=== PATIENT | male | born 1960 | race Caucasian/White ===

== ENCOUNTER 2020-08-13 13:41 | Inpatient (IN) | payer MEDICARE ==
[2020-08-13] MEDS ORDERED: MORPHINE 4 MG/ML SYR ONE (14:20)
[2020-08-13] MEDS ORDERED: ONDANSETRON 4 MG/2 ML VIAL ONE ×2 (14:20→18:42)
--- NOTE | 2020-08-13 15:04 | RAD REPORT ---
EXAM DESCRIPTION: RAD - Chest Single View - 08/13/2020 2:26 pm CLINICAL HISTORY: CHEST PAIN, shortness of breath COMPARISON: None TECHNIQUE: AP portable chest image was obtained 08/13/2020 2:26 pm . FINDINGS: Lungs are clear. Heart and vasculature are normal. No measurable pleural effusion and no p neumothorax. No acute bony abnormality seen. No acute aortic findings suspected. IMPRESSION: No acute cardiopulmonary process.
[2020-08-13 15:33] LABS: Absolute Lymphocytes (CBC) 1.6 K/uL (0.7-4.9); Basophils % 0.5 % (0-1.3); Hematocrit 46.8 % (39.6-49.0); Lymphocytes % 10.2 % (15.3-44.8); MPV 8.3 fL (7.6-11.3); Protime INR 1.03
[2020-08-13] MEDS ORDERED: NA CHLORIDE 0.9% 1,000 ML ONE ×3 (15:36→20:48)
[2020-08-13] MEDS ORDERED: NITROGLYCERIN 0.4 MG/TAB SL ONE (15:36)
[2020-08-13 15:48] LABS: Albumin 4.5 g/dL (3.4-5.0); Bilirubin Direct 0.2 mg/dL (0-0.2); Bilirubin Total 1.1 mg/dL (0.2-1.0); Magnesium 2.1 mg/dL (1.8-2.4); Potassium 3.8 mmol/L (3.5-5.1); Protein, Total 8.4 g/dL (6.4-8.2)
[2020-08-13 15:52] LABS: Troponin (Emerg Dept Use Only) 0.56 ng/mL (0.0-0.045)
[2020-08-13] MEDS ORDERED: ASPIRIN 81 MG CHEWABLE TABLET ONE (16:20)
[2020-08-13] MEDS ORDERED: FENTANYL CITR 100 MCG/2 ML ONE (16:21)
[2020-08-13] MEDS ORDERED: ENOXAPARIN 100 MG/ML SYR SQ ONE (16:21)
--- NOTE | 2020-08-13 16:23 | ER ---
Nurse's Notes [facility] Name: Srinivasa Singer Age: 60 yrs Sex: Male : 1960 Arrival Date: 08/13/2020 Time: 13:43 Bed 4 Private MD: Diagnosis: Non-ST elevation (NSTEMI) myocardial infarction Presentation: 08/13 13:44 Chief complaint: Patient states: CP and SOB for 2 hours [employer]. Numbness/tingling R arm. ll1 Coronavirus screen: Client denies travel out of the [place] in the last 14 days. At this time, the client does not indicate any symptoms associated with coronavirus-19. Ebola Screen: Patient denies travel to an Ebola-affected area in the 21 days before illness onset. Initial Sepsis Screen: Does the patient meet any 2 criteria? No. Patient's initial sepsis screen is negative. Does the patient have a suspected source of infection? No. Patient's initial sepsis screen is negative. Risk Assessment: Do you want to hurt yourself or someone else? Patient reports no desire to harm self or others. Onset of symptoms was August 13, 2020. 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 - Social history:: Smoking status: Patient denies any tobacco usage or history of. - Family history:: not pertinent. - Hospitalizations: : No recent hospitalization is reported. Screenin:00 Abuse screen: Denies threats or abuse. Denies injuries from another. Nutritional jl7 screening: No deficits noted. Tuberculosis screening: No symptoms or risk factors identified. Fall Risk IV access (20 points). Total Ramirez Fall Scale indicates No Risk (0-24 pts). Assessment: 14:00 General: Appears in no apparent distress. uncomfortable, Behavior is calm, cooperative, jl7 appropriate for age. Pain: Complains of pain in anterior aspect of left upper chest Pain radiates to left arm Pain currently is 10 out of 10 on a pain scale. Quality of pain is described as burning, Pain began suddenly, 2 hours ago. Is continuous. Neuro: Level of Consciousness is awake, alert, obeys commands, Oriented to person, place, time, situation. Cardiovascular: Reports chest pain, nausea, vomiting. Respiratory: Airway is patent Respiratory effort is even, unlabored, Respiratory pattern is regular, symmetrical. Derm: Skin is pink, warm \T\ dry. 15:02 Reassessment: Patient appears in no apparent distress at this time. Patient and/or jd3 family updated on plan of care and expected duration. Pain level reassessed. Patient is alert, oriented x 3, equal unlabored respirations, skin warm/dry/pink. 16:26 Reassessment: Patient appears in no apparent distress at this time. Patient and/or jd3 family updated on plan of care and expected duration. Pain level reassessed. Patient is alert, oriented x 3, equal unlabored respirations, skin warm/dry/pink. 17:25 Reassessment: Patient appears in no apparent distress at this time. Patient and/or jd3 family updated on plan of care and expected duration. Pain level reassessed. Patient is alert, oriented x 3, equal unlabored respirations, skin warm/dry/pink. 18:25 Reassessment: Patient appears in no apparent distress at this time. Patient and/or jd3 family updated on plan of care and expected duration. Pain level reassessed. Patient is alert, oriented x 3, equal unlabored respirations, skin warm/dry/pink. provider at bedside discussing plan of care. 20:00 Reassessment: life flight will come in 30 minutes, call made to [facility] they said rr5 to call back after 10minutes. 20:06 General: Appears in no apparent distress. comfortable, Behavior is calm, cooperative, rr5 appropriate for age. Pain: Complains of pain in chest. Neuro: Level of Consciousness is awake, alert, obeys commands, Oriented to person, place, time. Cardiovascular: Reports chest pain, Capillary refill < 3 seconds Patient's skin is warm and dry. Respiratory: Airway is patent Respiratory effort is even, unlabored, Respiratory pattern is regular, symmetrical. Derm: Skin is intact, is healthy with good turgor, Skin temperature is warm. 20:39 Reassessment: Patient appears in no apparent distress at this time. Patient is alert, rr5 oriented x 3, equal unlabored respirations, skin warm/dry/pink. report given to [facility] awake alert vital signs taken and recorded. Vital Signs: 13:44 BP 128 / 78; Pulse 80; Resp 18; Temp 97.2; Pulse Ox 98% ; Weight 92.99 kg; Height 5 ft. ll1 8 in. (172.72 cm); Pain 10/10; 15:01 BP 126 / 78; Pulse 85; Resp 17 S; Pulse Ox 95% on R/A; jd3 16:26 BP 106 / 56; Pulse 85; Resp 15 S; Pulse Ox 100% on R/A; jd3 17:42 BP 90 / 68; Pulse 84; Resp 16 S; Pulse Ox 95% on R/A; jd3 18:30 BP 92 / 64; Pulse 88; Resp 17 S; Pulse Ox 95% on R/A; jd3 19:58 BP 92 / 71; Pulse 102; Resp 16; Pulse Ox 96% ; rr5 20:43 BP 95 / 62; Pulse 100; Resp 19; Pulse Ox 95% ; rr5 13:44 Body Mass Index 31.17 (92.99 kg, 172.72 cm) ll1 ED Course: 13:43 Patient arrived in ED. ll1 13:45 Triage completed. ll1 13:46 Arm band placed on. ll1 13:53 Valeriy Pace MD is Attending Physician. rn 14:00 Patient has correct armband on for positive identification. Placed in gown. Bed in low jl7 position. Call light in reach. Side rails up X 1. cattle sticker on. Pulse ox on. NIBP on. 14:00 EKG done, by ED staff, reviewed by Valeriy Pace MD. Patient maintains SpO2 saturation jl7 greater than 95% on room air. 14:10 Missed attempt(s): 22 gauge in right upper arm. Bleeding controlled, band aid applied, jl7 catheter tip intact. 14:15 Missed attempt(s): 22 gauge in right hand. Bleeding controlled, band aid applied, jl7 catheter tip intact. 14:21 Laura Mccoy, AJD is Primary Nurse. jl7 14:26 XRAY Chest (1 view) In Process Unspecified. EDMS 14:55 Initial lab(s) drawn, by me, sent to lab. Inserted saline lock: 20 gauge in right jl7 antecubital area, using aseptic technique. ,using aseptic technique. VIA US by DR. PACE Blood collected. 15:01 Daniel Gerber, RN is Primary Nurse. jd3 16:21 Renan Jean MD is Hospitalizing Provider. rn 16:46 Chest Angio In Process Unspecified. EDMS 18:23 Notified ED physician of a critical lab result(s). Trop 7.0, CK MB 52.3 Notified ca1 primary nurse of. 18:34 Initiated transfer at [facility] with Xander. Stated he would work on checking for a bed tt3 and call back. 19:00 Xander called back and stated that they don't have any CCU beds currently but are working tt3 to make accommodations for the pt. Informed Dr. Pace. 19:01 Initiated transfer at [facility] with Giulia Richardson. Stated she would do a bed tt3 check and call back. 19:09 Giulia Richardson called back and stated that they would have to deny due to capacity. tt3 19:11 Initiated transfer at [facility] with Lorena Hawk. Stated she would do a bed check tt3 and call back. 19:28 Initiated transfer at [facility] with Esmer Queen. Stated she would do a capacity check and tt3 call back. 19:30 [facility] called back and did a consult with Dr. Pace. Was informed the pt was tt3 accepted. Waiting for admin approval. [facility] to be called for transport. 19:31 Giulia Richardson from [facility] called and stated that the [facility] would tt3 have to deny due to capacity as well. 19:35 Vanessa Londono from [facility] called back with admin approval. The accepting physician tt3 is Dr. Gibson. Dr. Gibson accepted at 19:33. The pt is going to [facility] CCU 2 Bed 6211. Nurse to call report to . Face sheet and covid results faxed to per Vanessa's request. 20:43 No provider procedures requiring assistance completed. Patient transferred, IV remains rr5 in place. intact, No redness/swelling at site. Administered Medications: 14:42 Drug: morphine 4 mg Route: IVP; Site: right antecubital; jl7 15:40 Follow up: Response: No adverse reaction; RASS: Alert and Calm (0) jd3 14:45 Drug: Zofran (Ondansetron) 4 mg Route: IVP; Site: right antecubital; jl7 15:40 Follow up: Response: No adverse reaction jd3 15:20 Drug: Nitroglycerin 0.4 mg Route: Sublingual; ca1 16:00 Follow up: Response: No adverse reaction jd3 15:20 Drug: NS 0.9% 1000 ml Route: IV; Rate: 1000 ml; Site: right antecubital; ca1 16:00 Follow up: Response: No adverse reaction; IV Status: Completed infusion; IV Intake: jd3 1000ml 16:25 Drug: Aspirin Chewable Tablet 324 mg Route: PO; jd3 17:20 Follow up: Response: No adverse reaction jd3 16:25 Drug: fentaNYL (PF) 75 mcg Route: IVP; Site: left antecubital; jd3 17:20 Follow up: Response: No adverse reaction; RASS: Alert and Calm (0) jd3 16:25 Drug: Lovenox (enoxaparin) 1 mg/kg Route: Sub-Q; Site: abdomen; jd3 17:20 Follow up: Response: No adverse reaction jd3 17:44 Drug: NS 0.9% 1000 ml Route: IV; Rate: 1 bolus; Site: left antecubital; jd3 18:40 Follow up: Response: No adverse reaction; IV Status: Completed infusion; IV Intake: jd3 1000ml 18:32 Drug: Zofran (Ondansetron) 4 mg Route: IVP; Site: left antecubital; jd3 19:17 Follow up: Response: No adverse reaction jd3 18:38 Drug: PlaVIX (clopidogrel) 300 mg Route: PO; jd3 19:18 Follow up: Response: No adverse reaction jd3 Intake: 16:00 IV: 1000ml; Total: 1000ml. jd3 18:40 IV: 1000ml; Total: 2000ml. jd3 Outcome: 16:22 Decision to Hospitalize by Provider. rn 19:05 ER care complete, transfer ordered by MD. rn 20:43 Transferred by helicopter to [facility], Transfer form completed. rr5 20:43 Condition: stable 20:43 Instructed on the need for transfer. 20:43 Patient left the ED. rr5 Signatures: Dispatcher [employer] EDMS Valeriy Pace MD MD rn Leal, Jahala RN RN jl7 Daniel Gerber RN RN jd3 Lc Ferraro RN RN rr5 Marisel Zapata RN RN ca1 Treva Tena RN RN ll1 Boone Sood tt3
--- NOTE | 2020-08-13 16:23 | EDPHYS ---
Physician Documentation [facility] Name: Srinivasa Singer Age: 60 yrs Sex: Male : 1960 Arrival Date: 08/13/2020 Time: 13:43 Bed 4 Private MD: ED Physician Valeriy Pace HPI: 08/13 14:23 This 60 yrs old Male presents to ER via Wheelchair with complaints of Chest rn Pain. 14:23 The patient or guardian reports chest pain that is located primarily in the substernal rn area. 14:23 Onset: 2 hour(s) ago. The pain radiates to the right arm. Associated signs and rn symptoms: Pertinent positives: diaphoresis, nausea, Pertinent negatives: abdominal pain, syncope, vomiting. The chest pain is described as aching, a heaviness. Duration: The patient or guardian reports a single episode, that is still ongoing. Modifying factors: The symptoms are alleviated by nothing. the symptoms are aggravated by nothing. Severity of pain: At its worst the pain was moderate in the emergency department the pain is unchanged. The patient has not experienced similar symptoms in the past. Reports substernal chest pain, radiates down right arm, assoc with nausea and diaphoresis, no fever/cough/trauma/abd pain. Not helped with Tums. . 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 - Social history:: Smoking status: Patient denies any tobacco usage or history of. - Family history:: not pertinent. - Hospitalizations: : No recent hospitalization is reported. ROS: 14:23 Constitutional: Negative for fever, chills, and weight loss, Eyes: Negative for injury, rn pain, redness, and discharge, Neck: Negative for injury, pain, and swelling, Cardiovascular: Negative for palpitations, and edema, Respiratory: Negative for shortness of breath, cough, wheezing, and pleuritic chest pain, Abdomen/GI: Negative for abdominal pain, vomiting, diarrhea, and constipation, Back: Negative for injury and pain, : Negative for injury, bleeding, discharge, and swelling, MS/Extremity: Negative for injury and deformity, Skin: Negative for injury, rash, and discoloration, Neuro: Negative for headache, weakness, and seizure. Exam: 14:23 Constitutional: This is a well developed, well nourished patient who is awake, alert, rn appears uncomfortable Head/Face: Normocephalic, atraumatic. Eyes: Pupils equal round and reactive to light, extra-ocular motions intact. Cardiovascular: Regular rate and rhythm. No pulse deficits. Respiratory: No increased work of breathing, no retractions or nasal flaring. Abdomen/GI: Soft, non-tender Skin: Warm, dry, no cyanosis MS/ Extremity: Pulses equal, no cyanosis. Neuro: Awake and alert, GCS 15 Vital Signs: 13:44 BP 128 / 78; Pulse 80; Resp 18; Temp 97.2; Pulse Ox 98% ; Weight 92.99 kg; Height 5 ft. ll1 8 in. (172.72 cm); Pain 10/10; 15:01 BP 126 / 78; Pulse 85; Resp 17 S; Pulse Ox 95% on R/A; jd3 16:26 BP 106 / 56; Pulse 85; Resp 15 S; Pulse Ox 100% on R/A; jd3 17:42 BP 90 / 68; Pulse 84; Resp 16 S; Pulse Ox 95% on R/A; jd3 18:30 BP 92 / 64; Pulse 88; Resp 17 S; Pulse Ox 95% on R/A; jd3 19:58 BP 92 / 71; Pulse 102; Resp 16; Pulse Ox 96% ; rr5 20:43 BP 95 / 62; Pulse 100; Resp 19; Pulse Ox 95% ; rr5 13:44 Body Mass Index 31.17 (92.99 kg, 172.72 cm) ll1 Procedures: 14:42 Peripheral line: by aseptic technique a peripheral line was placed in the right rn antecubital vein, Using ultrasound guidance, single stick 20g IV, good flow and flush. . MDM: 13:53 Patient medically screened. rn 14:42 ED course: Nursing unable to obtain IV, Ultrasound IV placed peripherally by me. . rn 15:31 ED course: Not improved with morphine or nitro, labs still pending, getting another ECG rn . 15:54 ED course: NO change in ECG, will give aspirin and lovenox for NSTEMI, admit to Dr. dayanara Jean. . 16:20 Differential diagnosis: acute myocardial infarction, coronary artery disease stable rn angina, unstable angina. The patient was given aspirin in the Emergency Department. COREY Risk Score: 1 - Three or more CAD risk factors, [Family Hx], [HTN], [Elevated Cholesterol], 1 - Recent [<24hrs] Severe Angina, 1 - Elevated Cardiac Markers, 1 - ST deviation >0.5mm, TOTAL SCORE = 4. Data reviewed: vital signs, nurses notes, lab test result(s), EKG, radiologic studies, plain films. Counseling: I had a detailed discussion with the patient and/or guardian regarding: the historical points, exam findings, and any diagnostic results supporting the discharge/admit diagnosis, lab results, radiology results, the need for further work-up and treatment in the hospital. Response to treatment: the patient's symptoms have mildly improved after treatment, and as a result, I will admit patient. Admission orders: after a detailed discussion of the patient's condition and case, the admit orders are written by me. 18:25 ED course: Notified of elevated troponin, now 7.0, repeat ECG ordered, paging clinical quality rn for cath.. 18:32 ED course: Consulted with Dr. David, unable to cath here, recommends immediate cath rn for unstable NSTEMI, patient received aspirin and lovenox earlier, will give plavix and transfer for cath.. 18:33 ED course: Dr. David does not recommend lytics at this time.. rn 19:01 ED course: [facility] states no current CCU bed for patient, will continue to try and rn seek accommodation but also going to try [facility] to increase chance of rapid transfer. . 19:10 ED course: [facility] declined transfer, no beds per transfer center. . rn 08/13 14:00 Order name: Basic Metabolic Panel rn 08/13 14:00 Order name: CBC with Diff rn 08/13 14:00 Order name: LFT's rn 08/13 14:00 Order name: Magnesium; Complete Time: 15:53 rn 08/13 14:00 Order name: NT PRO-BNP; Complete Time: 15:53 rn 08/13 14:00 Order name: PT-INR; Complete Time: 15:53 rn 08/13 14:00 Order name: Troponin (emerg Dept Use Only); Complete Time: 15:53 rn 08/13 14:01 Order name: Basic Metabolic Panel; Complete Time: 15:53 EDMS 08/13 14:01 Order name: CBC with Automated Diff; Complete Time: 15:53 EDMS 08/13 14:02 Order name: Liver (Hepatic) Function; Complete Time: 15:53 EDMS 08/13 14:41 Order name: COVID-19 : Document "Date of Symptom Onset" if Symptomatic. rn 08/13 16:57 Order name: CKMB Creatine Kinase MB EDWA 08/13 16:57 Order name: CKMB Creatine Kinase MB; Complete Time: 18:26 EDMS 08/13 16:57 Order name: CKMB Creatine Kinase MB EDMS 08/13 14:00 Order name: XRAY Chest (1 view); Complete Time: 15:14 rn 08/13 16:16 Order name: Chest Angio; Complete Time: 17:22 EDMS 08/13 16:57 Order name: CBC with Automated Diff EDWA 08/13 16:57 Order name: CBC with Automated Diff EDWA 08/13 16:57 Order name: CKMB Creatine Kinase MB EDWA 08/13 16:57 Order name: Comprehensive Metabolic Panel EDWA 08/13 16:57 Order name: Comprehensive Metabolic Panel EDWA 08/13 16:57 Order name: Troponin I EDWA 08/13 16:57 Order name: Troponin I; Complete Time: 18:26 EDMS 08/13 16:57 Order name: Troponin I EDWA 08/13 18:50 Order name: SARS-COV-2 RT PCR; Complete Time: 19:00 EDWA 08/13 14:00 Order name: EKG; Complete Time: 14:02 rn 08/13 14:00 Order name: Cardiac monitoring; Complete Time: 14:08 rn 08/13 14:00 Order name: EKG - Nurse/Tech; Complete Time: 14:07 rn 08/13 14:00 Order name: IV Saline Lock; Complete Time: 14:52 rn 08/13 14:00 Order name: Labs collected and sent; Complete Time: 14:52 rn 08/13 14:01 Order name: O2 Per Protocol; Complete Time: 14:21 rn 08/13 14:01 Order name: O2 Sat Monitoring; Complete Time: 14:21 rn 08/13 15:31 Order name: EKG; Complete Time: 15:32 rn 08/13 15:31 Order name: EKG - Nurse/Tech; Complete Time: 15:43 rn 08/13 16:57 Order name: CONS Physician Consult EDMS 08/13 16:57 Order name: Heart Healthy EDMS Administered Medications: 14:42 Drug: morphine 4 mg Route: IVP; Site: right antecubital; jl7 15:40 Follow up: Response: No adverse reaction; RASS: Alert and Calm (0) jd3 14:45 Drug: Zofran (Ondansetron) 4 mg Route: IVP; Site: right antecubital; jl7 15:40 Follow up: Response: No adverse reaction jd3 15:20 Drug: Nitroglycerin 0.4 mg Route: Sublingual; ca1 16:00 Follow up: Response: No adverse reaction jd3 15:20 Drug: NS 0.9% 1000 ml Route: IV; Rate: 1000 ml; Site: right antecubital; ca1 16:00 Follow up: Response: No adverse reaction; IV Status: Completed infusion; IV Intake: jd3 1000ml 16:25 Drug: Aspirin Chewable Tablet 324 mg Route: PO; jd3 17:20 Follow up: Response: No adverse reaction jd3 16:25 Drug: fentaNYL (PF) 75 mcg Route: IVP; Site: left antecubital; jd3 17:20 Follow up: Response: No adverse reaction; RASS: Alert and Calm (0) jd3 16:25 Drug: Lovenox (enoxaparin) 1 mg/kg Route: Sub-Q; Site: abdomen; jd3 17:20 Follow up: Response: No adverse reaction jd3 17:44 Drug: NS 0.9% 1000 ml Route: IV; Rate: 1 bolus; Site: left antecubital; jd3 18:40 Follow up: Response: No adverse reaction; IV Status: Completed infusion; IV Intake: jd3 1000ml 18:32 Drug: Zofran (Ondansetron) 4 mg Route: IVP; Site: left antecubital; jd3 19:17 Follow up: Response: No adverse reaction jd3 18:38 Drug: PlaVIX (clopidogrel) 300 mg Route: PO; jd3 19:18 Follow up: Response: No adverse reaction jd3 Disposition: 19:33 Critical Care:. rn Disposition: 08/13/20 19:05 Transfer ordered to [facility]. Diagnosis is Non-ST elevation (NSTEMI) myocardial infarction. - Reason for transfer: Higher level of care. - Accepting physician is Dr. Jaramillo. - Condition is Stable. - Problem is new. - Symptoms have improved. Signatures: Dispatcher [employer] EDMS Valeriy Pace MD MD rn Leal, Jahala, RN RN jl7 Daniel Gerber, RN RN jd3 Lc Ferraro RN RN rr5 Marisel Zapata RN RN ca1 Treva Tena RN RN ll1 Corrections: (The following items were deleted from the chart) 19:04 16:22 Hospitalization Ordered by Renan Jean MD for Inpatient Admission. Preliminary rn diagnosis is Non-ST elevation (NSTEMI) myocardial infarction. Bed requested for Telemetry/MedSurg (Inpatient). Status is Inpatient Admission. Condition is Stable. Problem is new. Symptoms have improved. rn 19:33 19:05 08/13/2020 19:05 Transfer ordered to [facility]. rn Diagnosis is Non-ST elevation (NSTEMI) myocardial infarction. Reason for transfer: Higher level of care. Accepting physician is . Condition is Stable. Problem is new. Symptoms have improved. rn 20:43 19:33 08/13/2020 19:05 Transfer ordered to [facility]. rr5 Diagnosis is Non-ST elevation (NSTEMI) myocardial infarction. Reason for transfer: Higher level of care. Accepting physician is Dr. Jaramillo. Condition is Stable. Problem is new. Symptoms have improved. rn
--- NOTE | 2020-08-13 16:45 | P.HP ---
Certification for Inpatient Patient admitted to: Inpatient With expected LOS: >2 Midnights Practitioner: I am a practitioner with admitting privileges, knowledge of patient current condition, hospital course, and medical plan of care. Services: Services provided to patient in accordance with Admission requirements found in Title 42 Section 412.3 of the Code of Federal Regulations Patient History Date of Service: 08/13/20 Reason for admission: chest pain History of Present Illness: 60 yo Male with past medical history of hypertension, hyperlipidemia, GERD , possible hereditary Hemochromatosis came with complaints of Chest Pain. 14:23 The patient or guardian reports chest pain that is located primarily in the substernal in location and was radiating to the left side of the chest associated with nausea and diaphoresis. Patient states that he has been having pain for last 1 week and has tried Tums thing in that it is GERD without much relief. Pain is dull aching with heaviness in the chest worse with any exercise and better with rest, denies any previous history of CAD. No fever or chills Nonsmoker Family history of CAD present Patient was assessed in the ER and was admitted for possible chest pain to rule out ACS and further monitoring Allergies No Known Allergies Allergy (Unverified 08/13/20 17:49) Home medications list reviewed: Yes - Past Medical/Surgical History Past Medical History: Reviewed- Non-Contributory -: Hypertension -: Hyperlipidemia -: GERD Past Surgical History: Reviewed- Non-Contributory - Family History Family History: Reviewed- Non-Contributory - Family History Father -: Heart disease - Social History Smoking Status: Never smoker Review of Systems 10-point ROS is otherwise unremarkable Physical Examination - Vital Signs Temperature: 98.2 F Blood Pressure: 108/78 Pulse: 76 Respirations: 18 - Physical Exam General: Alert, In no apparent distress, Oriented x3 HEENT: Atraumatic, Normocephalic Neck: Supple, 2+ carotid pulse no bruit Respiratory: Clear to auscultation bilaterally, Normal air movement Cardiovascular: Regular rate/rhythm, Normal S1 S2 Capillary refill: <2 Seconds Gastrointestinal: Soft and benign, W/out hepatosplenomegaly Musculoskeletal: No clubbing, No swelling Integumentary: No rashes, No breakdown Neurological: Normal speech, Normal strength at 5/5 x4 extr Lymphatics: No axilla or inguinal lymphadenopathy - Studies Laboratory Data (last 24 hrs) 08/13/20 14:45: PT 11.8, INR 1.03 08/13/20 14:45: WBC 15.50 H, Hgb 15.8, Hct 46.8, Plt Count 262 08/13/20 14:45: Sodium 138, Potassium 3.8, BUN 16, Creatinine 1.14, Glucose 152 H, Magnesium 2.1, Total Bilirubin 1.1 H, AST 22, ALT 30, Alkaline Phosphatase 64 Assessment and Plan - Problems (Diagnosis) (1) NSTEMI (non-ST elevated myocardial infarction) Current Visit: Yes Status: Acute Plan: Monitor under telemetry trend cardiac enzymes Start on aspirin and statin Cardiology consulted will get an echocardiogram Monitor closely will also get a CT of the chest to rule out any aortic pathology (2) Hypertension Current Visit: Yes Status: Chronic Plan: Continue home medications and titrate as needed antihypertensives titrated (3) Hyperlipidemia Current Visit: Yes Status: Chronic Plan: Continue statin Will get a lipid panel in a.m. (4) GERD (gastroesophageal reflux disease) Current Visit: Yes Status: Chronic Plan: Start on PPI Discharge Plan: Home Plan to discharge in: 48 Hours - Advance Directives Does patient have a Living Will: No Does patient have a Durable POA for Healthcare: No - Code Status/Comfort Care Code Status: Full Code Time Spent Managing Pts Care (In Minutes): 42
[2020-08-13 16:51] VITALS: TEMP 98.2
[2020-08-13] MEDS ORDERED: ACETAMINOPHEN 500 MG TAB PO PRN (16:54)
[2020-08-13] MEDS ORDERED: ONDANSETRON 4 MG/2 ML VIAL IV PRN (16:54)
[2020-08-13] MEDS ORDERED: MORPHINE 4 MG/ML SYR IV PRN (16:54)
--- NOTE | 2020-08-13 16:54 | RAD REPORT ---
EXAM DESCRIPTION: CT - Chest Angio - 08/13/2020 4:46 pm CLINICAL HISTORY: chest pain COMPARISON: Chest Single View dated 08/13/2020 TECHNIQUE: Dynamically enhanced 3 mm thick images of the chest were obtained during administration o f approximately 150mL Isovue 370 IV contrast. Coronal and oblique MIP reconstruction images were gene rated and reviewed. Exam utilizes a protocol to evaluate the pulmonary arterial tree. All CT scans are performed using dose optimization technique as appropriate and may include automated exposure control or mA/KV adjustment according to patient size. FINDINGS: No pulmonary emboli are identified. The aorta as imaged shows no acute or suspicious finding. No pericardial thickening or effusion. No infiltrate or mass in the lung parenchyma. Motion degradation somewhat limits assessment. Minimal interstitial edema or infiltrate could be masked. No pleural effusion or pleural thickening. No mediastinal or hilar suspicious masses. No chest wall masses or abnormal axillary lymphadenopathy. IMPRESSION: No pulmonary emboli identified. No mass or consolidation identified. Respiratory motion accentuates the interstitial pattern potentia lly masking a minimal interstitial edema or infiltrate.
[2020-08-13] MEDS ORDERED: HYDROMORPHONE HCL 1 MG/ML INJ ONE (17:54)
[2020-08-13 18:24] LABS: CKMB Creatine Kinase MB 52.3 ng/mL (0.3-3.6)
[2020-08-13] MEDS ORDERED: CLOPIDOGREL 75 MG TABLET ONE (18:54)
[2020-08-13 20:59] VITALS: BP 95/62; O2SAT 95
[2020-08-13] MEDS ORDERED: ATORVASTATIN 40 MG TAB PO SCH (21:00)
[2020-08-14] MEDS ORDERED: ASPIRIN EC 81 MG TAB PO SCH (09:00)
[2020-08-14] MEDS ORDERED: PANTOPRAZOLE 40MG TABLET PO SCH (16:58)
== END 2020-08-13 20:43 | disposition short-term general hospital (02) | DRG 282 ==
LOC: ER 13:41 → ERHOLD 16:55
PROVIDERS: ADMIT Family Medicine; ATTEND Family Medicine
DX: I21.4 Non-ST elevation (NSTEMI) myocardial infarction (principal); I10 Essential (primary) hypertension; E78.5 Hyperlipidemia, unspecified; K21.9 Gastro-esophageal reflux disease without esophagitis; I25.10 Atherosclerotic heart disease of native coronary artery without angina pectoris; Z20.822 Contact with and (suspected) exposure to COVID-19
CPT/HCPCS: 36415; 71045; 71275; 80048; 80076; 82553; 83735; 83880; 84484; 85025; 85610; 93005; 96372; 99285; J1170; J1650; J2405; J3010; J7030; Q9967; U0003

== ENCOUNTER 2020-08-29 23:28 | Inpatient (IN) | payer MEDICARE ==
--- OUTSIDE RECORDS SUMMARY | 2020-08-29 23:36 | XMS REPORT | Continuity of Care Document ---
:1960 Author Organization [facility] t Address [address] [place] [address] Care Team Providers Name Role Phone Ana CHARLES Primary Care Physician Kanika STREET Attending Clinician Kye STREET, Ulysses Attending Clinician Unavailable Marco TOLEDO Attending Clinician Unavailable Marco Toledo MD Attending Clinician Patrick Banerjee MD Attending Clinician Jamal Flores MD Attending Clinician Mickey CHARLES Attending Clinician Elliott Phillips MD Attending Clinician Marco TOLEDO Admitting Clinician Unavailable Payers Payer Name Policy Type Policy Effective Date Expiration Date Sour ce Number [facility] [id number] [facility] Il[facility] - MEDICARE MGD 00:00:00 - Medical CAREAA/MEDICARE Center [id number] 2020-Present Problems Condition Condition Condition Status Onset Resolution Last Treating Co mments Source Name Details Category Date Date Treatment Clinician Date s/p ACB X3 s/p ACB X3 Disease Active [facility] By By 08-15 Ilana Flores 00:00: Medical 08-14-20 08-14-20 Center NSTEMI NSTEMI Disease Active [facility]non-ST 08-13 Ilana - elevated elevated 00:00: Medica l myocardial myocardial 00 Ce nter infarction infarction ) ) Anemia, Anemia, Disease Active [facility] unspecifie unspecifie Althea kes - d type d type Medical Center Oliguria Oliguria Disease Active [facility] t [facility] Acute on Acute on Disease Active [facility] t chronic chronic [facility] - systolic systolic Medica l heart heart Center failure failure Acute Acute Disease Active [facility] St respirator respirator kes - y y Medical insufficie insufficie Ce nter ncy ncy Paroxysmal Paroxysmal Disease Active [facility] atrial atrial [facility] - fibrillati fibrillati Me dical on with on with Center RVR RVR Acute Acute Disease Active [facility] blood loss blood loss [facility] anemia anemia [facility] Thrombocyt Thrombocyt Disease Active [facility] openia openia [facility] Hyperglyce Hyperglyce Disease Active [facility] flaco flaco [facility] Allergies, Adverse Reactions, Alerts Allergy Allergy Status Severity Reaction(s) Onset Inactive Treating Comm ents Source Name Type Date Date Clinician Bee Drug Active Anaphylaxis BEE STING [facility] Sting Allergy 5-20 [facility] - Kit 00:00: Medical 00 [place] Social History Social Habit Start Date Stop Date Quantity Comments Source Sex Assigned At [facility] Medications Ordered Filled Start Stop Current Ordering Indication Dosage Frequency Signature Comments Components Source Medication Medication Date Date Medication? Clinician (SIG) Name Name aspirin 81 2021- Yes 81mg QD Take [address] [facility] MG chewable -24 08- tablet (81 L ukes - tablet 00:00: 23:59 mg total) Medic al 00 :00 by mouth Center daily. bumetanide 2020- Yes 1mg QD Take [address] [facility] (BUMEX) 1 --30 tablet (1 Luke [facility] - MG tablet 00:00: 23:59 mg total) Me dical 00 :00 by mouth Center daily for 30 days. amiodarone 2020- Yes 200mg Q.5D Take [address] [facility] (PACERONE) -23 09- tablet [facility] - 200 MG 00:00: 23:59 (200 mg Medical tablet 00 :00 total) by Center mouth 2 (two) times daily for 30 days. apixaban 2020- Yes 5mg Q.5D Take [address] [facility] (ELIQUIS) 5 -23 09- tablet (5 Althea kes - mg Tab 00:00: 23:59 mg total) Medic al tablet 00 :00 by mouth 2 Center (two) times daily for 30 days. metoprolol 2020- Yes 25mg Q.5D Take [address] [address] tartrate 08-23 tablet (25 [facility] - (LOPRESSOR) 00:00: 23:59 mg total) Medical 25 MG 00 :00 by mouth 2 Center tablet (two) times daily for 30 days. simvastatin 2020- Yes 80mg QD Take [address] [facility] (Zocor) 80 08-23 tablet (80 Althea kes - MG tablet 00:00: 23:59 mg total) Me dical 00 :00 by mouth Center nightly for 30 days. HYDROcodone 2020- Yes 1{tbl} Take [address] -acetaminop 08-23 tablet by Althea jenkins (NORCO 00:00: 23:59 mouth Medic al 5-325) 00 :00 every 6 Center 5-325 mg (six) per tablet hours as needed for up to 10 days. Max Daily Amount: 4 tablets mINOCYCLine 2020- No 100mg Take [address] (MINOCIN,DY 08-23- capsule Luke s - NACIN) 100 00:00: 23:59 (100 mg Med ical MG capsule 00 :00 total) by Cent er mouth every 12 (twelve) hours for 5 days. atorvastati 2020- No 40mg QD Take [address] [facility] [address] n (LIPITOR) 08-23 tablet (40 L ukes - 40 MG 00:00: 00:00 mg total) Medica l tablet 00 :00 by mouth Center nightly for 30 days. Vital Signs Vital Name Observation Time Observation Value Comments Source Heart rate 2020-08-23 09:02:00 74 /min [facility] Respiratory rate 2020-08-23 09:02:00 20 /min [facility] Oxygen saturation in 2020-08-23 09:02:00 97 /min [facility] - Arterial blood by Medical Ce nter Pulse oximetry Systolic blood 2020-08-23 08:47:00 117 mm[Hg] [facility] Diastolic blood 2020-08-23 08:47:00 62 mm[Hg] [facility] Body temperature 2020-08-23 08:47:00 36.5 Tracey [facility] Body weight 2020-08-23 05:50:00 95.074 kg [facility] BMI 2020-08-23 05:50:00 31.87 kg/m2 [facility] Body height 2020-08-13 21:17:00 172.7 cm [facility] Procedures Procedure Date / Time Performing Clinician Source Performed VANCOMYCIN LEVEL, TROUGH 2020-08-23 01:45:00 Luann Thomson [facility] COMPREHENSIVE METABOLIC PANEL 2020-08-23 01:45:00 Juno Jackson [facility] CBC W/PLT COUNT & AUTO 2020-08-23 01:45:00 Juno Jackson [facility] DIFFERENTIAL [facility] MAGNESIUM 2020-08-23 01:45:00 Juno Jackson [facility] PHOSPHORUS 2020-08-23 01:45:00 Juno Jackson [facility] SARS-COV2/RT-PCR ([facility] & REF 2020-08-22 16:10:00 Juno Jackson [facility] - LABS) [facility] COMPREHENSIVE METABOLIC PANEL 2020-08-22 05:06:00 Juno Jackson [facility] CBC W/PLT COUNT & AUTO 2020-08-22 05:06:[address] [facility] DIFFERENTIAL [facility] MAGNESIUM 2020-08-22 05:06:00 Juno Jackson [facility] PHOSPHORUS 2020-08-22 05:06:00 Juno Jackson [facility] VENOUS DOPPLER LEG, LEFT 2020-08-21 12:58:00 Wilfrido Ying [facility] COMPREHENSIVE METABOLIC PANEL 2020-08-21 04:07:00 Juno Jackson [facility] CBC W/PLT COUNT & AUTO 2020-08-21 04:07:00 Juno Jackson [facility] - DIFFERENTIAL [facility] MAGNESIUM 2020-08-21 04:07:00 Juno Jackson [facility] PHOSPHORUS 2020-08-21 04:07:00 Juno Jackson [facility] OXYGEN SATURATION, MEASURED 2020-08-21 04:07:00 Juno Jackson [facility] CALCIUM, IONIZED 2020-08-21 04:07:00 [facility]XY[facility] SATURATION, MEASURED 2020-08-20 12:35:00 Wilfrido Ying [facility] POCT-GLUCOSE METER 2020-08-20 11:12:00 Ruthie Toledo [facility] POCT-GLUCOSE METER 2020-08-20 07:28:00 Ruthie Toledo [facility] COMPREHENSIVE METABOLIC PANEL 2020-08-20 03:40:00 Juno Jackson [facility] CBC W/PLT COUNT & AUTO 2020-08-20 03:40:[address] [facility] DIFFERENTIAL [facility] MAGNESIUM 2020-08-20 03:40:00 Juno Jackson [facility] PHOSPHORUS 2020-08-20 03:40:00 Juno Jackson [facility] OXYGEN SATURATION, MEASURED 2020-08-20 03:40:00 Juno Jackson [facility] CALCIUM, IONIZED 2020-08-20 03:40:00 [facility] DIGOXIN LEVEL 2020-08-20 03:40:00 Wilfrido Ying [facility] XR CHEST 1 VIEW 2020-08-20 01:42:00 Nguyen Cr [facility] PORTABLE/BEDSIDE [facility] OXYGEN SATURATION, MEASURED 2020-08-19 23:15:00 Suhas Shook [facility] POTASSIUM 2020-08-19 17:18:00 Manuel, Juno [facility] MAGNESIUM 2020-08-19 17:18:00 Juno Jackson [facility] PHOSPHORUS 2020-08-19 17:18:00 Juno Jackson [facility] OXYGEN SATURATION, MEASURED 2020-08-19 16:41:00 BooneSuhas [facility] OXYGEN SATURATION, MEASURED 2020-08-19 11:39:00 Wilfrido Ying [facility] COMPREHENSIVE METABOLIC PANEL 2020-08-19 03:51:00 [facility] CBC W/PLT COUNT & AUTO 2020-08-19 03:51:[address] DIFFERENTIAL [facility] MAGNESIUM 2020-08-19 03:51:00 Manuel Juno [facility] PHOSPHORUS 2020-08-19 03:51:00 Manuel Juno [facility] OXYGEN SATURATION, MEASURED 2020-08-19 03:51:00 Juno Jackson [facility] CALCIUM, IONIZED 2020-08-19 03:51:00 Faustino Shin [facility] XR CHEST 1 VIEW 2020-08-19 00:43:00 Nguyen Cr [facility] - PORTABLE/BEDSIDE [facility] 2D ECHO W/ DOPPLER 2020-08-18 21:13:11 Allen Gutierres [facility] (CW/PW/COLOR) [facility] POTASSIUM 2020-08-18 16:22:00 Juno Jackson [facility] MAGNESIUM 2020-08-18 16:22:00 [facility] 2020-08-18 16:22:00 [facility] 2020-08-18 16:22:00 [facility] CBC W/PLT COUNT & AUTO 2020-08-18 16:22:00 Allen Gutierres [facility] XR CHEST 1 VIEW 2020-08-18 16:00:00 Allen Gutierres [facility] PORTABLE/BEDSIDE [facility] OXYGEN SATURATION, MEASURED 2020-08-18 13:10:00 Blanca Belcher [facility] BLOOD GAS, ARTERIAL 2020-08-18 13:07:00 Blanca Belcher [facility] DIGOXIN LEVEL 2020-08-18 13:06:00 [facility] OXY[facility] SATURATION, MEASURED 2020-08-18 10:04:00 Juno Jackson [facility] CALCIUM, IONIZED 2020-08-18 08:18:00 Faustino Shin [facility] BLOOD GAS, ARTERIAL 2020-08-18 07:58:00 Keo Bravo [facility] XR CHEST 1 VIEW 2020-08-18 07:30:00 Patel CrangDc Cr [facility] - PORTABLE/BEDSIDE [facility] COMPREHENSIVE METABOLIC PANEL 2020-08-18 04:17:00 Juno Jackson [facility] CBC W/PLT COUNT & AUTO 2020-08-18 04:17:00 Juno Jackson [facility] MAGNESIUM 2020-08-18 04:17:00 Juno Jackson [facility] PHOSPHORUS 2020-08-18 04:17:00 Juno Jackson [facility] LACTIC ACID, ARTERIAL 2020-08-18 04:17:00 Martinez Lo [facility] OXYGEN SATURATION, MEASURED 2020-08-18 04:17:00 Juno Jackson [facility] POCT-GLUCOSE METER 2020-08-18 00:39:00 Ruthie Toledo [facility] PREPARE LEUKO-REDUCED RBC 2020-08-17 23:54:[address] [facility] PREPARE LEUKO-REDUCED 2020-08-17 23:54:00 Jose Josias Tayomariam [facility] BLOOD GAS, ARTERIAL 2020-08-17 20:51:00 Juno Jackson [facility] OXYGEN SATURATION, MEASURED 2020-08-17 20:51:00 Manuel [facility] BLOOD GAS, ARTERIAL 2020-08-17 17:29:00 Manuel [facility] LACTIC ACID, ARTERIAL 2020-08-17 17:29:00 Manuel [facility] POCT-GLUCOSE METER 2020-08-17 17:00:00 Ruthie Toledo [facility] OXYGEN SATURATION, MEASURED 2020-08-17 16:32:00 Juno Jackson [facility] XR CHEST 1 VIEW 2020-08-17 16:18:00 Juno Jackson [facility] - PORTABLE/BEDSIDE [facility] 2D ECHO W/ DOPPLER 2020-08-17 09:49:[address] (CW/PW/COLOR) [facility] OXYGEN SATURATION, MEASURED 2020-08-17 09:12:00 Juno Jackson [facility] ECG 12-LEAD 2020-08-17 08:42:19 Unknown, Hl7 Doctor [facility] POCT-GLUCOSE METER 2020-08-17 05:54:00 Ruthie Toledo [facility] MAGNESIUM 2020-08-17 02:44:00 Jose Josiaslaila Lainez [facility] LACTATE DEHYDROGENASE (LDH) 2020-08-17 02:44:00 Jose Josiaslaila Cr am [facility] CBC W/PLT COUNT & AUTO 2020-08-17 02:44:00 Martinez Lo [facility] - DIFFERENTIAL [facility] COMPREHENSIVE METABOLIC PANEL 2020-08-17 02:44:00 Juno Jackson [facility] PHOSPHORUS 2020-08-17 02:44:00 Juno Jackson [facility] CALCIUM, IONIZED 2020-08-17 02:44:00 [facility] BLOOD GAS, ARTERIAL 2020-08-17 02:44:00 [facility] LACTIC ACID, ARTERIAL 2020-08-17 02:44:00 Martinez Lo [facility] OXYGEN SATURATION, MEASURED 2020-08-17 02:44:00 Manuel [facility] TYPE AND SCREEN, AUTOMATED 2020-08-17 02:44:00 Jose Josias Corrie [facility] POCT-GLUCOSE METER 2020-08-17 02:37:00 Paige Hendricks Ovidio [facility] XR CHEST 1 VIEW 2020-08-17 00:40:00 [facility] PORTABLE/BEDSIDE [facility] POCT-GLUCOSE METER 2020-08-17 00:04:00 Ruthie Toledo Ovidio [facility] POCT-GLUCOSE METER 2020-08-16 22:02:00 Paige Hendricks [facility] POCT-GLUCOSE METER 2020-08-16 20:16:00 Paige Hendricks [facility] TRANSFUSE LEUKO-REDUCED RED 2020-08-16 19:42:08 Enrike Garciai Tayo [facility] LACTIC ACID, ARTERIAL 2020-08-16 18:48:00 [facility] BLOOD [facility]AS, ARTERIAL 2020-08-16 18:48:00 Jose [facility] CALCIUM, IONIZED 2020-08-16 18:48:00 Jose [facility] OXYGEN SATURATION, MEASURED 2020-08-16 18:48:00 Enrike Garciai Tayo becerra [facility] BASIC METABOLIC PANEL (7) 2020-08-16 18:48:00 Josias Garcia [facility] BILIRUBIN, ADULT TOTAL 2020-08-16 18:48:00 Jose Josiaslaila Lainez I [facility] BILIRUBIN, DIRECT 2020-08-16 18:48:00 [facility]ias [facility] HAPTOGLOBIN 2020-08-16 18:48:00 [facility], [facility] NA-STAT LAB 2020-08-16 18:48:00 [facility], Josiaslaila Lainez [facility] POTASSIUM-STAT LAB 2020-08-16 18:48:00 [facility], [facility] GLUCOSE-STAT LAB 2020-08-16 18:48:00 [facility] system[facility]rike bakeri Migel [facility] HGB/HCT (H&H) - STAT LAB 2020-08-16 18:48:00 [facility] bakeri [facility] POCT-GLUCOSE METER 2020-08-16 18:16:00 Ruthie Toledo [facility] OXYGEN SATURATION, MEASURED 2020-08-16 16:44:00 Juno Jackson [facility] POCT-GLUCOSE METER 2020-08-16 16:37:00 Ruthie Toledo [facility] TRANSFUSE LEUKO-REDUCED 2020-08-16 16:20:18 Josias Garcia [facility] TRANSFUSE LEUKO-REDUCED RED 2020-08-16 14:36:04 Martinez Lo [facility] BLOOD CELLS [facility] POCT-GLUCOSE METER 2020-08-16 11:43:00 Ruthie Toledo [facility] CBC (HEMOGRAM ONLY) 2020-08-16 11:38:00 Josias Garcia [facility] POCT-GLUCOSE METER 2020-08-16 08:41:00 Ruthie Toledo [facility] POCT-GLUCOSE METER 2020-08-16 06:27:00 Ruthie Toledo [facility] XR CHEST 1 VIEW 2020-08-16 04:33:00 [facility] POCT-GLUCOSE METER 2020-08-16 03:51:00 Ruthie Toledo [facility] COMPREHENSIVE METABOLIC PANEL 2020-08-16 03:18:00 Juno Jackson [facility] CBC W/PLT COUNT & AUTO 2020-08-16 03:18:00 Juno Jackson [facility] DIFFERENTIAL [facility] MAGNESIUM 2020-08-16 03:18:00 [facility] PHOSPHORUS 2020-08-16 03:18:00 [facility] CALCIUM, IONIZED 2020-08-16 03:18:00 [facility] BLOOD GAS, ARTERIAL 2020-08-16 03:18:00 [facility] OXYGEN SATURATION, MEASURED 2020-08-16 03:18:00 [facility] LACTIC ACID, ARTERIAL 2020-08-16 03:18:00 [facility] POCT-GLUCOSE METER 2020-08-16 02:11:00 Ruthie Toledo [facility] BLOOD GAS, ARTERIAL 2020-08-15 23:11:00 Juno Jackson [facility] SODIUM NA-STAT LAB 2020-08-15 23:11:00 [facility] POTASSIUM-STAT LAB 2020-08-15 23:11:00 [facility] GLUCOSE-STAT LAB 2020-08-15 23:11:00 [facility] HGB/HCT (H&H) - STAT LAB 2020-08-15 23:11:00 [facility] OXYGEN SATURATION, MEASURED 2020-08-15 23:11:00 Juno Jackson [facility] POCT-GLUCOSE METER 2020-08-15 21:58:00 Ruthie Toledo [facility] BLOOD GAS, ARTERIAL 2020-08-15 21:48:00 [facility] OXYGEN SATURATION, MEASURED 2020-08-15 21:48:00 [facility] CALCIUM, IONIZED 2020-08-15 21:48:00 [facility] LACTIC ACID, ARTERIAL 2020-08-15 21:48:00 [facility] SODIUM NA-STAT LAB 2020-08-15 21:48:00 [facility] POTASSIUM-STAT LAB 2020-08-15 21:48:00 [facility] GLUCOSE-STAT LAB 2020-08-15 21:48:00 [facility] HGB/HCT (H&H) - STAT LAB 2020-08-15 21:48:00 [facility] POCT-GLUCOSE METER 2020-08-15 18:43:00 Ruthie Toledo [facility] SARS-COV2/RT-PCR ([facility] & REF 2020-08-15 18:14:00 Juno Jackson [facility] - LABS) [facility] POCT-GLUCOSE METER 2020-08-15 12:38:00 Ruthie Toledo [facility] LACTIC ACID, ARTERIAL 2020-08-15 12:37:00 Faustion Shin I [facility] POCT-GLUCOSE METER 2020-08-15 08:58:00 Ruthie Toledo [facility] LACTIC ACID, ARTERIAL 2020-08-15 08:55:00 Faustino Shin CH I [facility] POCT-GLUCOSE METER 2020-08-15 06:44:00 Ruthie Toledo [facility] PT/APTT 2020-08-15 03:31:00 Ramos Good [facility] COMPREHENSIVE METABOLIC PANEL 2020-08-15 03:27:00 Juno Jackson [facility] CBC W/PLT COUNT & AUTO 2020-08-15 03:27:00 Juno Jackson [facility] DIFFERENTIAL [facility] MAGNESIUM 2020-08-15 03:27:00 Juno Jackson [facility] PHOSPHORUS 2020-08-15 03:27:00 [facility] CALCIUM, IONIZED 2020-08-15 03:27:00 Ukdarvin, Faustino [facility] BLOOD GAS, ARTERIAL 2020-08-15 03:27:00 Ukdarvin, Faustino [facility] LACTIC ACID, ARTERIAL 2020-08-15 03:27:00 Uk, Faustino Rainey I [facility] OXYGEN SATURATION, MEASURED 2020-08-15 03:27:00 Faustino Shin [facility] XR CHEST 1 VIEW 2020-08-15 02:51:00 Aleida, [facility]EDSIDE [facility] Center BLOOD GAS, ARTERIAL 2020-08-15 00:10:00 [place], Faustino Rainey [facility] LACTIC ACID, ARTERIAL 2020-08-15 00:10:00 [place], Faustino Rainey [facility] BLOOD GAS, ARTERIAL 2020-08-14 22:33:00 [place], Faustino [facility] LACTIC ACID, ARTERIAL 2020-08-14 22:33:00 [place], Faustino Rainey CH I [facility] LACTIC ACID, ARTERIAL 2020-08-14 21:16:00 [place], Faustino Rainey I [facility] CALCIUM, IONIZED 2020-08-14 21:16:00 Faustino [facility] BLOOD GAS, ARTERIAL 2020-08-14 20:26:00 Faustino Shin [facility] PHOSPHORUS 2020-08-14 20:19:00 Velasquez Díazmariam Tay [facility] CBC W/PLT COUNT & AUTO 2020-08-14 20:19:00 Bre Francisco [facility] HEPATIC FUNCTION PANEL 2020-08-14 20:19:[address] [facility] BASIC METABOLIC PANEL (7) 2020-08-14 20:19:00 [facility] MAGNESIUM 2020-08-14 20:19:00 [facility] (CELLAVISION MANUAL DIFF) 2020-08-14 20:19:00 Velasquez Díazmariam kennedy [facility] XR CHEST 1 VIEW 2020-08-14 18:28:00 Mary Childers [facility] PORTABLE/BEDSIDE [facility] XR CHEST 1 VIEW 2020-08-14 18:23:00 Mary Childers [facility] PORTABLE/BEDSIDE [facility] XR CHEST 1 VIEW 2020-08-14 18:18:00 [facility] MAGNESIUM 2020-08-14 18:09:00 David Díazaham [facility] BLOOD GAS, ARTERIAL 2020-08-14 18:09:00 [facility] CALCIUM, IONIZED 2020-08-14 18:09:00 [facility] OXYGEN SATURATION, MEASURED 2020-08-14 18:09:00 [facility] CBC (HEMOGRAM ONLY) 2020-08-14 18:09:00 Jose [facility] COMPREHENSIVE METABOLIC PANEL 2020-08-14 18:09:00 Jose [facility] PHOSPHORUS 2020-08-14 18:09:00 [facility] LACTIC ACID, ARTERIAL 2020-08-14 18:09:00 [facility], [facility] SODIUM NA-STAT LAB 2020-08-14 18:09:00 [facility], [facility] POTASSIUM-STAT LAB 2020-08-14 18:09:00 [facility], [facility] GLUCOSE-STAT LAB 2020-08-14 18:09:00 [facility], [facility] HGB/HCT (H&H) - STAT LAB 2020-08-14 18:09:00 [facility] PROTHROMBIN TIME/INR 2020-08-14 18:08:00 Mark, [facility] APTT 2020-08-14 18:08:00 [facility] FIBRINOGEN 2020-08-14 18:08:00 [facility] PREPARE RBC 2020-08-14 18:02:00 Mark, [facility] THROMBOELASTOGRAPH (TEG) 2020-08-14 16:29:09 Victor Manuel Arevalo [facility] POCT-ACT 2020-08-14 16:24:00 Ruthie Toledo [facility] BLOOD GAS, ARTERIAL 2020-08-14 16:16:49 [facility] CALCIUM, IONIZED 2020-08-14 16:16:49 [facility] PROT[facility]OMBIN TIME/INR 2020-08-14 16:16:49 Victor Manuel Arevalo [facility] APTT 2020-08-14 16:16:49 Victor Manuel Arevalo [facility] [facility] FIBRINOGEN 2020-08-14 16:16:49 Mickey, Victor Manuel [facility] PLATELET COUNT 2020-08-14 16:16:49 Mickey [facility] SODIUM NA-STAT LAB 2020-08-14 16:16:49 Mickey [facility] POTASSIUM-STAT LAB 2020-08-14 16:16:49 Mickey [facility] GLUCOSE-STAT LAB 2020-08-14 16:16:49 Mickey [facility] HGB/HCT (H&H) - STAT LAB 2020-08-14 16:16:49 Victor Manuel Arevalo [facility] POCT-ACT 2020-08-14 16:01:00 Ruthie Toledo [facility] BLOOD GAS, ARTERIAL 2020-08-14 15:58:32 Juno Jackson [facility] SODIUM NA-STAT LAB 2020-08-14 15:58:32 Mark [facility] POTASSIUM-STAT LAB 2020-08-14 15:58:32 Mark [facility] GLUCOSE-STAT LAB 2020-08-14 15:58:32 Mark [facility] HGB/HCT (H&H) - STAT LAB 2020-08-14 15:58:32 Mark [facility] POCT-ACT 2020-08-14 15:41:00 Ruthie Toledo [facility] BLOOD GAS, VENOUS 2020-08-14 15:38[facility] 2020-08-14 15:37:45 Juno Jackson [facility] SODIUM NA-STAT LAB 2020-08-14 15:37:45 Mark [facility] POTASSIUM-STAT LAB 2020-08-14 15:37:45 Mark [facility] GLUCOSE-STAT LAB 2020-08-14 15:37:45 Mark [facility] HGB/HCT (H&H) - STAT LAB 2020-08-14 15:37:[facility] 2020-08-14 15:22:00 Ruthie Toledo [facility] BLOOD GAS, ARTERIAL 2020-08-14 15:18:23 Juno Jackson [facility] SODIUM NA-STAT LAB 2020-08-14 15:18:23 [facility] 2020-08-14 15:18:23 Mark [facility] GLUCOSE-STAT LAB 2020-08-14 [facility]:18[facility] 2020-08-14 15:18:23 Mark [facility] POCT-ACT 2020-08-14 15:03:00 Ruthie Toledo [facility] BLOOD GAS, ARTERIAL 2020-08-14 14:53:20 Juno Jackson [facility] SODIUM NA-STAT LAB 2020-08-14 14:53:[facility] 2020-08-14 14:53:20 Mark [facility] GLUCOSE-STAT LAB 2020-08-14 14:53:[facility] 2020-08-14 14:53:[facility] 2020-08-14 14:41:00 Ruthie Toledo KathiaOvidio [facility] BLOOD GAS, ARTERIAL 2020-08-14 14:36:03 Juno Jackson [facility] SODIUM NA-STAT LAB 2020-08-14 14:36:03 [facility] 2020-08-14 14:36:03 Mark[facility] GLUCOSE-STAT LAB 2020-08-14 14:36:03 Mark, [facility] HGB/HCT (H&H) - STAT LAB 2020-08-14 14:36:03 Mark, [facility] POCT-ACT 2020-08-14 14:11:00 Ruthie Toledo [facility] ANESTHESIA NICA 2020-08-14 12:59:58 [facility] ARTERIAL 2020-08-14 12:53:12 In[facility] CALCIUM, IONIZED 2020-08-14 12:53:12 Inocente [facility] SODIUM NA-STAT LAB 2020-08-14 12:53:12 [facility] POTASSIUM-STAT LAB 2020-08-14 12:53:12 [facility] GLUCOSE-STAT LAB 2020-08-14 12:53:12 Inocente [facility] HGB/HCT (H&H) - STAT LAB 2020-08-14 12:53:12 Inocente [facility] BYPASS,AORTO CORONARY BHANU/SVG 2020-08-14 11:50:00 Mark [facility] ENDOSCOPIC HARVEST,VEIN 2020-08-14 11:50:00 Mrak, [facility] NICA,3D 2020-08-14 11:50:00 Mark, [facility] 2D ECHO W/ DOPPLER 2020-08-14 09:37:16 Ruthie Toledo [facility] (CW/PW/COLOR) [facility] ECG 12-LEAD 2020-08-14 09:27:02 Mark, Renard [facility] ABORH, MANUAL 2020-08-14 09:19:00 Britany Rand [facility] TYPE AND SCREEN, AUTOMATED 2020-08-14 09:10:00 Renard Flores [facility] L CATH & PCI 2020-08-14 07:05:00 Ruthie Toledo [facility] TSH/FREE T4 IF INDICATED 2020-08-14 06:47:00 Der Moran [facility] APTT 2020-08-14 05:43:00 [facility] COMPREHENSIVE METABOLIC PANEL 2020-08-14 04:39:00 [facility] CBC W/PLT COUNT & AUTO 2020-08-14 04:39:00 [facility] HIGH SENSITIVITY TROPONIN I 2020-08-14 04:39:00 Dre Moran [facility] MAGNESIUM 2020-08-14 04:39:00 [facility] PHOSPHORUS 2020-08-14 04:39:00 [facility] ECG 12-LEAD 2020-08-13 21:46:55 Dre Moran [facility] HIGH SENSITIVITY TROPONIN I 2020-08-13 21:46:00 Dre Moran [facility] COMPREHENSIVE METABOLIC PANEL 2020-08-13 21:46:00 Dre Moran [facility] CBC W/PLT COUNT & AUTO 2020-08-13 21:46:00 Dre Moran [facility] MAGNESIUM 2020-08-13 21:46:00 Dre Moran [facility] APTT 2020-08-13 21:46:00 Dre Moran [facility] B-TYPE NATRIURETIC FACTOR 2020-08-13 21:46:00 [facility] LIPID PANEL 2020-08-13 21:46:00 Dre Moran [facility] HEMOGLOBIN A1C 2020-08-13 21:46:00 Dre Moran [facility] XR CHEST 1 VIEW 2020-08-13 21:27:00 Dre Moran [facility] - PORT[facility] Medical Center VASCULAR DIAGRAM -SCAN 2020-08-13 00:00:00 [facility] CARDIAC CATH REPORT - SCAN 2020-08-13 00:00:00 Provider [facility] REPORT OF PROCEDURE - 2020-08-13 00:00:00 [facility] ENDOSCOPY SCAN [facility] Plan of Care Planned Activity Planned Date Details Comments Source Future Scheduled 2023-08-[address] [facility] 00:[facility]00 (procedure) [code = Medical Center [id number]] Future Scheduled 2020-11-[address] [facility] Test 00:00:00 (Season Ended) [code Medical Center = INFLUENZA VACCINE (Season Ended)] Future Scheduled 2020-10-25 INFLU[facility]ZA VACCINE [facility] 00:[facility]:00 [code = INFLUENZA VACCINE] Future Scheduled 2020-04-[address] 00:00:00 (WELCOME TO MEDICARE) [facility] [code = Medicare IPPE (WELCOME TO MEDICARE)] Future Scheduled 2008-01-16 COLONOSCOPY SCREENING [place] [facility] 00:00:00 [code = COLONOSCOPY SCREENING] Future Scheduled 2008-01-16 SHINGLES VACCINES [facility] 00:00:00 (#1) [code = SHINGLES VACCINES (#1)] Future Scheduled 2008-01-16 SHINGLES VACCINES ([address] [facility] - Test 00:00:00 of 2) [code = Medical Center SHINGLES VACCINES (1 of 2)] Future Scheduled 1977 DTAP/TDAP/TD VACCINES [facility] 00:[facility]:00 (1 - Tdap) [code = Medical C enter DTAP/TDAP/TD VACCINES (1 - Tdap)] Future Scheduled 1976-01-16 Hepatitis C screening [place] [facility] [facility] Test 00:00:00 (procedure) [code = 140396139] Future Scheduled 1976-01-16 HEPATITIS C SCREENING [facility] 00:[facility]:00 [code = HEPATITIS C Medical Center SCREENING] Future Scheduled 1970 COVID-19 VACCINE (1) [facility] Test 00:00:00 [code = COVID-19 VACCINE (1)] Future Scheduled 1970 COVID-19 [facility]ACCINE (1[facility]00 [code = COVID-[address] VACCINE (1)] Future Scheduled [address] [facility] Test 00:00:00 malignant neoplasm of Medica [facility] Center colon (procedure) [code = 711325885] Results Test Description Test Time Test Comments Results Result [facility] e Comments CARDIAC CATH 2020-08-25 Ordered by an [facility] REPORT - SCAN 11:48:50 unspecified - Medical provider. Center VASCULAR DIAGRAM 2020-08-25 Ordered by an [facility] -[facility]AN 11:48:49 unspecified - Medical provider. Center SARS-CoV2/RT-PCR (Asymptomatic ONLY) 2020-08-23 13:47:00 Test Item Value Reference Range Interpretation Comme nts SARS-COV2/RT-PCR (test code = Negative Not Detected, 23593-8) Negative, See external report for linked test SARS-COV-2 PERFORMING LAB [facility] ZACH (test code = 66899-5) CYNDEE (test code = CYNDEE) Negative result for this test determines that SARS-CoV-2 RNA was not present in the specimen above the Limit of Detection (LOD). However, Negative results do not preclude SARS-CoV-2 infection and should not be used as the sole basis for treatment or patient management decisions. Negative results must be combined with clinical observations, patient history, and epidemiological information. A false negative result may occur if a specimen is improperly collected, transported or handled. A false negative result should be considered if patient's recent exposures or clinical presentation indicate that COVID-19 (SARS-CoV-2) is likely and diagnostic tests for other causes of illness are negative. Re-testing should be considered in cases of suspected false negatives. The limit of detection for this assay is 100 copies/mL. This SARS CoV-2 test is a real-time RT-PCR test intended for the qualitative detection of nucleic acid from SARS-CoV-2 in a nasopharyngeal swab specimen collected from individuals suspected of COVID-19 by their healthcare provider. This test has not been Food and Drug Administration (FDA) cleared or approved. This is a modified version of an approved Emergency Use Authorization (EUA) and is in the process of review by the FDA. Once authorized by the FDA, the issued EUA will be effective until the declaration that circumstances exist justifying the authorization of the emergency use of in vitro diagnostic tests for detection and/or diagnosis of COVID-19 is terminated under Section 564(b)(2) of the Act or the EUA is revoked under Section 564(g) of the Act. Testing was performed using the Arm[employer] SARS-CoV-2 assay. Fact Sheet for Healthcare Providers:https://www.Boardganicschanell scott.armando/jim/UB_VBXD-OaT-0_X CP_Fact_Sheet_51-648405.pdf Fact Sheet for Healthcare Patients:https://www.Gramovox r.armando/jim/YP_FZNP-VrJ-4_Rp tient_Fact_Sheet_EN_51-585835 R3.pdf Performing Laboratory:[place] [address], [place] [address] [place], [place] [address]ARS-COV2/RT-PCR ([facility])2020-08-23 13:47:00 Test Item Value Reference Range Interpretation Comments SARS-COV2/RT-PCR (test Negative Not Detected, Negative, code = 0455295) See external report for linked test SARS-COV-2 PERFORMING LAB [facility] (test code = 9379776) Negative result for this test determines that SARS-CoV-2 RNA was not present in the specimen above the Limit of Detection (LOD). However, Negative results do not preclude SARS-CoV-2 infection and should not be used as the sole basis for treatment or patient management decisions. Negative results mustbe combined with clinical observations, patient history, and epidemiological information. A false negative result may occur if a specimen is improperly collected, transported or handled. A false negative result should be considered if patient's recent exposures or clinical presentation indicate that COVID-19 (SARS-CoV-2) is likely and diagnostic tests for other causes of illness are negative. Re-testing should be considered in cases of suspected false negatives.The limit of detection for this assay is 100 copies/mL.This SARS CoV-2 test is a real-time RT-PCR test intended for the qualitative detection of nucleic acid from SARS-CoV-2 in a nasopharyngeal swab specimen collected from individuals susp ected of COVID-19 by their healthcare provider.This test has not been Food and Drug Administration (FDA) cleared or approved. This is a modified version of an approved Emergency Use Authorization (EUA) and is in the process of review by the FDA. Once authorized by the FDA, the issued EUA will be effective until the declaration that circumstances exist justifying the authorization of the emergency use of in vitro diagnostic tests for detection and/or diagnosis of COVID-19 is terminated under Section 564(b)(2) of the Act or the EUA is revoked under Section 564(g) of the Act.Testing was performed using the Armando SARS-CoV-2 assay.Fact Sheet for Healthcare Providers:https://www.Gearworks.armando/jim/ YZ_HLHO-JkJ-4_LVK_Cmah_Uehut_23-116527.pdfFact Sheet for Healthcare Patients:https://www.Gearworks.[employer] marita/jim/JZ_FHIF-FsC-6_Vijwfqd_Wztk_Kvgrq_QE_76-110356B4.pdfPerforming Laboratory:[facility] [place] [address].[place] [address] Comprehensive metabolic [id number] 02:17:00 Test Item Value Reference Range Interpretation Comments Protein, Total (test 5.3 See_Comment L [Autom ated code = 2885-2) message] The system which generated this result transmitted reference range : 6.0 - 8.3 gm/dL . The reference range was not used to interpr et this result as normal/abnormal . Albumin (test code = 2.8 g/dL 3.5-5 L 23682-8) Alkaline Phosphatase 54 U/L 40-150 (test code = 6768-6) Total Bilirubin (test 2.5 mg/dL 0.2-1.2 H code = 1975-2) Sodium (test code = 136 meq/L 507-131 3508-2) Potassium (test code 3.4 meq/L 3.5-5.1 L = 2823-3) Chloride (test code = 98 meq/L 98-107 2074-0) CO2 (test code = 29 meq/L -29 2027-9) BUN (test code = 11 mg/dL 7-21 3094-0) Creatinine (test code 0.88 mg/dL 0.57-1.25 = 2160-0) Glucose (test code = 114 mg/dL 70-105 H 2345-7) Calcium (test code = 7.8 mg/dL 8.4-10.2 L 28692-3) AST (test code = 48 U/L 5-34 H 1920-8) ALT (test code = 83 U/L 6-55 H 1742-6) EGFR (test code = 88 mL/min/1.73 [place] [address]-2) NOT ACCURATE CREATININE CLEARANCE IN PREDICTING GLOMERULAR FILTRATION RATE . ESTIMATED GFR I S NOT APPLICABLE FOR DIALYSIS PATIENTS. CYNDEE (test code = CYNDEE) Digital Content Specialist ID - HANNA ERNANDEZpecimezena slightly icteric Lab Interpretation Abnormal (test code = 61762-0) [facility] [id number] 02:17:00 Test Item Value Reference Range Interpretation Comments TOTAL PROTEIN 5.3 gm/dL 6.0-8.3 L (BEAKER) (test code = 770) ALBUMIN (BEAKER) 2.8 g/dL 3.5-5.0 L (test code = 1145) ALKALINE PHOSPHATASE 54 U/L 40-150 (BEAKER) (test code = 346) BILIRUBIN TOTAL 2.5 mg/dL 0.2-1.2 H (BEAKER) (test code = 377) SODIUM (BEAKER) (test 136 meq/L 136-145 code = 381) POTASSIUM (BEAKER) 3.4 meq/L 3.5-5.1 L (test code = 379) CHLORIDE (BEAKER) 98 meq/L 98-107 (test code = 382) CO2 (BEAKER) (test 29 meq/L - code = 355) BLOOD UREA NITROGEN 11 mg/dL 7-21 (BEAKER) (test code = 354) CREATININE (BEAKER) 0.88 mg/dL 0.57-1.25 (test code = 358) GLUCOSE RANDOM 114 mg/dL 70-105 H (BEAKER) (test code = 652) CALCIUM (BEAKER) 7.8 mg/dL 8.4-10.2 L (test code = 697) AST (SGOT) (BEAKER) 48 U/L 5-34 H (test code = 353) ALT (SGPT) (BEAKER) 83 U/L 6-55 H (test code = 347) EGFR (BEAKER) (test 88 mL/min/1.73 ESTIMA SONIA GFR IS code = 1092) sq m NOT ACCURATE CREATININE CLEARANCE IN PREDICTING GLOMERULAR FILTRATION RATE . ESTIMATED GFR I S NOT APPLICABLE FOR DIALYSIS PATIEN TS. Digital Content Specialist ID - HANNA WSpecimen slightly [id number] 02:14:00 Test Item Value Reference Range Interpretation Comments Magnesium (test code = 1.9 mg/dL 1.6-2.6 18204-8) CYNDEE (test code = CYNDEE) Digital Content Specialist ID - HANNA W Lab Interpretation (test Normal code = 47955-8) [facility] 02:14:00 Test Item Value Reference Range Interpretation Comments Phosphorus (test code = 3.8 mg/dL 2.3-4.7 2777-1) CYNDEE (test code = CYNDEE) Digital Content Specialist ID - HANNA W Lab Interpretation (test Normal code = 36736-4) [facility]2021-[facility]-30 02:14:00 Test Item Value Reference Range Interpretation Comments MAGNESIUM (BEAKER) (test code = 1.9 mg/dL 1.6-2.6 627) Digital Content Specialist ID - HANNA [id number] 02:14:00 Test Item Value Reference Range Interpretation Comments PHOSPHORUS (BEAKER) (test code = 3.8 mg/dL 2.3-4.7 604) Digital Content Specialist ID Jana RubioVancomycin level, [id number] 02:10:00 Test Item Value Reference Range Interpretation Comments Vancomycin Tr (test code = 12.7 ug/mL 01-13 4092-3) CYNDEE (test code = CYNDEE) Digital Content Specialist ID - HANNA W Lab Interpretation (test Normal code = 51582-3) [facility] HospitalVANCOMYCIN LEVEL, [id number] 02:10:00 Test Item Value Reference Range Interpretation Comments VANCOMYCIN TROUGH (BEAKER) (test 12.7 ug/mL 10.0-20.0 code = 522) Digital Content Specialist ID - HANNA WCBC with platelet count + automated [id number] 02:02:00 Test Item Value Reference Range Interpretation Comments WBC (test code = 6690-2) 13.2 See_Comment H [A utomated message] The system ImpulseSave generated this result transmitted ref erence range: 3.5 - 10 .5 K/L. The refe rence range was not u sed to interpret this result as normal/abnor mal. RBC (test code = 789-8) 3.18 See_Comment L [Au tomated message] The system [employer]ulseSave generated this result transmitted ref erence range: 4.63 - 6 .08 M/L. The refe rence range was not u sed to interpret this result as normal/abnor mal. MCHC (test code = 786-4) 33.7 See_Comment L [A utomated message] The system [employer]ulseSave generated this result transmitted ref erence range: 32.3 - 3 6.5 GM/DL. The refe rence range was not u sed to interpret this result as normal/abnor mal. Hematocrit (test code = 30.0 % 40.1-51 L 4544-3) MCV (test code = 787-2) 94.3 fL 79-92.2 H MCH (test code = 785-6) 31.8 pg 25.7-32.2 RDW (test code = 788-0) 15.4 % 11.6-14.4 H Platelets (test code = 242 See_Comment [Aut omated message] 777-3) The system [employer]ulseSave generated this result transmitted ref erence range: 150 - 45 0 K/CU MM. The referen ce range was not u sed to interpret this result as normal/abnor mal. MPV (test code = 9.4 fL 9.4-12.4 86442-3) nRBC (test code = 413) 0 See_Comment [Aut omated message] The system [employer]ulseSave generated this result transmitted ref erence range: 0 - 0 /1 00 WBC. The refere nce range was not u sed to interpret this result as normal/abnor mal. % Neutros (test code = 69 % 429) % Lymphs (test code = 18 % 430) % Monos (test code = 8 % 431) % Eos (test code = 432) 3 % % Baso (test code = 437) 0 % # Neutros (test code = 9.02 See_Comment H [Aut omated message] 670) The system [employer]ulseSave generated this result transmitted ref erence range: 1.78 - 5 .38 K/L. The refe rence range was not u sed to interpret this result as normal/abnor mal. # Lymphs (test code = 2.41 See_Comment [Auto mated message] 414) The system [employer]ulseSave generated this result transmitted ref erence range: 1.32 - 3 .57 K/L. The refe rence range was not u sed to interpret this result as normal/abnor mal. # Monos (test code = 1.08 See_Comment H [Autom ated message] 415) The system [employer]ulseSave generated this result transmitted ref erence range: 0.30 - 0 .82 K/L. The refe rence range was not u sed to interpret this result as normal/abnor mal. # Eos (test code = 416) 0.41 See_Comment [Au tomated message] The system [employer]ulseSave generated this result transmitted ref erence range: 0.04 - 0 .54 K/L. The refe rence range was not u sed to interpret this result as normal/abnor mal. # Baso (test code = 417) 0.04 See_Comment [A utomated message] The system ImpulseSave generated this result transmitted ref erence range: 0.01 - 0 .08 K/L. The refe rence range was not u sed to interpret this result as normal/abnor mal. Immature 1 % 0-1 Granulocytes-Relative (test code = 2801) Lab Interpretation (test Abnormal code = 94545-4) [facility] W/PLT COUNT & AUTO [id number] 02:02:00 Test Item Value Reference Range Interpretation Comments WHITE BLOOD CELL COUNT (BEAKER) 13.2 K/ L 3.5-10.5 H (test code = 775) RED BLOOD CELL COUNT (BEAKER) 3.18 M/ L 4.63-6.08 L (test code = 761) HEMOGLOBIN (BEAKER) (test code = 10.1 GM/DL 13.7-17.5 L 410) HEMATOCRIT (BEAKER) (test code = 30.0 % 40.1-51.0 L 411) MEAN CORPUSCULAR VOLUME (BEAKER) 94.3 fL 79.0-92.2 H (test code = 753) MEAN CORPUSCULAR HEMOGLOBIN 31.8 pg 25.7-32.2 (BEAKER) (test code = 751) MEAN CORPUSCULAR HEMOGLOBIN CONC 33.7 GM/DL 32.3-36.5 (BEAKER) (test code = 752) RED CELL DISTRIBUTION WIDTH 15.4 % 11.6-14.4 H (BEAKER) (test code = 412) PLATELET COUNT (BEAKER) (test 242 K/CU MM 150-450 code = 756) MEAN PLATELET VOLUME (BEAKER) 9.4 fL 9.4-12.4 (test code = 754) NUCLEATED RED BLOOD CELLS 0 /100 WBC 0-0 (BEAKER) (test code = 413) NEUTROPHILS RELATIVE PERCENT 69 % (BEAKER) (test code = 429) LYMPHOCYTES RELATIVE PERCENT 18 % (BEAKER) (test code = 430) MONOCYTES RELATIVE PERCENT 8 % (BEAKER) (test code = 431) EOSINOPHILS RELATIVE PERCENT 3 % (BEAKER) (test code = 432) BASOPHILS RELATIVE PERCENT 0 % (BEAKER) (test code = 437) NEUTROPHILS ABSOLUTE COUNT 9.02 K/ L 1.78-5.38 H (BEAKER) (test code = 670) LYMPHOCYTES ABSOLUTE COUNT 2.41 K/ L 1.32-3.57 (BEAKER) (test code = 414) MONOCYTES ABSOLUTE COUNT (BEAKER) 1.08 K/ L 0.30-0.82 H (test code = 415) EOSINOPHILS ABSOLUTE COUNT 0.41 K/ L 0.04-0.54 (BEAKER) (test code = 416) BASOPHILS ABSOLUTE COUNT (BEAKER) 0.04 K/ L 0.01-0.08 (test code = 417) IMMATURE GRANULOCYTES-RELATIVE 1 % 0-1 PERCENT (BEAKER) (test code = 2801) Venous doppler leg, [id number] 11:50:14Ejection FractionSLEH ECHO HEARTLAB MKCKESSON CPACS Left Impression1. There is no deep venous obstruction in the common femoral, profundafemoral, femoral, popliteal, posterior tibial or peroneal veins.2. There is no superficial venous obstruction in the great saphenous vein. Conclusions Summary Venous duplex imaging and compression of the left lower extremity were performed. The veins were adequately visualized. The left venous system was patent and compressible with no evidence of thrombus. The venous Doppler waveforms were phasic with respiration . Signature Velocities are measured in cm/s ; Diameters are measured in cm Interface, External Ris In - 08/22/2020 11:50 AM CDTPV LAB - Lower Extremities DVT Study Demographics Patient Name PACO MONTOYA Date of Study 08/21/2020 Age 60 Visit Number [id number] Gender Male Accession Number [id number] Date of 1960 Referring Wilfrido Ying Room Number 1119 Physician Haunted [employer] Tour Guide Sanjay Carreon Interpreting Theresa Hernandez RVT Physician ProcedureType of Study: Veins: Lower Extremities DVT Study, VENOUS DOPPLER LEG, LEFT. Indica tions for Study:Swelling.Patient Status:STAT.Study Location:Portable.Technical Quality:Adequate visualization.Risk FactorsHistory of Disease+---------+----+ +!Diagnosis!Date!Comments !+---------+ ----+ +!Other ! !CABG, Obesity, LeftGreater Saphenous Harvested !+---------+----+ +ImpressionsLeft Impression1. There is no deep venous obstruction in the common femoral, profundafemoral, femoral, popliteal, posterior tibial or peroneal veins.2. There is no superficialvenous obstruction in the great saphenous vein. Conclusions Summary Venous duplex imaging and compression of the left lower extremity were performed. The veins were adequately visualized. The left venous system was patent and compressible with no evidence of thrombus. The venous Doppler waveforms were phasic with respiration . Signature Velocities are measured in cm/s ; Diameters are measured in [facility] [id number] 06:24:00 Test Item Value Reference Range Interpretation Comments MAGNESIUM (BEAKER) 2.0 mg/dL 1.6-2.6 Specimen slightly (test code = 627) hemolyzed Digital Content Specialist ID - LUIS DANIEL [id number] 06:24:00 Test Item Value Reference Range Interpretation Comments PHOSPHORUS (BEAKER) 2.7 mg/dL 2.3-4.7 Specimen slightly (test code = 604) hemolyzed Digital Content Specialist ID - LUIS DANIEL MCOMPREHENSIVE METABOLIC [id number] 06:24:00 Test Item Value Reference Range Interpretation Comments TOTAL PROTEIN 5.2 gm/dL 6.0-8.3 L Specimen sligh tly (BEAKER) (test code = hemoly zed 770) ALBUMIN (BEAKER) 2.7 g/dL 3.5-5.0 L Specimen sl ightly (test code = 1145) hemolyzed ALKALINE PHOSPHATASE 56 U/L 40-150 (BEAKER) (test code = 346) BILIRUBIN TOTAL 2.3 mg/dL 0.2-1.2 H Specimen sli ghtly (BEAKER) (test code = hemoly zed 377) SODIUM (BEAKER) (test 138 meq/L 136-145 code = 381) POTASSIUM (BEAKER) 3.5 meq/L 3.5-5.1 Specimen slightly (test code = 379) hemolyzed CHLORIDE (BEAKER) 100 meq/L 98-107 (test code = 382) CO2 (BEAKER) (test 27 meq/L 22-29 code = 355) BLOOD UREA NITROGEN 12 mg/dL 7-21 (BEAKER) (test code = 354) CREATININE (BEAKER) 0.82 mg/dL 0.57-1.25 Specimen slightly (test code = 358) hemolyzed GLUCOSE RANDOM 147 mg/dL 70-105 H (BEAKER) (test code = 652) CALCIUM (BEAKER) 7.6 mg/dL 8.4-10.2 L (test code = 697) AST (SGOT) (BEAKER) 54 U/L 5-34 H Specimen slightly (test code = 353) hemolyzed ALT (SGPT) (BEAKER) 110 U/L 6-55 H Specimen slightly (test code = 347) hemolyzed EGFR (BEAKER) (test 95 mL/min/1.73 ESTIMA SONIA GFR IS code = 1092) sq m NOT ACCURATE CREATININE CLEARANCE IN PREDICTING GLOMERULAR FILTRATION RATE . ESTIMATED GFR I S NOT APPLICABLE FOR DIALYSIS PATIEN TS. Digital Content Specialist ID - LUIS DANIEL MSpecimen slightly ictericCBC W/PLT COUNT & AUTO [id number] 05:48:00 Test Item Value Reference Range Interpretation Comments WHITE BLOOD CELL COUNT (BEAKER) 13.3 K/ L 3.5-10.5 H (test code = 775) RED BLOOD CELL COUNT (BEAKER) 3.12 M/ L 4.63-6.08 L (test code = 761) HEMOGLOBIN (BEAKER) (test code = 9.8 GM/DL 13.7-17.5 L 410) HEMATOCRIT (BEAKER) (test code = 29.9 % 40.1-51.0 L 411) MEAN CORPUSCULAR VOLUME (BEAKER) 95.8 fL 79.0-92.2 H (test code = 753) MEAN CORPUSCULAR HEMOGLOBIN 31.4 pg 25.7-32.2 (BEAKER) (test code = 751) MEAN CORPUSCULAR HEMOGLOBIN CONC 32.8 GM/DL 32.3-36.5 (BEAKER) (test code = 752) RED CELL DISTRIBUTION WIDTH 15.2 % 11.6-14.4 H (BEAKER) (test code = 412) PLATELET COUNT (BEAKER) (test 233 K/CU MM 150-450 code = 756) MEAN PLATELET VOLUME (BEAKER) 10.0 fL 9.4-12.4 (test code = 754) NUCLEATED RED BLOOD CELLS 0 /100 WBC 0-0 (BEAKER) (test code = 413) NEUTROPHILS RELATIVE PERCENT 74 % (BEAKER) (test code = 429) LYMPHOCYTES RELATIVE PERCENT 14 % (BEAKER) (test code = 430) MONOCYTES RELATIVE PERCENT 8 % (BEAKER) (test code = 431) EOSINOPHILS RELATIVE PERCENT 2 % (BEAKER) (test code = 432) BASOPHILS RELATIVE PERCENT 0 % (BEAKER) (test code = 437) NEUTROPHILS ABSOLUTE COUNT 9.79 K/ L 1.78-5.38 H (BEAKER) (test code = 670) LYMPHOCYTES ABSOLUTE COUNT 1.86 K/ L 1.32-3.57 (BEAKER) (test code = 414) MONOCYTES ABSOLUTE COUNT (BEAKER) 1.11 K/ L 0.30-0.82 H (test code = 415) EOSINOPHILS ABSOLUTE COUNT 0.23 K/ L 0.04-0.54 (BEAKER) (test code = 416) BASOPHILS ABSOLUTE COUNT (BEAKER) 0.04 K/ L 0.01-0.08 (test code = 417) IMMATURE GRANULOCYTES-RELATIVE 2 % 0-1 H PERCENT (BEAKER) (test code = 2801) ECG 12 [id number] 18:11:05Interface, External Ris In - 08/21/2020 6:11 PM CDTVentricular Rate 136 BPMAtrial Rate 122 BPMQRS Duration 94 msQ-T Interval 334 msQTC Calculation(Bazett) 502 msR [place] -47 degreesT [place] 76 degreesAtrial fibrillation with rapid ventricular responseLow voltage QRSLeft anterior fascicular blockCannot rule out Anteroseptal infarct (cited on or before 13-AUG-2020)Abnormal ECGWhen compared with ECG of 14-AUG-2020 09:27,Atrial fibrillation has replaced Sinus rhythmVent. rate has increased BY 47 BPMConfirm ed by MD Coyne Roberto ([id number]) on 08/21/2020 6:10:59 [facility] [id number] 05:24:00 Test Item Value Reference Range Interpretation Comments TOTAL PROTEIN 5.6 gm/dL 6.0-8.3 L Specimen sligh tly (BEAKER) (test code = hemoly zed 770) ALBUMIN (BEAKER) 3.0 g/dL 3.5-5.0 L Specimen sl ightly (test code = 1145) hemolyzed ALKALINE PHOSPHATASE 67 U/L 40-150 (BEAKER) (test code = 346) BILIRUBIN TOTAL 3.4 mg/dL 0.2-1.2 H Specimen sli ghtly (BEAKER) (test code = hemoly zed 377) SODIUM (BEAKER) (test 137 meq/L 136-145 code = 381) POTASSIUM (BEAKER) 3.7 meq/L 3.5-5.1 Specimen slightly (test code = 379) hemolyzed CHLORIDE (BEAKER) 98 meq/L 98-107 (test code = 382) CO2 (BEAKER) (test 30 meq/L 22-29 H code = 355) BLOOD UREA NITROGEN 12 mg/dL 7-21 (BEAKER) (test code = 354) CREATININE (BEAKER) 0.90 mg/dL 0.57-1.25 Specimen slightly (test code = 358) hemolyzed GLUCOSE RANDOM 122 mg/dL 70-105 H (BEAKER) (test code = 652) CALCIUM (BEAKER) 7.7 mg/dL 8.4-10.2 L (test code = 697) AST (SGOT) (BEAKER) 73 U/L 5-34 H Specimen slightly (test code = 353) hemolyzed ALT (SGPT) (BEAKER) 159 U/L 6-55 H Specimen slightly (test code = 347) hemolyzed EGFR (BEAKER) (test 86 mL/min/1.73 ESTIMA SONIA GFR IS code = 1092) sq m NOT ACCURATE CREATININE CLEARANCE IN PREDICTING GLOMERULAR FILTRATION RATE . ESTIMATED GFR I S NOT APPLICABLE FOR DIALYSIS PATIEN TS. Digital Content Specialist ID - LMSpecimen moderately [id number] 05:23:00 Test Item Value Reference Range Interpretation Comments MAGNESIUM (BEAKER) 2.1 mg/dL 1.6-2.6 Specimen slightly (test code = 627) hemolyzed Digital Content Specialist ID - [id number] 05:23:00 Test Item Value Reference Range Interpretation Comments PHOSPHORUS (BEAKER) 2.6 mg/dL 2.3-4.7 Specimen slightly (test code = 604) hemolyzed Digital Content Specialist ID - LMCBC W/PLT COUNT & AUTO [id number] 04:24:00 Test Item Value Reference Range Interpretation Comments WHITE BLOOD CELL COUNT (BEAKER) 14.2 K/ L 3.5-10.5 H (test code = 775) RED BLOOD CELL COUNT (BEAKER) 3.38 M/ L 4.63-6.08 L (test code = 761) HEMOGLOBIN (BEAKER) (test code = 10.7 GM/DL 13.7-17.5 L 410) HEMATOCRIT (BEAKER) (test code = 32.1 % 40.1-51.0 L 411) MEAN CORPUSCULAR VOLUME (BEAKER) 95.0 fL 79.0-92.2 H (test code = 753) MEAN CORPUSCULAR HEMOGLOBIN 31.7 pg 25.7-32.2 (BEAKER) (test code = 751) MEAN CORPUSCULAR HEMOGLOBIN CONC 33.3 GM/DL 32.3-36.5 (BEAKER) (test code = 752) RED CELL DISTRIBUTION WIDTH 15.3 % 11.6-14.4 H (BEAKER) (test code = 412) PLATELET COUNT (BEAKER) (test 214 K/CU MM 150-450 code = 756) MEAN PLATELET VOLUME (BEAKER) 10.5 fL 9.4-12.4 (test code = 754) NUCLEATED RED BLOOD CELLS 1 /100 WBC 0-0 H (BEAKER) (test code = 413) NEUTROPHILS RELATIVE PERCENT 66 % (BEAKER) (test code = 429) LYMPHOCYTES RELATIVE PERCENT 19 % (BEAKER) (test code = 430) MONOCYTES RELATIVE PERCENT 10 % (BEAKER) (test code = 431) EOSINOPHILS RELATIVE PERCENT 2 % (BEAKER) (test code = 432) BASOPHILS RELATIVE PERCENT 0 % (BEAKER) (test code = 437) NEUTROPHILS ABSOLUTE COUNT 9.45 K/ L 1.78-5.38 H (BEAKER) (test code = 670) LYMPHOCYTES ABSOLUTE COUNT 2.64 K/ L 1.32-3.57 (BEAKER) (test code = 414) MONOCYTES ABSOLUTE COUNT (BEAKER) 1.35 K/ L 0.30-0.82 H (test code = 415) EOSINOPHILS ABSOLUTE COUNT 0.26 K/ L 0.04-0.54 (BEAKER) (test code = 416) BASOPHILS ABSOLUTE COUNT (BEAKER) 0.04 K/ L 0.01-0.08 (test code = 417) IMMATURE GRANULOCYTES-RELATIVE 3 % 0-1 H PERCENT (BEAKER) (test code = 2801) Calcium, [id number] 04:15:00 Test Item Value Reference Range Interpretation Comments Calcium, Ion (test code = 1993-) 1.01 mmol/L 1.12-1.27 L pH, Blood (test code = 40668-3) 7.45 Lab Interpretation (test code = Abnormal 57477-5) [facility], [id number] 04:15:00 Test Item Value Reference Range Interpretation Comments CALCIUM IONIZED (BEAKER) (test 1.01 mmol/L 1.12-1.27 L code = 698) PH, BLOOD (BEAKER) (test code = 7.45 1810) Oxygen saturation, [id number] 04:13:00 Test Item Value Reference Range Interpretation Comments O2 Saturation (Measured) (test code = 58.3 % 97220-0) [facility] HospitalOXYGEN SATURATION, [id number] 04:13:00 Test Item Value Reference Range Interpretation Comments O2 SATURATION (MEASURED) (BEAKER) 58.3 % (test code = 1455) OXYGEN SATURATION, [id number] 12:51:00 Test Item Value Reference Range Interpretation Comments O2 SATURATION (MEASURED) (BEAKER) 59.7 % (test code = 1455) POC-Glucose [id number] 11:23:00 Test Item Value Reference Range Interpretation Comments POC-Glucose Meter (test 129 mg/dL 70-110 H : TE STED AT [facility] code = 1538) [address] [facility] [address]: Digital Content Specialist/Techni ena ID = [id number] for MYRANDA TENORIO ABE Lab Interpretation (test Abnormal code = 01362-5) [facility] HospitalPOCT-GLUCOSE [id number] 11:23:00 Test Item Value Reference Range Interpretation Comments POC-GLUCOSE METER 129 mg/dL 70-110 H : TESTED A T [facility] 67[address] (BEAKER) (test code = [facility], 1538) [address]: Digital Content Specialist/Techni ena ID = [id number] for STU RUIZ RAD, CHEST, 1 VIEW, NON [id number] 07:44:00Reason for exam:->Assess cardiopulmonary statusShould this be performed at the bedside?->Yes [facility] 1960 Sex: MFINAL REPORT RAD, CHEST, 1 VIEW, NON DEPT INDICATION: Assess cardiopulmonary status COMPARISON: Prior day's exam FINDINGS: Portable frontal view of the chest. IMPRESSION: Support Lines: [place] catheter has been removed. Right IJ sheath remains in place. Lungs and pleura: Persistent bibasilar subsegmental atelectasis. Small residual bilateral effusions. No pneumothorax.Heart and mediastinum: Stable contours. Stable surgical changes.Additional findings: None. Signed: JR Mccarthy Robert MDReport Verified Date/Time: 08/20/2020 07:44:24 Reading Location: [facility] Radiology Reading Room XR chest 1 view portable / [id number] 07:44:00 Interface, External Ris In - 08/20/2020 7:46 AM CDTFINAL REPORT RAD, CHEST, 1 VIEW, NON DEPT INDICATION: Assess cardiopulmonary status COMPARISON: Prior day's exam FINDINGS: Portable frontal view of the chest. IMPRESSION: Support Lines: [place] catheter has been removed. Right IJ sheath remains in place. Lungs and pleura: Persistent bibasilar subsegmental atelectasis. Small residual bilateral effusions. No pneumothorax.Heart and mediastinum: Stable contours. Stable surgical changes.Additional findings: None. Signed: JR Mccarthy Robert MDReport Verified Date/Time:08/20/2020 07:44:24 Reading Location: [facility] Radiology Reading Room [facility] POCT-GLUCOSE [id number] 07:39:00 Test Item Value Reference Range Interpretation Comments POC-GLUCOSE METER 151 mg/dL 70-110 H : TESTED A T [facility] 6720 (BERNIE) (test code = [facility] [place], 1538) [address]: Digital Content Specialist/Techni ena ID = [id number] for RAS MONTES DE OCA Digoxin [id number] 06:47:00 Test Item Value Reference Range Interpretation Comments Digoxin Lvl (test code = 1.47 ng/mL 0.8-2 08168-0) CYNDEE (test code = CYNDEE) Digital Content Specialist ID - EDASI Lab Interpretation (test Normal code = 45401-9) [facility] HospitalDIG[facility] [id number] 06:47:00 Test Item Value Reference Range Interpretation Comments DIGOXIN LEVEL (BEAKER) (test code 1.47 ng/mL 0.80-2.00 = 669) Digital Content Specialist ID - EDASICOMPREHENSIVE METABOLIC [id number] 04:51:00 Test Item Value Reference Range Interpretation Comments TOTAL PROTEIN 4.9 gm/dL 6.0-8.3 L (BEAKER) (test code = 770) ALBUMIN (BEAKER) 2.7 g/dL 3.5-5.0 L (test code = 1145) ALKALINE PHOSPHATASE 62 U/L 40-150 (BEAKER) (test code = 346) BILIRUBIN TOTAL 3.1 mg/dL 0.2-1.2 H (BEAKER) (test code = 377) SODIUM (BEAKER) (test 137 meq/L 136-145 code = 381) POTASSIUM (BEAKER) 3.5 meq/L 3.5-5.1 (test code = 379) CHLORIDE (BEAKER) 97 meq/L 98-107 L (test code = 382) CO2 (BEAKER) (test 31 meq/L 22-29 H code = 355) BLOOD UREA NITROGEN 14 mg/dL 7-21 (BEAKER) (test code = 354) CREATININE (BEAKER) 0.90 mg/dL 0.57-1.25 (test code = 358) GLUCOSE RANDOM 124 mg/dL 70-105 H (BEAKER) (test code = 652) CALCIUM (BEAKER) 7.0 mg/dL 8.4-10.2 L (test code = 697) AST (SGOT) (BEAKER) 117 U/L 5-34 H (test code = 353) ALT (SGPT) (BEAKER) 222 U/L 6-55 H (test code = 347) EGFR (BEAKER) (test 86 mL/min/1.73 ESTIMA SONIA GFR IS code = 1092) sq m NOT ACCURATE CREATININE CLEARANCE IN PREDICTING GLOMERULAR FILTRATION RATE . ESTIMATED GFR I S NOT APPLICABLE FOR DIALYSIS PATIEN TS. Digital Content Specialist ID - EDASISpecimen slightly [id number] 04:47:00 Test Item Value Reference Range Interpretation Comments MAGNESIUM (BEAKER) (test code = 2.1 mg/dL 1.6-2.6 627) Digital Content Specialist ID - [id number] 04:47:00 Test Item Value Reference Range Interpretation Comments PHOSPHORUS (BEAKER) (test code = 2.4 mg/dL 2.3-4.7 604) Digital Content Specialist ID - EDASICALCIUM, [id number] 04:42:00 Test Item Value Reference Range Interpretation Comments CALCIUM IONIZED (BEAKER) (test 0.95 mmol/L 1.12-1.27 L code = 698) PH, BLOOD (BEAKER) (test code = 7.46 1810) OXYGEN SATURATION, [id number] 04:41:00 Test Item Value Reference Range Interpretation Comments O2 SATURATION (MEASURED) (BEAKER) 62.7 % (test code = 1455) CBC W/PLT COUNT & AUTO [id number] 04:26:00 Test Item Value Reference Range Interpretation Comments WHITE BLOOD CELL COUNT 14.1 K/ L 3.5-10.5 H (BEAKER) (test code = 775) RED BLOOD CELL COUNT 3.08 M/ L 4.63-6.08 L (BEAKER) (test code = 761) HEMOGLOBIN (BEAKER) 9.7 GM/DL 13.7-17.5 L (test code = 410) HEMATOCRIT (BEAKER) 28.9 % 40.1-51.0 L (test code = 411) MEAN CORPUSCULAR 93.8 fL 79.0-92.2 H VOLUME (BEAKER) (test code = 753) MEAN CORPUSCULAR 31.5 pg 25.7-32.2 HEMOGLOBIN (BEAKER) (test code = 751) MEAN CORPUSCULAR 33.6 GM/DL 32.3-36.5 HEMOGLOBIN CONC (BEAKER) (test code = 752) RED CELL DISTRIBUTION 14.8 % 11.6-14.4 H WIDTH (BEAKER) (test code = 412) PLATELET COUNT 155 K/CU MM 150-[address] T (BEAKER) (test code = RESULT COMPARED TO 756) PREVIOUS RESULT ; CLINICAL CORREL ATION REQUIRED. MEAN PLATELET VOLUME 10.4 fL 9.4-12.4 (BEAKER) (test code = 754) NUCLEATED RED BLOOD 2 /100 WBC 0-0 H CELLS (BEAKER) (test code = 413) NEUTROPHILS RELATIVE 68 % PERCENT (BEAKER) (test code = 429) LYMPHOCYTES RELATIVE 15 % PERCENT (BEAKER) (test code = 430) MONOCYTES RELATIVE 10 % PERCENT (BEAKER) (test code = 431) EOSINOPHILS RELATIVE 2 % PERCENT (BEAKER) (test code = 432) BASOPHILS RELATIVE 0 % PERCENT (BEAKER) (test code = 437) NEUTROPHILS ABSOLUTE 9.55 K/ L 1.78-5.38 H COUNT (BEAKER) (test code = 670) LYMPHOCYTES ABSOLUTE 2.07 K/ L 1.32-3.57 COUNT (BEAKER) (test code = 414) MONOCYTES ABSOLUTE 1.44 K/ L 0.30-0.82 H COUNT (BEAKER) (test code = 415) EOSINOPHILS ABSOLUTE 0.24 K/ L 0.04-0.54 COUNT (BEAKER) (test code = 416) BASOPHILS ABSOLUTE 0.06 K/ L 0.01-0.08 COUNT (BEAKER) (test code = 417) IMMATURE 5 % 0-1 H GRANULOCYTES-RELATIVE PERCENT (BEAKER) (test code = 2801) OXYGEN SATURATION, [id number] 23:24:00 Test Item Value Reference Range Interpretation Comments O2 SATURATION (MEASURED) (BEAKER) 69.7 % (test code = 1455) [id number] 17:46:00 Test Item Value Reference Range Interpretation Comments Potassium (test code = 3.3 meq/L 3.5-5.1 L 2823-3) CYNDEE (test code = CYNDEE) Digital Content Specialist ID - BS Lab Interpretation (test Abnormal code = 02873-0) [facility] [id number] 17:46:00 Test Item Value Reference Range Interpretation Comments MAGNESIUM (BEAKER) (test code = 2.0 mg/dL 1.6-2.6 627) Digital Content Specialist ID - [id number] 17:46:00 Test Item Value Reference Range Interpretation Comments PHOSPHORUS (BEAKER) (test code = 2.2 mg/dL 2.3-4.7 L 604) Digital Content Specialist ID - [id number] 17:46:00 Test Item Value Reference Range Interpretation Comments POTASSIUM (BEAKER) (test code = 3.3 meq/L 3.5-5.1 L 379) Digital Content Specialist ID - BSOXYGEN SATURATION, [id number] 17:06:00 Test Item Value Reference Range Interpretation Comments O2 SATURATION (MEASURED) (BEAKER) 55.6 % (test code = 1455) OXYGEN SATURATION, [id number] 11:49:00 Test Item Value Reference Range Interpretation Comments O2 SATURATION (MEASURED) (BEAKER) 44.2 % (test code = 1455) 2D Echo W/Doppler(CW/PW/Color)2020-08-19 10:10:46Ejection FractionSLEH ECHO HEARTLAB MKCKESSON CPACSInterface, External Ris In - 08/19/2020 10:11 AM C DTTransthoracic Echocardiography Report (TTE) Demographics Patient Name PACO MONTOYA Date of Study 08/18/2020 Gender Male Visit Number [id number] Race Unknown Room Number C820 Number Date of 1960 Referring Physician Paige Hendricks MD Age 60 year(s) Haunted History Tour Guide Vernell Garcia, [facility] Interpreting Viviana Baptiste, Physician MD Fellow Brayan Galicia MD Procedure Type of Study TTE procedure:2DECHO W DOPPLER(CW/PW/COLOR) (STAT) Indications:Bleeding.Clinical HistoryHLD HTN08/14/20 L CATH/PCI/ACBHGB 8.6HCT 25.4 %Contrast Medium: Definity. Amount - 6 mlHeight: 68 inches Weight: 106.14 kg (234 lbs) BSA: 2.18 m^2 BMI: 35.58kg/m^2HR: 91 bpm BP: 155/75 mmHg Summary 1. Normal LV size. The following segments are akinetic: [place], mid toapical septum and anterior. All the other segments are mildly hypokinetic. LVEF is tzabfu-di-qvpxqfgnnu reduced (40%). 2. The right ventricular chamber size and systolic function are within normal limits 3. Estimated peak systolic PA pressure is 45-50 mmHg (mild pulmonary hypertension) . Signature -- Findings Rhythm/BP Regular sinus rhythm during the exam. LeftVentricle LV endocardium is well visualized with IV ultrasound enhancing agent. The left ventricle is chamber size (by PSLAXdimension) is normal (male - LVIDd 4.2-5.8cm) . Normal LV wall thickness. Septal motion is abnormal, likely related to prior cardiacsurgery . The following segments are akinetic: apex, mid to apical septum and anterior All he other segments are mildly hypokinetic. LVEF by Haque's method of disk assessment is lkstvx-qo-jrcfvpepfm reduced (40%) . LV diastolic function is indeterminate. Left Atrium LA size is normal . Right Ventricle RV pacing wire is visualized . The right ventricular chamber size and systolic function are within normal limits. Right Atrium RA size is probably normal based on available views. Atrial Septum Normal interatrial septum by available views. Aortic Valve Normal AoV structure. Mitral Valve Normal MV structure. Trace Mitral Regurgitation. Tricuspid Valve The tricuspid valve is not well visualized. A trace of tricuspid regurgitation. Estimated peak systolic PA pressure is 45-50 mmHg (mild pulmonary hypertension) . Pulmonic Valve PV is not well visualized. Pericardium No significant pericardial effusion is visualized. IVC/SVC/PA/PV/Pleural The inferior vena cava is not visualized. Chambers/Structures Left Atrium LA Volume: 60.17 ml LA Area: 20.05 cm^2 LA Vol. Index: 28 ml/m^2 Left Ventricle LVIDd: 5.4 cm LVEDV:170.85 ml LV Septum Diastolic: 1.07 cm LV PW Diastolic: 1.07 cm LVEDV Haque's:110.77 ml LVESV Haque's:73.42 ml LVEF Haque's: 33.7 % LVEDVI: 51 ml/m^2 LVESVI: 34 ml/m^2 Right Ventricle RV Diast Dim.: 3.89 cm Doppler/Quantitative Measurements Mitral Valve MV Peak E-Wave: 1.08 m/sMV Peak A-Wave: 0.71 m/s E/A Ratio: 1.51 Peak Gradient: 4.63 mmHg Deceleration Time: 151.6 msec MR Velocity: 3.64 m/s MV Antoni. Peak: Tricuspid Valve TR Velocity: 3.4 m/s TR Gradient: 46.31 mmHgValley Children’s HospitalCALCIUM, [id number] 06:46:00 Test Item Value Reference Range Interpretation Comments CALCIUM IONIZED (BEAKER) (test 1.02 mmol/L 1.12-1.27 L code = 698) PH, BLOOD (BEAKER) (test code = 7.42 1810) RAD, CHEST, 1 VIEW, NON [id number] 04:57:00Reason for exam:->Assess cardiopulmonary statusShould this be performed at the bedside?->Yes [facility] 1960 Sex: MFINAL REPORT CLINICAL INDICATION: Support lines. Comparison: 08/18/2020 at 1602 hours The cardiomediastinal contours are stable. Central pulmonary vascular congestion and bilateral parenchymal and pleural opacities are similar within variation of acquisition technique. There is no pneumothorax. A right IJ PA catheter remains in place. Signed: Jimmie Carnes Verified Date/Time: 08/19/2020 04:57:58 COMPREHENSIVE METABOLIC [id number] 04:50:00 Test Item Value Reference Range Interpretation Comments TOTAL PROTEIN 4.4 gm/dL 6.0-8.3 L (BEAKER) (test code = 770) ALBUMIN (BEAKER) 2.5 g/dL 3.5-5.0 L (test code = 1145) ALKALINE PHOSPHATASE 51 U/L 40-150 (BEAKER) (test code = 346) BILIRUBIN TOTAL 2.4 mg/dL 0.2-1.2 H (BEAKER) (test code = 377) SODIUM (BEAKER) (test 138 meq/L 136-145 code = 381) POTASSIUM (BEAKER) 3.7 meq/L 3.5-5.1 (test code = 379) CHLORIDE (BEAKER) 102 meq/L 98-107 (test code = 382) CO2 (BEAKER) (test 31 meq/L 22-29 H code = 355) BLOOD UREA NITROGEN 18 mg/dL 7-21 (BEAKER) (test code = 354) CREATININE (BEAKER) 0.80 mg/dL 0.57-1.25 (test code = 358) GLUCOSE RANDOM 129 mg/dL 70-105 H (BEAKER) (test code = 652) CALCIUM (BEAKER) 7.1 mg/dL 8.4-10.2 L (test code = 697) AST (SGOT) (BEAKER) 128 U/L 5-34 H (test code = 353) ALT (SGPT) (BEAKER) 214 U/L 6-55 H (test code = 347) EGFR (BEAKER) (test 98 mL/min/1.73 ESTIMA SONIA GFR IS code = 1092) sq m NOT ACCURATE CREATININE CLEARANCE IN PREDICTING GLOMERULAR FILTRATION RATE . ESTIMATED GFR I S NOT APPLICABLE FOR DIALYSIS PATIEN TS. Digital Content Specialist ID - HANNA WSpecimen slightly ictericOXYGEN SATURATION, MEASURED 2020-08-19 04:38:00 Test Item Value Reference Range Interpretation Comments O2 SATURATION (MEASURED) (BEAKER) 72.5 % (test code = 1455) [id number] 04:37:00 Test Item Value Reference Range Interpretation Comments MAGNESIUM (BEAKER) (test code = 2.1 mg/dL 1.6-2.6 627) Digital Content Specialist ID - HANNA [id number] 04:37:00 Test Item Value Reference Range Interpretation Comments PHOSPHORUS (BEAKER) (test code = 1.8 mg/dL 2.3-4.7 L 604) Digital Content Specialist SHRADDHA FERREIRA WCBC W/PLT COUNT & AUTO [id number] 04:27:00 Test Item Value Reference Range Interpretation Comments WHITE BLOOD CELL COUNT (BEAKER) 13.1 K/ L 3.5-10.5 H (test code = 775) RED BLOOD CELL COUNT (BEAKER) 2.73 M/ L 4.63-6.08 L (test code = 761) HEMOGLOBIN (BEAKER) (test code = 8.6 GM/DL 13.7-17.5 L 410) HEMATOCRIT (BEAKER) (test code = 25.7 % 40.1-51.0 L 411) MEAN CORPUSCULAR VOLUME (BEAKER) 94.1 fL 79.0-92.2 H (test code = 753) MEAN CORPUSCULAR HEMOGLOBIN 31.5 pg 25.7-32.2 (BEAKER) (test code = 751) MEAN CORPUSCULAR HEMOGLOBIN CONC 33.5 GM/DL 32.3-36.5 (BEAKER) (test code = 752) RED CELL DISTRIBUTION WIDTH 14.6 % 11.6-14.4 H (BEAKER) (test code = 412) PLATELET COUNT (BEAKER) (test 100 K/CU MM 150-450 L code = 756) MEAN PLATELET VOLUME (BEAKER) 11.0 fL 9.4-12.4 (test code = 754) NUCLEATED RED BLOOD CELLS 3 /100 WBC 0-0 H (BEAKER) (test code = 413) NEUTROPHILS RELATIVE PERCENT 70 % (BEAKER) (test code = 429) LYMPHOCYTES RELATIVE PERCENT 14 % (BEAKER) (test code = 430) MONOCYTES RELATIVE PERCENT 11 % (BEAKER) (test code = 431) EOSINOPHILS RELATIVE PERCENT 1 % (BEAKER) (test code = 432) BASOPHILS RELATIVE PERCENT 0 % (BEAKER) (test code = 437) NEUTROPHILS ABSOLUTE COUNT 9.16 K/ L 1.78-5.38 H (BEAKER) (test code = 670) LYMPHOCYTES ABSOLUTE COUNT 1.81 K/ L 1.32-3.57 (BEAKER) (test code = 414) MONOCYTES ABSOLUTE COUNT (BEAKER) 1.39 K/ L 0.30-0.82 H (test code = 415) EOSINOPHILS ABSOLUTE COUNT 0.14 K/ L 0.04-0.54 (BEAKER) (test code = 416) BASOPHILS ABSOLUTE COUNT (BEAKER) 0.02 K/ L 0.01-0.08 (test code = 417) IMMATURE GRANULOCYTES-RELATIVE 4 % 0-1 H PERCENT (BEAKER) (test code = 2801) [id number] 17:17:00 Test Item Value Reference Range Interpretation Comments MAGNESIUM (BEAKER) (test code = 2.1 mg/dL 1.6-2.6 627) Digital Content Specialist ID - [id number] 17:17:00 Test Item Value Reference Range Interpretation Comments PHOSPHORUS (BEAKER) (test code = 1.7 mg/dL 2.3-4.7 L 604) Digital Content Specialist ID - [id number] 17:17:00 Test Item Value Reference Range Interpretation Comments POTASSIUM (BEAKER) (test code = 3.9 meq/L 3.5-5.1 379) Digital Content Specialist ID - BSRAD, CHEST, 1 VIEW, NON [id number] 17:03:00Reason for exam:- >s/p CT removal Should this be performed at the bedside?->Yes [facility] 1960 Sex: MFINAL REPORT Chest, one view. HISTORY: s/p CT removal COMPARISON: Radiograph from earlier today IMPRESSION: Interval removal of a right chest tube. No pneumothorax. The right IJ pulmonary arterial catheter has its tip over the right lower lobe pulmonary artery. There corrie small right pleural effusion. The mild bibasilar atelectasis is unchanged. The mild interstitial pulmonary edema is unchanged. The cardiac silhouette is unchanged. No acute bone abnormality. Signed: Mirian Ortiz MDRhans Verified Date/Time: 08/18/2020 17:03:07 Reading Location: [facility] B1 [id number] Consult Reading Room CBC W/PLT COUNT & AUTO [id number] 16:56:00 Test Item Value Reference Range Interpretation Comments WHITE BLOOD CELL COUNT (BEAKER) 14.8 K/ L 3.5-10.5 H (test code = 775) RED BLOOD CELL COUNT (BEAKER) 3.07 M/ L 4.63-6.08 L (test code = 761) HEMOGLOBIN (BEAKER) (test code = 9.6 GM/DL 13.7-17.5 L 410) HEMATOCRIT (BEAKER) (test code = 28.5 % 40.1-51.0 L 411) MEAN CORPUSCULAR VOLUME (BEAKER) 92.8 fL 79.0-92.2 H (test code = 753) MEAN CORPUSCULAR HEMOGLOBIN 31.3 pg 25.7-32.2 (BEAKER) (test code = 751) MEAN CORPUSCULAR HEMOGLOBIN CONC 33.7 GM/DL 32.3-36.5 (BEAKER) (test code = 752) RED CELL DISTRIBUTION WIDTH 14.6 % 11.6-14.4 H (BEAKER) (test code = 412) PLATELET COUNT (BEAKER) (test code 97 K/CU MM 150-450 L = 756) MEAN PLATELET VOLUME (BEAKER) 10.7 fL 9.4-12.4 (test code = 754) NUCLEATED RED BLOOD CELLS (BEAKER) 4 /100 WBC 0-0 H (test code = 413) NEUTROPHILS RELATIVE PERCENT 76 % (BEAKER) (test code = 429) LYMPHOCYTES RELATIVE PERCENT 12 % (BEAKER) (test code = 430) MONOCYTES RELATIVE PERCENT 9 % (BEAKER) (test code = 431) EOSINOPHILS RELATIVE PERCENT 0 % (BEAKER) (test code = 432) BASOPHILS RELATIVE PERCENT 0 % (BEAKER) (test code = 437) NEUTROPHILS ABSOLUTE COUNT 11.22 K/ L 1.78-5.38 H (BEAKER) (test code = 670) LYMPHOCYTES ABSOLUTE COUNT 1.78 K/ L 1.32-3.57 (BEAKER) (test code = 414) MONOCYTES ABSOLUTE COUNT (BEAKER) 1.37 K/ L 0.30-0.82 H (test code = 415) EOSINOPHILS ABSOLUTE COUNT 0.03 K/ L 0.04-0.54 L (BEAKER) (test code = 416) BASOPHILS ABSOLUTE COUNT (BEAKER) 0.02 K/ L 0.01-0.08 (test code = 417) IMMATURE GRANULOCYTES-RELATIVE 3 % 0-1 H PERCENT (BEAKER) (test code = 2801) CALCIUM, [id number] 16:43:00 Test Item Value Reference Range Interpretation Comments CALCIUM IONIZED (BEAKER) (test 1.04 mmol/L 1.12-1.27 L code = 698) PH, BLOOD (BEAKER) (test code = 7.49 1810) DIGOXIN [id number] 14:39:00 Test Item Value Reference Range Interpretation Comments DIGOXIN LEVEL (BEAKER) (test code 0.76 ng/mL 0.80-2.00 L = 669) Digital Content Specialist ID - THEODORA REEVESYGEN SATURATION, [id number] 13:19:00 Test Item Value Reference Range Interpretation Comments O2 SATURATION (MEASURED) (BEAKER) 49.7 % (test code = 1455) Blood gas, [id number] 13:16:00 Test Item Value Reference Range Interpretation Comments pH, Arterial (test code 7.48 7.35-7.45 H = 2744-1) pCO2, Arterial (test 39 See_Comment [Autom ated message] code = 2019-8) The system [employer] generated this result transmit sonia reference range : 35 - 45 mm Hg. The reference range was not used to interpret this result as normal/abnormal . pO2, Arterial (test 155 See_Comment H [Automa sonia message] code = 2703-7) The system [employer] generated this result transmit sonia reference range : 80 - 90 mm Hg. The reference range was not used to interpret this result as normal/abnormal . O2 Sat, Arterial (test 99.1 % 96-97 H code = 2708-6) HCO3, Arterial (test 28 mmol/L 21-29 code = 1960-4) Base Excess, Arterial 4.3 mmol/L -2-3 H (test code = 1925-7) Patient Temperature 37.5 (test code = 8310-5) FIO2 (test code = 1819) 36 Lab Interpretation Abnormal (test code = 08805-7) [facility], [id number] 13:16:00 Test Item Value Reference Range Interpretation Comments PH ARTERIAL (BEAKER) (test code = 7.48 7.35-7.45 H 383) PCO2 ARTERIAL (BEAKER) (test code 39 mm Hg 35-45 = 384) PO2 ARTERIAL (BEAKER) (test code = 155 mm Hg 80-90 H 385) O2 SATURATION ARTERIAL (BEAKER) 99.1 % 96.0-97.0 H (test code = 386) HCO3 ARTERIAL (BEAKER) (test code 28 mmol/L 21-29 = 388) BASE EXCESS ARTERIAL (BEAKER) 4.3 mmol/L -2.0-3.0 H (test code = 387) PATIENT TEMPERATURE (BEAKER) (test 37.5 code = 1818) FIO2 (BEAKER) (test code = 1819) 36.0 OXYGEN SATURATION, [id number] 10:21:00 Test Item Value Reference Range Interpretation Comments O2 SATURATION (MEASURED) (BEAKER) 45.6 % (test code = 1455) CALCIUM, [id number] 08:19:00 Test Item Value Reference Range Interpretation Comments CALCIUM IONIZED (BEAKER) (test 1.02 mmol/L 1.12-1.27 L code = 698) PH, BLOOD (BEAKER) (test code = 7.50 1810) BLOOD GAS, [id number] 08:18:00 Test Item Value Reference Range Interpretation Comments PH ARTERIAL (BEAKER) (test code = 7.50 7.35-7.45 H 383) PCO2 ARTERIAL (BEAKER) (test code 32 mm Hg 35-45 L = 384) PO2 ARTERIAL (BEAKER) (test code = 74 mm Hg 80-90 L 385) O2 SATURATION ARTERIAL (BEAKER) 96.1 % 96.0-97.0 (test code = 386) HCO3 ARTERIAL (BEAKER) (test code 25 mmol/L 21-29 = 388) BASE EXCESS ARTERIAL (BEAKER) 1.7 mmol/L -2.0-3.0 (test code = 387) PATIENT TEMPERATURE (BEAKER) (test 37.0 code = 1818) FIO2 (BEAKER) (test code = 1819) 21.0 RAD, CHEST, 1 VIEW, NON [id number] 07:46:00Reason for exam:->Assess cardiopulmonary statusShould this be performed at the bedside?->Yes [facility] 1960 Sex: MFINAL REPORT RAD, CHEST, 1 VIEW, NON DEPT INDICATION: Assess cardiopulmonary status COMPARISON: Prior day's exam FINDINGS: Portable frontal view of the chest. IMPRESSION: Support Lines: Left thoracostomy tube has been removed. [place] catheter is stable.Lungs and pleura: No new consolidation or effusion. No pneumothorax.Heart and mediastinum: Stable contours. Stablesurgical changes.Additional findings: None. Signed: JR Mccarthy Robert MDReport Verified Date/Time: 08/18/2020 07:46:54 Reading Location: [facility] Radiology Reading Room COMPREHENSIVE METABOLIC [id number] 05:22:00 Test Item Value Reference Range Interpretation Comments TOTAL PROTEIN 4.9 gm/dL 6.0-8.3 L (BEAKER) (test code = 770) ALBUMIN (BEAKER) 2.9 g/dL 3.5-5.0 L (test code = 1145) ALKALINE PHOSPHATASE 49 U/L 40-150 (BEAKER) (test code = 346) BILIRUBIN TOTAL 2.3 mg/dL 0.2-1.2 H (BEAKER) (test code = 377) SODIUM (BEAKER) (test 137 meq/L 136-145 code = 381) POTASSIUM (BEAKER) 3.6 meq/L 3.5-5.1 (test code = 379) CHLORIDE (BEAKER) 103 meq/L 98-107 (test code = 382) CO2 (BEAKER) (test 23 meq/L 22-29 code = 355) BLOOD UREA NITROGEN 19 mg/dL 7-21 (BEAKER) (test code = 354) CREATININE (BEAKER) 0.78 mg/dL 0.57-1.25 (test code = 358) GLUCOSE RANDOM 133 mg/dL 70-105 H (BEAKER) (test code = 652) CALCIUM (BEAKER) 7.5 mg/dL 8.4-10.2 L (test code = 697) AST (SGOT) (BEAKER) 105 U/L 5-34 H (test code = 353) ALT (SGPT) (BEAKER) 156 U/L 6-55 H (test code = 347) EGFR (BEAKER) (test 101 ESTIMATE D GFR IS code = 1092) mL/min/1.73 sq NOT ACCURA TE m CREATININE CLEARANCE IN PREDICTING GLOMERULAR FILTRATION RATE . ESTIMATED GFR I S NOT APPLICABLE FOR DIALYSIS PATIEN TS. Digital Content Specialist ID - DBSpecimen slightly [id number] 05:02:00 Test Item Value Reference Range Interpretation Comments MAGNESIUM (BEAKER) (test code = 2.0 mg/dL 1.6-2.6 627) Digital Content Specialist ID - [id number] 05:02:00 Test Item Value Reference Range Interpretation Comments PHOSPHORUS (BEAKER) (test code = 1.9 mg/dL 2.3-4.7 L 604) Digital Content Specialist ID - DBLactic Acid, [id number] 04:51:00 Test Item Value Reference Range Interpretation Comments Lactate, Art (test code = 1.0 mmol/L 0.5-2.2 2874) CYNDEE (test code = CYNDEE) Digital Content Specialist ID - DBSpecimen slightly icteric Lab Interpretation (test Normal code = 13714-5) [facility] HospitalLACT[facility] ACID, [id number] 04:51:00 Test Item Value Reference Range Interpretation Comments LACTATE BLOOD ARTERIAL (2) 1.0 mmol/L 0.5-2.2 (BEAKER) (test code = 2874) Digital Content Specialist ID - DBSpecimen slightly ictericCBC W/PLT COUNT & AUTO DIFFERENTIAL 2020-08-18 04:46:00 Test Item Value Reference Range Interpretation Comments WHITE BLOOD CELL COUNT (BEAKER) 12.5 K/ L 3.5-10.5 H (test code = 775) RED BLOOD CELL COUNT (BEAKER) 2.93 M/ L 4.63-6.08 L (test code = 761) HEMOGLOBIN (BEAKER) (test code = 9.2 GM/DL 13.7-17.5 L 410) HEMATOCRIT (BEAKER) (test code = 27.6 % 40.1-51.0 L 411) MEAN CORPUSCULAR VOLUME (BEAKER) 94.2 fL 79.0-92.2 H (test code = 753) MEAN CORPUSCULAR HEMOGLOBIN 31.4 pg 25.7-32.2 (BEAKER) (test code = 751) MEAN CORPUSCULAR HEMOGLOBIN CONC 33.3 GM/DL 32.3-36.5 (BEAKER) (test code = 752) RED CELL DISTRIBUTION WIDTH 14.9 % 11.6-14.4 H (BEAKER) (test code = 412) PLATELET COUNT (BEAKER) (test code 85 K/CU MM 150-450 L = 756) MEAN PLATELET VOLUME (BEAKER) 10.8 fL 9.4-12.4 (test code = 754) NUCLEATED RED BLOOD CELLS (BEAKER) 3 /100 WBC 0-0 H (test code = 413) NEUTROPHILS RELATIVE PERCENT 76 % (BEAKER) (test code = 429) LYMPHOCYTES RELATIVE PERCENT 13 % (BEAKER) (test code = 430) MONOCYTES RELATIVE PERCENT 9 % (BEAKER) (test code = 431) EOSINOPHILS RELATIVE PERCENT 0 % (BEAKER) (test code = 432) BASOPHILS RELATIVE PERCENT 0 % (BEAKER) (test code = 437) NEUTROPHILS ABSOLUTE COUNT 9.43 K/ L 1.78-5.38 H (BEAKER) (test code = 670) LYMPHOCYTES ABSOLUTE COUNT 1.62 K/ L 1.32-3.57 (BEAKER) (test code = 414) MONOCYTES ABSOLUTE COUNT (BEAKER) 1.10 K/ L 0.30-0.82 H (test code = 415) EOSINOPHILS ABSOLUTE COUNT 0.03 K/ L 0.04-0.54 L (BEAKER) (test code = 416) BASOPHILS ABSOLUTE COUNT (BEAKER) 0.02 K/ L 0.01-0.08 (test code = 417) IMMATURE GRANULOCYTES-RELATIVE 2 % 0-1 H PERCENT (BEAKER) (test code = 2801) OXYGEN SATURATION, [id number] 04:44:00 Test Item Value Reference Range Interpretation Comments O2 SATURATION (MEASURED) (BEAKER) 62.3 % (test code = 1455) POCT-GLUCOSE [id number] 00:50:00 Test Item Value Reference Range Interpretation Comments POC-GLUCOSE METER 120 mg/dL 70-110 H : TESTED A T [facility] 6720 (BEAKER) (test code = [place], 1538) [address]: Digital Content Specialist/Techni ena ID = [id number] for JAYLINRamiro Baker BOBBY Prepare Leuko-Red [id number] 23:54:00 Test Item Value Reference Range Interpretation Comments CROSSMATCH (test code = 2264) COMPATIBLE Unit ABO (test code = A Pos 0902449) UNIT NUMBER (test code = [id number] 934-0) Status (test code = 1993546) TX_TIMEINCHART Blood Bank Product (test code RED BLOOD CELLS = 2263) PRODUCT CODE (test code = J8610X57 933-2) [facility] Hospital[facility]uk[facility] [id number] 23:54:00 Test Item Value Reference Range Interpretation Comments Unit ABO (test code = 6583326) A Pos UNIT NUMBER (test code = [id number] 934-0) Status (test code = 0047007) TX_TIMEINCHART Blood Bank Product (test code PLATELETS = 2263) PRODUCT CODE (test code = D6730K06 933-2) [facility] HospitalOXYGEN SATURATION, [id number] 21:05:00 Test Item Value Reference Range Interpretation Comments O2 SATURATION (MEASURED) (BEAKER) 54.8 % (test code = 1455) BLOOD GAS, [id number] 21:05:00 Test Item Value Reference Range Interpretation Comments PH ARTERIAL (BEAKER) (test code = 7.45 7.35-7.45 383) PCO2 ARTERIAL (BEAKER) (test code 38 mm Hg 35-45 = 384) PO2 ARTERIAL (BEAKER) (test code = 93 mm Hg 80-90 H 385) O2 SATURATION ARTERIAL (BEAKER) 97.4 % 96.0-97.0 H (test code = 386) HCO3 ARTERIAL (BEAKER) (test code 25 mmol/L 21-29 = 388) BASE EXCESS ARTERIAL (BEAKER) 1.5 mmol/L -2.0-3.0 (test code = 387) PATIENT TEMPERATURE (BEAKER) (test 37.2 code = 1818) FIO2 (BEAKER) (test code = 1819) 40.0 LACTIC ACID, [id number] 17:50:00 Test Item Value Reference Range Interpretation Comments LACTATE BLOOD ARTERIAL (2) 1.6 mmol/L 0.5-2.2 (BEAKER) (test code = 2874) Digital Content Specialist ID - DBSpecimen slightly ictericBLOOD GAS, [id number] 17:35:00 Test Item Value Reference Range Interpretation Comments PH ARTERIAL (BEAKER) (test code = 7.43 7.35-7.45 383) PCO2 ARTERIAL (BEAKER) (test code 41 mm Hg 35-45 = 384) PO2 ARTERIAL (BEAKER) (test code = 94 mm Hg 80-90 H 385) O2 SATURATION ARTERIAL (BEAKER) 97.4 % 96.0-97.0 H (test code = 386) HCO3 ARTERIAL (BEAKER) (test code 27 mmol/L 21-29 = 388) BASE EXCESS ARTERIAL (BEAKER) 2.4 mmol/L -2.0-3.0 (test code = 387) PATIENT TEMPERATURE (BEAKER) (test 36.8 code = 1818) FIO2 (BEAKER) (test code = 1819) 36.0 POCT-GLUCOSE [id number] 17:18:00 Test Item Value Reference Range Interpretation Comments POC-GLUCOSE METER 132 mg/dL 70-110 H : [facility] (test code = [place], 1538) [address]: Digital Content Specialist/Techni ena ID = [id number] for EL LINGER, HONORIO RAD, CHEST, 1 VIEW, NON [id number] 17:16:00Reason for exam:->acute respiratory insufficiencyShould this be performed at the bedside?->Yes [facility] 1960 Sex: MFINAL REPORT RAD, CHEST, 1 VIEW, NON DEPT TECHNIQUE: Frontal view(s) of the chest. INDICATION: acute respiratory insufficiency. COMPARISON: Chest radiograph same day at 0034 hours FINDINGS/IMPRESSION: Lines/Tubes: [place] catheter tip in the right interlobar pulmonary artery. Chest tubes. Lungs/pleura: No convincing change in the left basal parenchymal opacity, slightly improved aeration of the right lung base. No pleural effusion. No pneumothorax. Heart and Mediastinum: Unchanged. Soft Tissues and Bones: Unchanged. Signed: Debby Ledesma Verified Date/Time: 08/17/2020 17:16:30 Reading Location: [address] Transitional Reading Room OXYGEN SATURATION, [id number] 16:38:00 Test Item Value Reference Range Interpretation Comments O2 SATURATION (MEASURED) (BEAKER) 48.1 % (test code = 1455) 2D Echo W/Doppler(CW/PW/Color)2020-08-17 15:17:11Ejection FractionSLEH ECHO HEARTLAB MKCKESSON CPACSInterface, External Ris In - 08/17/2020 3:17 PM C DTTransthoracic Echocardiography Report (TTE) Demographics Patient Name LINDSAY, Date of Study 08/17/2020 PACO GenderMale Visit Number [id number] Race Unknown Room Number 2C20 Number Date of 1960 Referring Physician Paige Hendricks MD Age 60 year(s) Haunted History Tour Guide Sanjay Ryan [facility] Interpreting Marcio Ferrell, Physician Fellow Washington Lee MD Procedure Type of Study TTE procedure:2DECHO W DOPPLER(CW/PW/COLOR) (STAT) Indications:Evaluation of Ventricular function post ACS.Clinical HistoryHyperlipidemiaHypertension08/14/20 L Cath & PCI + ACBHGB 8.6HCT 25.4 %Contrast Medium: Definity. Amount - 2 mlHeight: 68 inches Weight: 106.14 kg (234 lbs) BSA: 2.18 m^2 BMI: 35.58kg/m^2HR: 122 bpm BP: 121/69 mmHg Summary The left ventricle is chamber size (by PSLAX dimension) is small (male - LVIDd < 4.2cm) . Septal motion is abnormal, likely related to prior cardiac surgery . The following segments are akinetic: mid to apical septum and anterior The following segments are severely hypokinetic: inferior . Theother segments are mildly hypokinetic. LVEF by Haque's method of disk assessment is lszxddkjwr-uq-sqzhar reduced (30%) . LV diastolic function is indeterminate. Estimated peak systolic PA pressure is cannot be determined due to inadequate TR velocity signal . Signature Findings Rhythm/BP Sinus tachycardia during the exam. Left Ventricle The left ventricle is chamber size (by PSLAX dimension) is small (male - LVIDd < 4.2cm) . No evidence of LV hypertrophy. Septal motion is abnormal, likely related to prior cardiac surgery . The fol lowing segments are akinetic: mid to apical septum and anterior The following segments are severely hypokinetic: inferior The other segments are mildly hypokinetic. LVEF by Haque's method of disk assessment is lioelhgtiz-zi-ilalph reduced (30%) . LV diastolic function is indeterminate. Left Atrium LA size is normal . Right Ventricle The right ventricle is not well visualized. Right Atrium The right atrium isnot well visualized. Atrial Septum Normal interatrial septum by available views. Aortic Valve Normal AoV structure. Mitral Valve Normal MV structure. Trace Mitral Regurgitation. Tricuspid Valve The tricuspid valve is not well visualized. Atrace of tricuspid regurgitation. Estimated peak systolic PA pressure is cannot be determined due to inadequate TR velocity signal . Pulmonic Valve PV is not well visualized. Mild pulmonary regurgitation. Aorta Aortic root size (SInus of Valsalva diameter) is normal . Pericardium No significant pericardial effusion is visualized. IVC/SVC/PA/PV/Pleural The inferior vena cava is not visualized. Chambers/Structures Left Atrium LA Volume: 53.49 ml LA Area: 18.13 cm^2 LA Vol. Index: 25 ml/m^2 Left Ventricle LVIDd: 5.54 cm LVEDV:167.79 ml LVIDs: 4.82 cm LV Septum Diastolic: 1.04 cm LV PW Diastolic: 1.06 cm LV FS: 13 % LVEDV Haque's:62.07 ml LVESV Haque's:43.25 ml LVEDVI: 28 ml/m^2 LVEF Haque's: 30.3 % LVESVI: 20 ml/m^2 LVOT Diameter: 1.98 cm Doppler/Quantitative Measurements LVOT LVOT Diameter: 1.98 cm LVOT Area: 3.08 cm^2 RVOT RVOT VTI (PW): 9.91 cm Tricuspid Valve TR Velocity: 1.99 m/s TR Gradient: 15.84 mmHg Pulmonic ValvePeak Velocity: 1.12 m/s Peak Gradient: 5.05 mmHg Mean Velocity: 0.66 m/s Mean Gradient: 1.72 mmHg [facility] HospitalOXYGEN SATURATION, [id number] 09:24:00 Test Item Value Reference Range Interpretation Comments O2 SATURATION (MEASURED) (BEAKER) 54.9 % (test code = 1455) POCT-GLUCOSE [id number] 06:06:00 Test Item Value Reference Range Interpretation Comments POC-GLUCOSE METER 139 mg/dL 70-110 H : TESTED A T [facility] 6720 (BEAKER) (test code = RAYO Baker [facility], 1538) [address]: Digital Content Specialist/Techni ena ID = [id number] for EVERETTE PRECIADO COMPREHENSIVE METABOLIC [id number] 04:51:00 Test Item Value Reference Range Interpretation Comments TOTAL PROTEIN 4.9 gm/dL 6.0-8.3 L (BEAKER) (test code = 770) ALBUMIN (BEAKER) 2.9 g/dL 3.5-5.0 L (test code = 1145) ALKALINE PHOSPHATASE 42 U/L 40-150 (BEAKER) (test code = 346) BILIRUBIN TOTAL 2.0 mg/dL 0.2-1.2 H (BEAKER) (test code = 377) SODIUM (BEAKER) (test 136 meq/L 136-145 code = 381) POTASSIUM (BEAKER) 4.3 meq/L 3.5-5.1 (test code = 379) CHLORIDE (BEAKER) 106 meq/L 98-107 (test code = 382) CO2 (BEAKER) (test 23 meq/L 22-29 code = 355) BLOOD UREA NITROGEN 21 mg/dL 7-21 (BEAKER) (test code = 354) CREATININE (BEAKER) 0.88 mg/dL 0.57-1.25 (test code = 358) GLUCOSE RANDOM 129 mg/dL 70-105 H (BEAKER) (test code = 652) CALCIUM (BEAKER) 8.3 mg/dL 8.4-10.2 L (test code = 697) AST (SGOT) (BEAKER) 152 U/L 5-34 H (test code = 353) ALT (SGPT) (BEAKER) 144 U/L 6-55 H (test code = 347) EGFR (BEAKER) (test 88 mL/min/1.73 ESTIMA SONIA GFR IS code = 1092) sq m NOT ACCURATE CREATININE CLEARANCE IN PREDICTING GLOMERULAR FILTRATION RATE . ESTIMATED GFR I S NOT APPLICABLE FOR DIALYSIS PATIEN TS. Digital Content Specialist ID - DBOperator ID - LUIS DANIEL MSpecimen slightly ictericType and screen, [id number] 03:49:00 Test Item Value Reference Range Interpretation Comments ABO/RH AUTOMATED (BEAKER) (test A POSITIVE code = 2260) Ab Scrn (test code = 890-4) NEGATIVE [facility] W/PLT COUNT & AUTO [id number] 03:43:00 Test Item Value Reference Range Interpretation Comments WHITE BLOOD CELL COUNT 12.5 K/ L 3.5-10.5 H (BEAKER) (test code = 775) RED BLOOD CELL COUNT 2.79 M/ L 4.63-6.08 L (BEAKER) (test code = 761) HEMOGLOBIN (BEAKER) 8.6 GM/DL 13.7-17.5 L (test code = 410) HEMATOCRIT (BEAKER) 25.4 % 40.1-51.0 L (test code = 411) MEAN CORPUSCULAR 91.0 fL 79.0-92.2 Discordant MCV VOLUME (BEAKER) (test result s compared to code = 753) previous result s; clinical correl ation required. MEAN CORPUSCULAR 30.8 pg 25.7-32.2 HEMOGLOBIN (BEAKER) (test code = 751) MEAN CORPUSCULAR 33.9 GM/DL 32.3-36.5 HEMOGLOBIN CONC (BEAKER) (test code = 752) RED CELL DISTRIBUTION 15.3 % 11.6-14.4 H WIDTH (BEAKER) (test code = 412) PLATELET COUNT 75 K/CU MM 150-[address] T (BEAKER) (test code = result s compared to 756) previous result s; clinical correl ation required. MEAN PLATELET VOLUME 11.3 fL 9.4-12.4 (BEAKER) (test code = 754) NUCLEATED RED BLOOD 2 /100 WBC 0-0 H CELLS (BEAKER) (test code = 413) NEUTROPHILS RELATIVE 69 % PERCENT (BEAKER) (test code = 429) LYMPHOCYTES RELATIVE 21 % PERCENT (BEAKER) (test code = 430) MONOCYTES RELATIVE 8 % PERCENT (BEAKER) (test code = 431) EOSINOPHILS RELATIVE 0 % PERCENT (BEAKER) (test code = 432) BASOPHILS RELATIVE 0 % PERCENT (BEAKER) (test code = 437) NEUTROPHILS ABSOLUTE 8.64 K/ L 1.78-5.38 H COUNT (BEAKER) (test code = 670) LYMPHOCYTES ABSOLUTE 2.63 K/ L 1.32-3.57 COUNT (BEAKER) (test code = 414) MONOCYTES ABSOLUTE 1.03 K/ L 0.30-0.82 H COUNT (BEAKER) (test code = 415) EOSINOPHILS ABSOLUTE 0.02 K/ L 0.04-0.54 L COUNT (BEAKER) (test code = 416) BASOPHILS ABSOLUTE 0.01 K/ L 0.01-0.08 COUNT (BEAKER) (test code = 417) IMMATURE 1 % 0-1 GRANULOCYTES-RELATIVE PERCENT (BEAKER) (test code = 2801) Lactate dehydrogenase (LDH)2020-08-17 03:25:00 Test Item Value Reference Range Interpretation Comments LDH (test code = 2532-0) 782 U/L 125-220 H CYNDEE (test code = CYNDEE) Digital Content Specialist ID - DB Lab Interpretation (test Abnormal code = 69087-6) [id number] 03:25:00 Test Item Value Reference Range Interpretation Comments MAGNESIUM (BEAKER) (test code = 1.9 mg/dL 1.6-2.6 627) Digital Content Specialist ID - [id number] 03:25:00 Test Item Value Reference Range Interpretation Comments PHOSPHORUS (BEAKER) (test code = 3.0 mg/dL 2.3-4.7 604) Digital Content Specialist ID - DBLACTATE DEHYDROGENASE (LDH)2020-08-17 03:25:00 Test Item Value Reference Range Interpretation Comments LACTATE DEHYDROGENASE (BEAKER) (test 782 U/L 125-220 H code = 635) Digital Content Specialist ID - DBLACTIC ACID, [id number] 03:18:00 Test Item Value Reference Range Interpretation Comments LACTATE BLOOD ARTERIAL (2) 1.2 mmol/L 0.5-2.2 (BEAKER) (test code = 2874) Digital Content Specialist ID - DBSpecimen slightly ictericCALCIUM, [id number] 03:09:00 Test Item Value Reference Range Interpretation Comments CALCIUM IONIZED (BEAKER) (test 1.13 mmol/L 1.12-1.27 code = 698) PH, BLOOD (BEAKER) (test code = 7.44 1810) BLOOD GAS, [id number] 03:09:00 Test Item Value Reference Range Interpretation Comments PH ARTERIAL (BEAKER) (test code = 7.43 7.35-7.45 383) PCO2 ARTERIAL (BEAKER) (test code 37 mm Hg 35-45 = 384) PO2 ARTERIAL (BEAKER) (test code = 118 mm Hg 80-90 H 385) O2 SATURATION ARTERIAL (BEAKER) 98.4 % 96.0-97.0 H (test code = 386) HCO3 ARTERIAL (BEAKER) (test code 24 mmol/L 21-29 = 388) BASE EXCESS ARTERIAL (BEAKER) 0.4 mmol/L -2.0-3.0 (test code = 387) PATIENT TEMPERATURE (BEAKER) (test 37.6 code = 1818) FIO2 (BEAKER) (test code = 1819) 36.0 OXYGEN SATURATION, [id number] 03:08:00 Test Item Value Reference Range Interpretation Comments O2 SATURATION (MEASURED) (BEAKER) 45.7 % (test code = 1455) POCT-GLUCOSE [id number] 02:49:00 Test Item Value Reference Range Interpretation Comments POC-GLUCOSE METER 122 mg/dL 70-110 H : TESTED A T [facility] 6720 (BEAKER) (test code = RAYO Baker [facility], 1538) 13574: Digital Content Specialist/Techni ena ID = [id number] for NG CHRIS, VALDOG RAD, CHEST, 1 VIEW, NON [id number] 00:47:00while patient is intubated or has chest tubes.Reason for exam:->Status post CV SurgeryShould thisbe performed at the bedside?->Yes [facility] 1960 Sex: MFINAL REPORT CLINICAL INDICATION: Postop Comparison: 08/16/2020 The cardiomediastinal contours are stable. Central pulmonary vascular prominence and bilateral parenchymal opacities are unchanged. There is no pneumothorax. A right IJ PA catheter tip has been retracted and now overlies the distal pulmonary trunk. Support lines are otherwise stable. Signed: Jimmie Carneseport Verified Date/Time: 08/17/2020 00:47:27 Electronically signed by: JIMMIE CARNES M.D.on 08/17/2020 12:47 AMPOCT-GLUCOSE [id number] 00:16:00 Test Item Value Reference Range Interpretation Comments POC-GLUCOSE METER 127 mg/dL 70-110 H : TESTED A T [facility] 6720 (BEAKER) (test code = [facility], 1538) 50419: Digital Content Specialist/Techni ena ID = [id number] for NG CHRIS, DUNG POCT-GLUCOSE [id number] 22:14:00 Test Item Value Reference Range Interpretation Comments POC-GLUCOSE METER 135 mg/dL 70-110 H : TESTED A T [facility] 6720 (BEAKER) (test code = [facility], 1538) [address]: Digital Content Specialist/Techni ena ID = [id number] for NG CHRIS, DUNG POCT-GLUCOSE [id number] 20:28:00 Test Item Value Reference Range Interpretation Comments POC-GLUCOSE METER 128 mg/dL 70-110 H : TESTED A T [facility] 6720 (BEAKER) (test code = [facility], 1538) [address]: Digital Content Specialist/Techni ena ID = [id number] for NG CHRIS, DUNG [id number] 19:43:00 Test Item Value Reference Range Interpretation Comments Haptoglobin (test code = 41 mg/dL 14-258 4542-7) CYNDEE (test code = CYNDEE) Digital Content Specialist ID - DB Lab Interpretation (test Normal code = 48388-5) [facility] 19:43:00 Test Item Value Reference Range Interpretation Comments HAPTOGLOBIN (BEAKER) (test code = 41 mg/dL 14-258 366) Digital Content Specialist ID - DBBasic Metabolic [id number] 19:24:00 Test Item Value Reference Range Interpretation Comments Sodium (test code = 137 meq/L 856-124 8520-2) Potassium (test code 4.1 meq/L 3.5-5.1 = 2823-3) Chloride (test code = 107 meq/L 98-107 2075-0) CO2 (test code = 23 meq/L 22-29 8-9) BUN (test code = 19 mg/dL 7-21 3094-0) Creatinine (test code 0.85 mg/dL 0.57-1.25 = 2160-0) Glucose (test code = 139 mg/dL 70-105 H 2345-7) Calcium (test code = 8.7 mg/dL 8.4-10.2 57955-1) EGFR (test code = 91 mL/min/1.73 [place] [address]-9) NOT ACCURATE CREATININE CLEARANCE IN PREDICTING GLOMERULAR FILTRATION RATE . ESTIMATED GFR I S NOT APPLICABLE FOR DIALYSIS PATIENTS. CYNDEE (test code = CYNDEE) Digital Content Specialist ID - FELTON MSpecimen slightly icteric Lab Interpretation Abnormal (test code = 04360-2) [facility] adult [id number] 19:24:00 Test Item Value Reference Range Interpretation Comments Total Bilirubin (test code 2.6 mg/dL 0.2-1.2 H = 1974-04) CYNDEE (test code = CYNDEE) Digital Content Specialist ID - FELTON M Lab Interpretation (test Abnormal code = 49511-9) [facility], [id number] 19:24:00 Test Item Value Reference Range Interpretation Comments Bilirubin, Direct (test 0.8 mg/dL 0.1-0.5 H code = 1967-09) CYNDEE (test code = CYNDEE) Digital Content Specialist ID - FELTON Lab Interpretation (test Abnormal code = 04449-4) [facility]OLIC [id number] 19:24:00 Test Item Value Reference Range Interpretation Comments SODIUM (BEAKER) 137 meq/L 136-145 (test code = 381) POTASSIUM (BEAKER) 4.1 meq/L 3.5-5.1 (test code = 379) CHLORIDE (BEAKER) 107 meq/L 98-107 (test code = 382) CO2 (BEAKER) (test 23 meq/L code = 355) BLOOD UREA NITROGEN 19 mg/dL 7- (BEAKER) (test code = 354) CREATININE (BEAKER) 0.85 mg/dL 0.57-1.25 (test code = 358) GLUCOSE RANDOM 139 mg/dL 70-105 H (BEAKER) (test code = 652) CALCIUM (BEAKER) 8.7 mg/dL 8.4-10.2 (test code = 697) EGFR (BEAKER) (test 91 mL/min/1.73 ESTIMA SONIA GFR IS code = 1092) sq m NOT ACCURATE CREATININE CLEARANCE IN PREDICTING GLOMERULAR FILTRATION RATE . ESTIMATED GFR I S NOT APPLICABLE FOR DIALYSIS PATIEN TS. Digital Content Specialist ID - FELTON MSpecimen slightly ictericBILIRUBIN, ADULT [id number] 19:24:00 Test Item Value Reference Range Interpretation Comments BILIRUBIN TOTAL (BEAKER) (test code 2.6 mg/dL 0.2-1.2 H = 377) Digital Content Specialist ID - FELTON MBILIRUBIN, [id number] 19:24:00 Test Item Value Reference Range Interpretation Comments BILIRUBIN DIRECT (SHANICEAKER) (test 0.8 mg/dL 0.1-0.5 H code = 706) Digital Content Specialist ID - FELTON MLACTIC ACID, [id number] 19:10:00 Test Item Value Reference Range Interpretation Comments LACTATE BLOOD ARTERIAL (2) 2.0 mmol/L 0.5-2.2 (BEAKER) (test code = 2874) Digital Content Specialist ID Jana GIORDANOpecimen slightly ictericPOCT-GLUCOSE [id number] 19:10:00 Test Item Value Reference Range Interpretation Comments POC-GLUCOSE METER 138 mg/dL 70-110 H : Notified RN/MD: (BERNIE) (test code = TESTED AT [facility] 8064 1445) [facility], [address]: Digital Content Specialist/Techni ena ID = [id number] for [facility] (contract), [place] HGB/HCT (H&H)-Stat [id number] 19:06:00 Test Item Value Reference Range Interpretation Comments Hemoglobin (test code = 9.2 See_Comment L [Au tomated message] 786-4) The system ImpulseSave generated this result transmitted ref erence range: 13.0 - 1 6.8 GM/DL. The refe rence range was not u sed to interpret this result as normal/abnor mal. Hematocrit (test code = 27.0 % 40-50 L 4544-3) Lab Interpretation (test Abnormal code = 01979-1) [facility] Hospital[facility]ucose-Stat [id number] 19:06:00 Test Item Value Reference Range Interpretation Comments Glucose (test code = 2345-7) 134 mg/dL 70-110 H Lab Interpretation (test code = Abnormal 85293-7) [facility] HospitalBLOOD GAS, [id number] 19:06:00 Test Item Value Reference Range Interpretation Comments PH ARTERIAL (BEAKER) (test code = 7.51 7.35-7.45 H 383) PCO2 ARTERIAL (BEAKER) (test code 29 mm Hg 35-45 L = 384) PO2 ARTERIAL (BEAKER) (test code = 116 mm Hg 80-90 H 385) O2 SATURATION ARTERIAL (BEAKER) 98.6 % 96.0-97.0 H (test code = 386) HCO3 ARTERIAL (BEAKER) (test code 23 mmol/L 21-29 = 388) BASE EXCESS ARTERIAL (BEAKER) 0.2 mmol/L -2.0-3.0 (test code = 387) PATIENT TEMPERATURE (BEAKER) (test 36.9 code = 1818) FIO2 (BEAKER) (test code = 1819) 28.0 GLUCOSE-STAT [id number] 19:06:00 Test Item Value Reference Range Interpretation Comments GLUCOSE RANDOM (BEAKER) (test code 134 mg/dL 70-110 H = 652) HGB/HCT (H&H) - STAT [id number] 19:06:00 Test Item Value Reference Range Interpretation Comments HEMOGLOBIN (BEAKER) (test code = 9.2 GM/DL 13.0-16.8 L 410) HEMATOCRIT (BEAKER) (test code = 27.0 % 40.0-50.0 L 411) CALCIUM, [id number] 19:05:00 Test Item Value Reference Range Interpretation Comments CALCIUM IONIZED (BEAKER) (test 1.17 mmol/L 1.12-1.27 code = 698) PH, BLOOD (BEAKER) (test code = 7.51 1810) OXYGEN SATURATION, [id number] 19:05:00 Test Item Value Reference Range Interpretation Comments O2 SATURATION (MEASURED) (BEAKER) 50.7 % (test code = 1455) Sodium Na-Stat [id number] 19:04:00 Test Item Value Reference Range Interpretation Comments Sodium (test code = 2951-2) 135 meq/L 136-145 L Lab Interpretation (test code = Abnormal 80502-8) [facility] HospitalPotassium-Stat [id number] 19:04:00 Test Item Value Reference Range Interpretation Comments Potassium (test code = 2823-3) 3.8 meq/L 3.6-5.5 Lab Interpretation (test code = Normal 08864-6) [facility] [id number] 19:04:00 Test Item Value Reference Range Interpretation Comments SODIUM (BEAKER) (test code = 381) 135 meq/L 136-145 L POTASSIUM-STAT [id number] 19:04:00 Test Item Value Reference Range Interpretation Comments POTASSIUM (BEAKER) (test code = 3.8 meq/L 3.6-5.5 379) OXYGEN SATURATION, [id number] 16:48:00 Test Item Value Reference Range Interpretation Comments O2 SATURATION (MEASURED) (BEAKER) 38.8 % (test code = 1455) POCT-GLUCOSE [id number] 16:48:00 Test Item Value Reference Range Interpretation Comments POC-GLUCOSE METER 156 mg/dL 70-110 H : TESTED A T [facility] 6720 (BEAKER) ([facility], 1538) [address]: Digital Content Specialist/Techni ena ID = [id number] for Liyah Rice POCT-GLUCOSE [id number] 11:55:00 Test Item Value Reference Range Interpretation Comments POC-GLUCOSE METER 108 mg/dL 70-110 : TESTED A T [facility] 6720 (BEAKER) (test code = [facility], 1538) [address]: Digital Content Specialist/Techni ena ID = [id number] for Liyah Rice CBC (Hemogram only)2020-08-16 11:53:00 Test Item Value Reference Range Interpretation Comments WBC (test code = 6690-2) 11.1 See_Comment H [A utomated message] The system ImpulseSave generated this result transmitted ref erence range: 3.5 - 10 .5 K/L. The refe rence range was not u sed to interpret this result as normal/abnor mal. RBC (test code = 789-8) 2.26 See_Comment L [Au tomated message] The system ImpulseSave generated this result transmitted ref erence range: 4.63 - 6 .08 M/L. The refe rence range was not u sed to interpret this result as normal/abnor mal. MCHC (test code = 786-4) 33.6 See_Comment L [A utomated message] The system ImpulseSave generated this result transmitted ref erence range: 32.3 - 3 6.5 GM/DL. The refe rence range was not u sed to interpret this result as normal/abnor mal. Hematocrit (test code = 21.7 % 40.1-51 L 4544-3) MCV (test code = 787-2) 96.0 fL 79-92.2 H MCH (test code = 785-6) 32.3 pg 25.7-32.2 H RDW (test code = 788-0) 13.5 % 11.6-14.4 Platelets (test code = 41 See_Comment L [Aut omated message] 777-3) The system ImpulseSave generated this result transmitted ref erence range: 150 - 45 0 K/CU MM. The referen ce range was not u sed to interpret this result as normal/abnor mal. MPV (test code = 11.1 fL 9.4-12.4 36537-3) nRBC (test code = 413) 0 See_Comment [Aut omated message] The system ImpulseSave generated this result transmitted ref erence range: 0 - 0 /1 00 WBC. The refere nce range was not u sed to interpret this result as normal/abnor mal. Lab Interpretation (test Abnormal code = 64376-8) [facility] (HEMOGRAM ONLY)2020-08-16 11:53:00 Test Item Value Reference Range Interpretation Comments WHITE BLOOD CELL COUNT (BEAKER) 11.1 K/ L 3.5-10.5 H (test code = 775) RED BLOOD CELL COUNT (BEAKER) 2.26 M/ L 4.63-6.08 L (test code = 761) HEMOGLOBIN (BEAKER) (test code = 7.3 GM/DL 13.7-17.5 L 410) HEMATOCRIT (BEAKER) (test code = 21.7 % 40.1-51.0 L 411) MEAN CORPUSCULAR VOLUME (BEAKER) 96.0 fL 79.0-92.2 H (test code = 753) MEAN CORPUSCULAR HEMOGLOBIN 32.3 pg 25.7-32.2 H (BEAKER) (test code = 751) MEAN CORPUSCULAR HEMOGLOBIN CONC 33.6 GM/DL 32.3-36.5 (BEAKER) (test code = 752) RED CELL DISTRIBUTION WIDTH 13.5 % 11.6-14.4 (BEAKER) (test code = 412) PLATELET COUNT (BEAKER) (test code 41 K/CU MM 150-450 L = 756) MEAN PLATELET VOLUME (BEAKER) 11.1 fL 9.4-12.4 (test code = 754) NUCLEATED RED BLOOD CELLS (BEAKER) 0 /100 WBC 0-0 (test code = 413) POCT-GLUCOSE [id number] 08:52:00 Test Item Value Reference Range Interpretation Comments POC-GLUCOSE METER 127 mg/dL 70-110 H : TESTED A T [facility] 6720 (BEAKER) (test code = [facility], 1538) [address]: Digital Content Specialist/Techni ena ID = [id number] for Liyah Rice POCT-GLUCOSE [id number] 06:38:00 Test Item Value Reference Range Interpretation Comments POC-GLUCOSE METER 123 mg/dL 70-110 H : TESTED A T [facility] 6720 (BEAKER) (test code = [facility], 1538) [address]: Digital Content Specialist/Techni ena ID = [id number] for ROMANA HUDSON (Jaspal)THIERNO RAD, CHEST, 1 VIEW, NON [id number] 04:49:00while patient is intubated or has chest tubes.Reason for exam:->Status post CV SurgeryShould thisbe performed at the bedside?->Yes [facility] 1960 Sex: MFINAL REPORT CLINICAL INDICATION: Postop Comparison: 08/15/2020 The cardiomediastinal contours are stable. Central pulmonary vascular congestion and bilateral parenchymal opacities are unchanged. There is no pneumothorax. A right IJ PA catheter has been advanced and now has its tip overlying the right hilum. Support lines are otherwise stable. Signed: Jimmie Carnes MDReport Verified Date/Time: 08/16/2020 04:49:58 Electronically signed by: JIMMIE CARNES M.D. on08/16/2020 04:49 [id number] 04:24:00 Test Item Value Reference Range Interpretation Comments MAGNESIUM (BEAKER) (test code = 2.1 mg/dL 1.6-2.6 627) Digital Content Specialist ID - LUIS DANIEL [id number] 04:24:00 Test Item Value Reference Range Interpretation Comments PHOSPHORUS (BEAKER) (test code = 3.0 mg/dL 2.3-4.7 604) Digital Content Specialist ID - LUIS DANIEL MCOMPREHENSIVE METABOLIC [id number] 04:24:00 Test Item Value Reference Range Interpretation Comments TOTAL PROTEIN 4.6 gm/dL 6.0-8.3 L (BEAKER) (test code = 770) ALBUMIN (BEAKER) 2.8 g/dL 3.5-5.0 L (test code = 1145) ALKALINE PHOSPHATASE 34 U/L 40-150 L (BEAKER) (test code = 346) BILIRUBIN TOTAL 2.4 mg/dL 0.2-1.2 H (BEAKER) (test code = 377) SODIUM (BEAKER) (test 140 meq/L 136-145 code = 381) POTASSIUM (BEAKER) 3.9 meq/L 3.5-5.1 (test code = 379) CHLORIDE (BEAKER) 108 meq/L 98-107 H (test code = 382) CO2 (BEAKER) (test 25 meq/L 22-29 code = 355) BLOOD UREA NITROGEN 23 mg/dL 7-21 H (BEAKER) (test code = 354) CREATININE (BEAKER) 0.80 mg/dL 0.57-1.25 (test code = 358) GLUCOSE RANDOM 130 mg/dL 70-105 H (BEAKER) (test code = 652) CALCIUM (BEAKER) 8.2 mg/dL 8.4-10.2 L (test code = 697) AST (SGOT) (BEAKER) 109 U/L 5-34 H (test code = 353) ALT (SGPT) (BEAKER) 57 U/L 6-55 H (test code = 347) EGFR (BEAKER) (test 98 mL/min/1.73 ESTIMA SONIA GFR IS code = 1092) sq m NOT ACCURATE CREATININE CLEARANCE IN PREDICTING GLOMERULAR FILTRATION RATE . ESTIMATED GFR I S NOT APPLICABLE FOR DIALYSIS PATIEN TS. Digital Content Specialist ID - LUIS DANIEL MSpecimen slightly ictericPOCT-GLUCOSE [id number] 04:02:00 Test Item Value Reference Range Interpretation Comments POC-GLUCOSE METER 133 mg/dL 70-110 H : TESTED A T [facility] 6720 (BEAKER) (test code = [facility] [place], 1538) [address]: Digital Content Specialist/Techni ena ID = [id number] for ROMANA HUDSON (V)THIERNO LACTIC ACID, [id number] 04:02:00 Test Item Value Reference Range Interpretation Comments LACTATE BLOOD ARTERIAL (2) 1.4 mmol/L 0.5-2.2 (BEAKER) (test code = 2874) Digital Content Specialist ID - ADMINCBC W/PLT COUNT & AUTO [id number] 04:00:00 Test Item Value Reference Range Interpretation Comments WHITE BLOOD CELL COUNT (BEAKER) 11.1 K/ L 3.5-10.5 H (test code = 775) RED BLOOD CELL COUNT (BEAKER) 2.22 M/ L 4.63-6.08 L (test code = 761) HEMOGLOBIN (BEAKER) (test code = 7.2 GM/DL 13.7-17.5 L 410) HEMATOCRIT (BEAKER) (test code = 21.4 % 40.1-51.0 L 411) MEAN CORPUSCULAR VOLUME (BEAKER) 96.4 fL 79.0-92.2 H (test code = 753) MEAN CORPUSCULAR HEMOGLOBIN 32.4 pg 25.7-32.2 H (BEAKER) (test code = 751) MEAN CORPUSCULAR HEMOGLOBIN CONC 33.6 GM/DL 32.3-36.5 (BEAKER) (test code = 752) RED CELL DISTRIBUTION WIDTH 12.9 % 11.6-14.4 (BEAKER) (test code = 412) PLATELET COUNT (BEAKER) (test code 54 K/CU MM 150-450 L = 756) MEAN PLATELET VOLUME (BEAKER) 11.4 fL 9.4-12.4 (test code = 754) NUCLEATED RED BLOOD CELLS (BEAKER) 0 /100 WBC 0-0 (test code = 413) NEUTROPHILS RELATIVE PERCENT 73 % (BEAKER) (test code = 429) LYMPHOCYTES RELATIVE PERCENT 18 % (BEAKER) (test code = 430) MONOCYTES RELATIVE PERCENT 8 % (BEAKER) (test code = 431) EOSINOPHILS RELATIVE PERCENT 0 % (BEAKER) (test code = 432) BASOPHILS RELATIVE PERCENT 0 % (BEAKER) (test code = 437) NEUTROPHILS ABSOLUTE COUNT 8.08 K/ L 1.78-5.38 H (BEAKER) (test code = 670) LYMPHOCYTES ABSOLUTE COUNT 2.03 K/ L 1.32-3.57 (BEAKER) (test code = 414) MONOCYTES ABSOLUTE COUNT (BEAKER) 0.94 K/ L 0.30-0.82 H (test code = 415) EOSINOPHILS ABSOLUTE COUNT 0.01 K/ L 0.04-0.54 L (BEAKER) (test code = 416) BASOPHILS ABSOLUTE COUNT (BEAKER) 0.02 K/ L 0.01-0.08 (test code = 417) IMMATURE GRANULOCYTES-RELATIVE 0 % 0-1 PERCENT (BEAKER) (test code = 2801) OXYGEN SATURATION, [id number] 03:58:00 Test Item Value Reference Range Interpretation Comments O2 SATURATION (MEASURED) (BEAKER) 51.3 % (test code = 1455) CALCIUM, [id number] 03:55:00 Test Item Value Reference Range Interpretation Comments CALCIUM IONIZED (BEAKER) (test 1.10 mmol/L 1.12-1.27 L code = 698) PH, BLOOD (BEAKER) (test code = 7.48 1810) BLOOD GAS, [id number] 03:55:00 Test Item Value Reference Range Interpretation Comments PH ARTERIAL (BEAKER) (test code = 7.49 7.35-7.45 H 383) PCO2 ARTERIAL (BEAKER) (test code 34 mm Hg 35-45 L = 384) PO2 ARTERIAL (BEAKER) (test code = 86 mm Hg 80-90 385) O2 SATURATION ARTERIAL (BEAKER) 97.4 % 96.0-97.0 H (test code = 386) HCO3 ARTERIAL (BEAKER) (test code 25 mmol/L 21-29 = 388) BASE EXCESS ARTERIAL (BEAKER) 1.9 mmol/L -2.0-3.0 (test code = 387) PATIENT TEMPERATURE (BEAKER) (test 36.4 code = 1818) FIO2 (BEAKER) (test code = 1819) 36.0 POCT-GLUCOSE [id number] 02:23:00 Test Item Value Reference Range Interpretation Comments POC-GLUCOSE METER 133 mg/dL 70-110 H : TESTED A T [facility] 6720 (BEAKER) (test code = [facility] [place], 1538) [address]: Digital Content Specialist/Techni ena ID = [id number] for THIERNO DIAZ SARS-COV2/RT-PCR ([facility])2020-08-16 00:34:00 Test Item Value Reference Range Interpretation Comments SARS-COV2/RT-PCR (test code Negative Not Detected, Negative, = [id number]) See external report for linked test [facility]COV-2 [facility] [place] code = 3682414) Negative results do not preclude SARS-CoV-2 infection and should not be used as the sole basis for patient management decisions. Negative results must be combined with clinical observations, patient history, and epidemiological information. A false negative result may occur if a specimen is improperly collected, transported or handled.The limit of detection for this assay is 250 copies/mL.This SARS CoV-2 test is a rapid, real-time RT-PCR test intended for the qualitative detection of nucleic acid from SARS-CoV-2 in a nasopharyngeal swab specimen collected from individuals suspected of COVID-19 by their healthcare provider.This test has not been Food and Drug Administration (FDA) cleared or approved and has been authorized by FDA under an Emergency Use Authorization (EUA). This EUA will be effective until the declaration that circumstances exist justifying the authorization of the emergency use of in vitro diagnostic tests for detection and/or diagnosis of COVID-19 is terminated under Section 564(b)(2) of the Act or the EUA is revoked under Section 564(g) of the Act.Fact Sheet for Healthcare Pro viders:https://www.[employer]/Documents/Xpert%20Xpress%20SARS%20CoV-2/Fact%20Sh eets/302-3802%57CDQI-SLG-5%20HEALTHCARE%20PROVIDERS%20FACT%20SHEET.pdfFact Sheet for Healthcare Patients:https://www.[employer]/Documents/Xpert%20Xpress%20SARS%20CoV-2/Fact%20Sheets/302-3801%20SARS-COV -2%20PATIENT%20FACT%20SHEET.pdfPerforming Laboratory:[facility] [place] [address]LQGURO NA-STAT [id number] 23:21:00 Test Item Value Reference Range Interpretation Comments SODIUM (BEAKER) (test code = 381) 137 meq/L 136-145 POTASSIUM-STAT [id number] 23:21:00 Test Item Value Reference Range Interpretation Comments POTASSIUM (BEAKER) (test code = 3.6 meq/L 3.6-5.5 379) BLOOD GAS, [id number] 23:21:00 Test Item Value Reference Range Interpretation Comments PH ARTERIAL (BEAKER) (test code = 7.47 7.35-7.45 H 383) PCO2 ARTERIAL (BEAKER) (test code 35 mm Hg 35-45 = 384) PO2 ARTERIAL (BEAKER) (test code = 90 mm Hg 80-90 385) O2 SATURATION ARTERIAL (BEAKER) 97.3 % 96.0-97.0 H (test code = 386) HCO3 ARTERIAL (BEAKER) (test code 25 mmol/L 21-29 = 388) BASE EXCESS ARTERIAL (BEAKER) 1.7 mmol/L -2.0-3.0 (test code = 387) PATIENT TEMPERATURE (BEAKER) (test 37.5 code = 1818) FIO2 (BEAKER) (test code = 1819) 36.0 GLUCOSE-STAT [id number] 23:21:00 Test Item Value Reference Range Interpretation Comments GLUCOSE RANDOM (BEAKER) (test code 146 mg/dL 70-110 H = 652) HGB/HCT (H&H) - STAT [id number] 23:21:00 Test Item Value Reference Range Interpretation Comments HEMOGLOBIN (BEAKER) (test code = 7.8 GM/DL 13.0-16.8 L 410) HEMATOCRIT (BEAKER) (test code = 23.0 % 40.0-50.0 L 411) OXYGEN SATURATION, [id number] 23:19:00 Test Item Value Reference Range Interpretation Comments O2 SATURATION (MEASURED) (BEAKER) 43.0 % (test code = 1455) LACTIC ACID, [id number] 22:13:00 Test Item Value Reference Range Interpretation Comments LACTATE BLOOD ARTERIAL (2) 1.6 mmol/L 0.5-2.2 (BEAKER) (test code = 2874) Digital Content Specialist ID - EMERSONPOCT-GLUCOSE [id number] 22:10:00 Test Item Value Reference Range Interpretation Comments POC-GLUCOSE METER 150 mg/dL 70-110 H : TESTED A T [facility] 6720 (BEAKER) (test code = [facility] [place], 1538) [address]: Digital Content Specialist/Techni ena ID = [id number] for ROMANA HoskinsJaspalTHIERNO Parmar CALCIUM, [id number] 21:58:00 Test Item Value Reference Range Interpretation Comments CALCIUM IONIZED (BEAKER) (test 1.05 mmol/L 1.12-1.27 L code = 698) PH, BLOOD (BEAKER) (test code = 7.50 1810) BLOOD GAS, [id number] 21:58:00 Test Item Value Reference Range Interpretation Comments PH ARTERIAL (BEAKER) (test code = 7.49 7.35-7.45 H 383) PCO2 ARTERIAL (BEAKER) (test code 33 mm Hg 35-45 L = 384) PO2 ARTERIAL (BEAKER) (test code = 85 mm Hg 80-90 385) O2 SATURATION ARTERIAL (BEAKER) 97.0 % 96.0-97.0 (test code = 386) HCO3 ARTERIAL (BEAKER) (test code 24 mmol/L 21-29 = 388) BASE EXCESS ARTERIAL (BEAKER) 1.0 mmol/L -2.0-3.0 (test code = 387) PATIENT TEMPERATURE (BEAKER) (test 37.5 code = 1818) FIO2 (BEAKER) (test code = 1819) 36.0 SODIUM NA-STAT [id number] 21:58:00 Test Item Value Reference Range Interpretation Comments SODIUM (BEAKER) (test code = 381) 136 meq/L 136-145 GLUCOSE-STAT [id number] 21:58:00 Test Item Value Reference Range Interpretation Comments GLUCOSE RANDOM (BEAKER) (test code 145 mg/dL 70-110 H = 652) HGB/HCT (H&H) - STAT [id number] 21:58:00 Test Item Value Reference Range Interpretation Comments HEMOGLOBIN (BEAKER) (test code = 7.7 GM/DL 13.0-16.8 L 410) HEMATOCRIT (BEAKER) (test code = 23.0 % 40.0-50.0 L 411) POTASSIUM-STAT [id number] 21:57:00 Test Item Value Reference Range Interpretation Comments POTASSIUM (BEAKER) (test code = 3.7 meq/L 3.6-5.5 379) OXYGEN SATURATION, [id number] 21:51:00 Test Item Value Reference Range Interpretation Comments O2 SATURATION (MEASURED) (BEAKER) 36.3 % (test code = 1455) POCT-GLUCOSE [id number] 18:55:00 Test Item Value Reference Range Interpretation Comments POC-GLUCOSE METER 134 mg/dL 70-110 H : TESTED A T [facility] 6720 (BEAKER) (test code = [facility] [employer], 1538) [address]: Digital Content Specialist/Techni ena ID = [id number] for Liyah Rice POCT-GLUCOSE [id number] 14:03:00 Test Item Value Reference Range Interpretation Comments POC-GLUCOSE METER 141 mg/dL 70-110 H : TESTED A T [facility] 6720 (BEAKER) (test code = [facility] [employer] [facility], 1538) 80048: Digital Content Specialist/Techni ena ID = [id number] for Liyah Rice LACTIC ACID, [id number] 13:02:00 Test Item Value Reference Range Interpretation Comments LACTATE BLOOD ARTERIAL (2) 2.1 mmol/L 0.5-2.2 (BEAKER) (test code = 2874) Digital Content Specialist ID - VALERYMECHECTIC ACID, [id number] 09:32:00 Test Item Value Reference Range Interpretation Comments LACTATE BLOOD ARTERIAL (2) 3.4 mmol/L 0.5-2.2 H (BEAKER) (test code = 2874) Digital Content Specialist ID - LUIS DANIEL MPOCT-GLUCOSE [id number] 09:09:00 Test Item Value Reference Range Interpretation Comments POC-GLUCOSE METER 145 mg/dL 70-110 H : TESTED A T [facility] 6720 (BEAKER) (test code = [facility], 1538) 81216: Digital Content Specialist/Techni ena ID = [id number] for Liyah Rice POCT-GLUCOSE [id number] 06:55:00 Test Item Value Reference Range Interpretation Comments POC-GLUCOSE METER 159 mg/dL 70-110 H : TESTED A T [facility] 6720 (BEAKER) (test code = [facility], 1538) 21260: Digital Content Specialist/Techni ena ID = [id number] for BOBBY ALEXANDER LACTIC ACID, [id number] 05:47:00 Test Item Value Reference Range Interpretation Comments LACTATE BLOOD ARTERIAL (2) 5.8 mmol/L 0.5-2.2 HH (BEAKER) (test code = 2874) Digital Content Specialist ID - LUIS DANIEL MRAD, CHEST, 1 VIEW, NON [id number] 04:43:00while patient is intubated or has chest tubes.Reason for exam:->Status post CV SurgeryShould thisbe performed at the bedside?->Yes [facility] 1960 Sex: MFINAL REPORT RAD, CHEST, 1 VIEW, NON DEPT INDICATION: Status post CV Surgery COMPARISON: Prior day's exam FINDINGS: Portable frontal view of the chest. IMPRESSION: Support Lines: Intra-aortic balloon pump superior marker terminates 2.8 cm below the superior aspect of the aortic knob. Interval extubation and removal the previously seen enteric tube. Otherwise unchanged support apparatus. Lungs and pleura: Unchanged airspace and pleural opacities. No pneumothorax.Heartand mediastinum: Stable contours. Stable surgical changes.Additional findings: None. Signed: Lucy Pichardo Verified Date/Time: 08/15/2020 04:43:09 CBC W/PLT COUNT & AUTO DIFFERENTIAL 2020-08-15 04:15:00 Test Item Value Reference Range Interpretation Comments WHITE BLOOD CELL COUNT (BEAKER) 14.8 K/ L 3.5-10.5 H (test code = 775) RED BLOOD CELL COUNT (BEAKER) 3.10 M/ L 4.63-6.08 L (test code = 761) HEMOGLOBIN (BEAKER) (test code = 10.0 GM/DL 13.7-17.5 L 410) HEMATOCRIT (BEAKER) (test code = 29.8 % 40.1-51.0 L 411) MEAN CORPUSCULAR VOLUME (BEAKER) 96.1 fL 79.0-92.2 H (test code = 753) MEAN CORPUSCULAR HEMOGLOBIN 32.3 pg 25.7-32.2 H (BEAKER) (test code = 751) MEAN CORPUSCULAR HEMOGLOBIN CONC 33.6 GM/DL 32.3-36.5 (BEAKER) (test code = 752) RED CELL DISTRIBUTION WIDTH 12.6 % 11.6-14.4 (BEAKER) (test code = 412) PLATELET COUNT (BEAKER) (test code 83 K/CU MM 150-450 L = 756) MEAN PLATELET VOLUME (BEAKER) 10.5 fL 9.4-12.4 (test code = 754) NUCLEATED RED BLOOD CELLS (BEAKER) 0 /100 WBC 0-0 (test code = 413) NEUTROPHILS RELATIVE PERCENT 81 % (BEAKER) (test code = 429) LYMPHOCYTES RELATIVE PERCENT 10 % (BEAKER) (test code = 430) MONOCYTES RELATIVE PERCENT 9 % (BEAKER) (test code = 431) EOSINOPHILS RELATIVE PERCENT 0 % (BEAKER) (test code = 432) BASOPHILS RELATIVE PERCENT 0 % (BEAKER) (test code = 437) NEUTROPHILS ABSOLUTE COUNT 11.99 K/ L 1.78-5.38 H (BEAKER) (test code = 670) LYMPHOCYTES ABSOLUTE COUNT 1.42 K/ L 1.32-3.57 (BEAKER) (test code = 414) MONOCYTES ABSOLUTE COUNT (BEAKER) 1.30 K/ L 0.30-0.82 H (test code = 415) EOSINOPHILS ABSOLUTE COUNT 0.00 K/ L 0.04-0.54 L (BEAKER) (test code = 416) BASOPHILS ABSOLUTE COUNT (BEAKER) 0.02 K/ L 0.01-0.08 (test code = 417) IMMATURE GRANULOCYTES-RELATIVE 0 % 0-1 PERCENT (BEAKER) (test code = 2801) COMPREHENSIVE METABOLIC [id number] 04:09:00 Test Item Value Reference Range Interpretation Comments TOTAL PROTEIN 4.3 gm/dL 6.0-8.3 L (BEAKER) (test code = 770) ALBUMIN (BEAKER) 2.5 g/dL 3.5-5.0 L (test code = 1145) ALKALINE PHOSPHATASE 34 U/L 40-150 L (BEAKER) (test code = 346) BILIRUBIN TOTAL 1.6 mg/dL 0.2-1.2 H (BEAKER) (test code = 377) SODIUM (BEAKER) (test 145 meq/L 136-145 code = 381) POTASSIUM (BEAKER) 4.3 meq/L 3.5-5.1 (test code = 379) CHLORIDE (BEAKER) 112 meq/L 98-107 H (test code = 382) CO2 (BEAKER) (test 22 meq/L 22-29 code = 355) BLOOD UREA NITROGEN 17 mg/dL 7-21 (BEAKER) (test code = 354) CREATININE (BEAKER) 1.09 mg/dL 0.57-1.25 (test code = 358) GLUCOSE RANDOM 228 mg/dL 70-105 H (BEAKER) (test code = 652) CALCIUM (BEAKER) 7.5 mg/dL 8.4-10.2 L (test code = 697) AST (SGOT) (BEAKER) 288 U/L 5-34 H (test code = 353) ALT (SGPT) (BEAKER) 63 U/L 6-55 H (test code = 347) EGFR (BEAKER) (test 69 mL/min/1.73 ESTIMA SONIA GFR IS code = 1092) sq m NOT ACCURATE CREATININE CLEARANCE IN PREDICTING GLOMERULAR FILTRATION RATE . ESTIMATED GFR I S NOT APPLICABLE FOR DIALYSIS PATIEN TS. Digital Content Specialist ID - LUIS DANIEL [id number] 04:05:00 Test Item Value Reference Range Interpretation Comments MAGNESIUM (BEAKER) (test code = 2.0 mg/dL 1.6-2.6 627) Digital Content Specialist ID - LUIS DANIEL [id number] 04:05:00 Test Item Value Reference Range Interpretation Comments PHOSPHORUS (BEAKER) (test code = 2.1 mg/dL 2.3-4.7 L 604) Digital Content Specialist ID - LUIS DANIEL MOXYGEN SATURATION, [id number] 03:58:00 Test Item Value Reference Range Interpretation Comments O2 SATURATION (MEASURED) (BEAKER) 60.8 % (test code = 1455) [id number] 03:53:00 Test Item Value Reference Interpretation Comments Range Protime (test code = 17.1 See_Comment H [Autom ated 5452-2) message] The system which generated this result transmitted reference range : 11.9 - 14.2 seconds. The reference range was not used to interpret this result as normal/abnormal . INR (test code = 1.43 See_Comment [Automated 2469-6) message] The system which generated this result transmitted reference range : <=5.90. The reference range was not used to interpret this result as normal/abnormal . PTT (test code = 30.0 See_Comment [Automated 42871-1) message] The system which generated this result transmitted reference range : 22.5 - 36.0 seconds. The reference range was not used to interpret this result as normal/abnormal . CYNDEE (test code = RECOMMENDED CYNDEE) COUMADIN/WARFARIN INR THERAPY RANGESSTANDARD DOSE: 2.0 - 3.0 Includes: PROPHYLAXIS for venous thrombosis, systemic embolization; TREATMENT for venous thrombosis and/or pulmonary embolus.HIGH RISK: Target INR is 2.5-3.5 for patients with mechanical heart valves. Lab Interpretation Abnormal (test code = 59127-7) [id number] 03:53:00 Test Item Value Reference Range Interpretation Comments PROTIME (BEAKER) (test 17.1 seconds 11.9-14.2 H code = 759) INR (BEAKER) (test 1.43 See_Comment [Automat ed code = 370) message] The sy stem which generated this result transmitted reference range : <=5.90. The reference range was not used to interpret this result as normal/abnormal . PARTIAL THROMBOPLASTIN 30.0 seconds 22.5-36.0 TIME (BEAKER) (test code = 760) RECOMMENDED COUMADIN/WARFARIN INR THERAPY RANGESSTANDARD DOSE: 2.0 - 3.0 Includes: PROPHYLAXIS forvenous thrombosis, systemic embolization; TREATMENT for venous thrombosis and/or pulmonary embolus.HIGH RISK: Target INR is 2.5-3.5 for patients with mechanical heart valves.CALCIUM, [id number] 03:45:00 Test Item Value Reference Range Interpretation Comments CALCIUM IONIZED (BEAKER) (test 1.07 mmol/L 1.12-1.27 L code = 698) PH, BLOOD (BEAKER) (test code = 7.48 1810) BLOOD GAS, [id number] 03:45:00 Test Item Value Reference Range Interpretation Comments PH ARTERIAL (BEAKER) (test code = 7.49 7.35-7.45 H 383) PCO2 ARTERIAL (BEAKER) (test code 29 mm Hg 35-45 L = 384) PO2 ARTERIAL (BEAKER) (test code 116 mm Hg 80-90 H = 385) O2 SATURATION ARTERIAL (BEAKER) 98.6 % 96.0-97.0 H (test code = 386) HCO3 ARTERIAL (BEAKER) (test code 22 mmol/L 21-29 = 388) BASE EXCESS ARTERIAL (BEAKER) -0.8 mmol/L -2.0-3.0 (test code = 387) PATIENT TEMPERATURE (BEAKER) 36.4 (test code = 1818) FIO2 (BEAKER) (test code = 181) 36.0 LACTIC ACID, [id number] 01:09:00 Test Item Value Reference Range Interpretation Comments LACTATE BLOOD ARTERIAL (2) 11.7 mmol/L 0.5-2.2 HH (BEAKER) (test code = 2874) Digital Content Specialist ID - DBBLOOD GAS, [id number] 00:18:00 Test Item Value Reference Range Interpretation Comments PH ARTERIAL (BEAKER) (test code = 7.32 7.35-7.45 L 383) PCO2 ARTERIAL (BEAKER) (test code 40 mm Hg 35-45 = 384) PO2 ARTERIAL (BEAKER) (test code 98 mm Hg 80-90 H = 385) O2 SATURATION ARTERIAL (BEAKER) 96.9 % 96.0-97.0 (test code = 386) HCO3 ARTERIAL (BEAKER) (test code 20 mmol/L 21-29 L = 388) BASE EXCESS ARTERIAL (BEAKER) -5.4 mmol/L -2.0-3.0 L (test code = 387) PATIENT TEMPERATURE (BEAKER) 37.4 (test code = 1818) FIO2 (BEAKER) (test code = 1818) 40.0 LACTIC ACID, [id number] 23:57:00 Test Item Value Reference Range Interpretation Comments LACTATE BLOOD ARTERIAL (2) 12.9 mmol/L 0.5-2.2 HH (BEAKER) (test code = 2874) Digital Content Specialist ID - DBBLOOD GAS, [id number] 22:46:00 Test Item Value Reference Range Interpretation Comments PH ARTERIAL (BEAKER) (test code = 7.31 7.35-7.45 L 383) PCO2 ARTERIAL (BEAKER) (test code 37 mm Hg 35-45 = 384) PO2 ARTERIAL (BEAKER) (test code 137 mm Hg 80-90 H = 385) O2 SATURATION ARTERIAL (BEAKER) 98.5 % 96.0-97.0 H (test code = 386) HCO3 ARTERIAL (BEAKER) (test code 18 mmol/L 21-29 L = 388) BASE EXCESS ARTERIAL (BEAKER) -7.2 mmol/L -2.0-3.0 L (test code = 387) PATIENT TEMPERATURE (BEAKER) 37.2 (test code = 1818) FIO2 (BEAKER) (test code = 1819) 50.0 [id number] 22:42:00 Test Item Value Reference Range Interpretation Comments MAGNESIUM (BEAKER) 2.1 mg/dL 1.6-2.6 Specimen slightly (test code = 627) hemolyzed Digital Content Specialist ID - DBBASIC METABOLIC [id number] 22:42:00 Test Item Value Reference Range Interpretation Comments SODIUM (BEAKER) 140 meq/L 136-145 (test code = 381) POTASSIUM (BEAKER) 4.1 meq/L 3.5-5.1 Specimen slightly (test code = 379) hemolyzed CHLORIDE (BEAKER) 111 meq/L 98-107 H (test code = 382) CO2 (BEAKER) (test 14 meq/L 22-29 L code = 355) BLOOD UREA NITROGEN 17 mg/dL 7-21 (BEAKER) (test code = 354) CREATININE (BEAKER) 1.09 mg/dL 0.57-1.25 Specimen slightly (test code = 358) hemolyzed GLUCOSE RANDOM 244 mg/dL 70-105 H (BEAKER) (test code = 652) CALCIUM (BEAKER) 8.4 mg/dL 8.4-10.2 (test code = 697) EGFR (BEAKER) (test 69 mL/min/1.73 ESTIMA SONIA GFR IS code = 1092) sq m NOT ACCURATE CREATININE CLEARANCE IN PREDICTING GLOMERULAR FILTRATION RATE . ESTIMATED GFR I S NOT APPLICABLE FOR DIALYSIS PATIEN TS. Digital Content Specialist ID - DBSpecimen slightly ictericLACTIC ACID, [id number] 21:57:00 Test Item Value Reference Range Interpretation Comments LACTATE BLOOD 12.2 mmol/L 0.5-2.2 HH Specimen sligh tly ARTERIAL (2) (BEAKER) hemoly zed (test code = 2874) Digital Content Specialist ID - EDASICALCIUM, [id number] 21:22:00 Test Item Value Reference Range Interpretation Comments CALCIUM IONIZED (BEAKER) (test 1.15 mmol/L 1.12-1.27 code = 698) PH, BLOOD (BEAKER) (test code = 7.27 1810) Hepatic function [id number] 21:00:00 Test Item Value Reference Range Interpretation Comments Protein, Total (test 4.5 See_Comment L Specime n slightly code = 2885-2) hemolyzed [Automated message] The system which generated this result transmit sonia reference range : 6.0 - 8.3 gm/dL . The reference range was not u sed to interpret th is result as normal/abnormal . Albumin (test code = 2.5 g/dL 3.5-5 L Specime n slightly 56909-4) hemolyzed Total Bilirubin (test 1.9 mg/dL 0.2-1.2 H Specim en slightly code = 1975-2) hemolyzed Bilirubin, Direct 0.6 mg/dL 0.1-0.5 H Specimen s lightly (test code = 1967-7) hemolyz ed Alkaline Phosphatase 38 U/L 40-150 L (test code = 6768-6) AST (test code = 363 U/L 5-34 H Specimen sl ightly 1920-8) hemolyzed ALT (test code = 62 U/L 6-55 H Specimen sl ightly 1742-6) hemolyzed CYNDEE (test code = CYNDEE) Digital Content Specialist ID - DB Lab Interpretation Abnormal (test code = 91448-1) [facility] [id number] 21:00:00 Test Item Value Reference Range Interpretation Comments % Neutros (test code = 91 % 2816) % Lymphs (test code = 4 % 2817) % Monos (test code = 4 % 2818) % Promyelo (test code = 1 % 0-0 H 2825) # Neutros (test code = 19.93 K/ul 1.78-5.38 H 2830) # Lymphs (test code = 0.88 K/ul 1.32-3.57 L 2831) # Monos (test code = 0.88 K/uL 0.3-0.82 H 2832) # Promyelo (test code = 0.22 K/uL 0-0 H 2838) Total Counted (test code 100 = 1351) RBC Morphology (test code Normal = 762) WBC Morphology (test code Normal = 487) Giant Platelet (test code Present = 313) Artifact (test code = Present 3432) Platelet Conc (test code Decreased = 3438) CYNDEE (test code = CYNDEE) Digital Content Specialist ID - Dana Chapman comments: Slide comments: Lab Interpretation (test Abnormal code = 16570-6) [facility](CELLAVISION MANUAL DIFF)2020-08-14 21:00:00 Test Item Value Reference Range Interpretation Comments NEUTROPHILS - REL 91 % (CELLAVISION)(BEAKER) (test code = 2816) LYMPHOCYTES - REL 4 % (CELLAVISION)(BEAKER) (test code = 2817) MONOCYTES - REL 4 % (CELLAVISION)(BEAKER) (test code = 2818) PROMYELOCYTES - REL 1 % 0-0 H (CELLAVSION)(BEAKER) (test code = 2825) NEUTROPHILS - ABS 19.93 K/ul 1.78-5.38 H (CELLAVISION)(BEAKER) (test code = 2830) LYMPHOCYTES - ABS 0.88 K/ul 1.32-3.57 L (CELLAVISION)(BEAKER) (test code = 2831) MONOCYTES - ABS 0.88 K/uL 0.30-0.82 H (CELLAVISION)(BEAKER) (test code = 2832) PROMYELOCYTES - ABS 0.22 K/uL 0.00-0.00 H (CELLAVISION)(BEAKER) (test code = 2838) TOTAL COUNTED (BEAKER) (test code 100 = 1351) RBC MORPHOLOGY (BEAKER) (test code Normal = 762) WBC MORPHOLOGY (BEAKER) (test code Normal = 487) GIANT PLATELETS (BEAKER) (test Present code = 313) ARTIFACT (CELLAVISION)(BEAKER) Present (test code = 3432) PLATELET CONCENTRATION Decreased (CELLAVISION)(BEAKER) (test code = 3438) Digital Content Specialist ID - Dana Chapman comments: Slide comments:[id number] 21:00:00 Test Item Value Reference Range Interpretation Comments PHOSPHORUS (BEAKER) 3.6 mg/dL 2.3-4.7 Specimen slightly (test code = 604) hemolyzed Digital Content Specialist ID - DBHEPATIC FUNCTION [id number] 21:00:00 Test Item Value Reference Range Interpretation Comments TOTAL PROTEIN (BEAKER) 4.5 gm/dL 6.0-8.3 L Speci men slightly (test code = 770) hemolyzed ALBUMIN (BEAKER) (test 2.5 g/dL 3.5-5.0 L Speci men slightly code = 1145) hemolyzed BILIRUBIN TOTAL 1.9 mg/dL 0.2-1.2 H Specimen sli ghtly (BEAKER) (test code = hemoly zed 377) BILIRUBIN DIRECT 0.6 mg/dL 0.1-0.5 H Specimen sl ightly (BEAKER) (test code = hemoly zed 706) ALKALINE PHOSPHATASE 38 U/L 40-150 L (BEAKER) (test code = 346) AST (SGOT) (BEAKER) 363 U/L 5-34 H Specimen slightly (test code = 353) hemolyzed ALT (SGPT) (BEAKER) 62 U/L 6-55 H Specimen slightly (test code = 347) hemolyzed Digital Content Specialist ID - DBCBC W/PLT COUNT & AUTO [id number] 20:33:00 Test Item Value Reference Range Interpretation Comments WHITE BLOOD CELL COUNT (BEAKER) 21.9 K/ L 3.5-10.5 H (test code = 775) RED BLOOD CELL COUNT (BEAKER) 3.51 M/ L 4.63-6.08 L (test code = 761) HEMOGLOBIN (BEAKER) (test code = 11.4 GM/DL 13.7-17.5 L 410) HEMATOCRIT (BEAKER) (test code = 34.0 % 40.1-51.0 L 411) MEAN CORPUSCULAR VOLUME (BEAKER) 96.9 fL 79.0-92.2 H (test code = 753) MEAN CORPUSCULAR HEMOGLOBIN 32.5 pg 25.7-32.2 H (BEAKER) (test code = 751) MEAN CORPUSCULAR HEMOGLOBIN CONC 33.5 GM/DL 32.3-36.5 (BEAKER) (test code = 752) RED CELL DISTRIBUTION WIDTH 13.0 % 11.6-14.4 (BEAKER) (test code = 412) PLATELET COUNT (BEAKER) (test 145 K/CU MM 150-450 L code = 756) MEAN PLATELET VOLUME (BEAKER) 10.1 fL 9.4-12.4 (test code = 754) NUCLEATED RED BLOOD CELLS 0 /100 WBC 0-0 (BEAKER) (test code = 413) BLOOD GAS, [id number] 20:30:00 Test Item Value Reference Range Interpretation Comments PH ARTERIAL (BEAKER) (test code = 7.28 7.35-7.45 L 383) PCO2 ARTERIAL (BEAKER) (test code 35 mm Hg 35-45 = 384) PO2 ARTERIAL (BEAKER) (test code 105 mm Hg 80-90 H = 385) O2 SATURATION ARTERIAL (BEAKER) 97.2 % 96.0-97.0 H (test code = 386) HCO3 ARTERIAL (BEAKER) (test code 16 mmol/L 21-29 L = 388) BASE EXCESS ARTERIAL (BEAKER) -9.9 mmol/L -2.0-3.0 L (test code = 387) PATIENT TEMPERATURE (BEAKER) 37.2 (test code = 1818) FIO2 (BEAKER) (test code = 1819) 50.0 RAD, CHEST, 1 VIEW, NON [id number] 19:46:00Reason for exam:->[facility] 1960 Sex: MFINAL REPORT CLINICAL INDICATION: ET tube placement Comparison: Same dated 1824 hours The tip of an endotracheal tube is 4.6 cm above the mateus. An enteric tube has beenadvanced and now traverses examination to the upper abdomen. The examination is otherwise stable. Signed: [facility] Verified Date/Time: 08/14/2020 19:46:41 RAD, CHEST, 1 VIEW, NON [id number] 19:29:00Reason for exam:->et tueb advancement [facility] : 1960 Sex: MFINAL REPORT CLINICAL INDICATION: Endotracheal tube advancement Comparison: Same dated 1820 hours The tip of an endotracheal tube is in position 6.1 cm above the mateus at the level of the midclavicular heads. The tip of an enteric tube is in the distal esophagus. Advancement may be in order. The examination is otherwise stable. Signed: Jimmie Carnes MDReport Verified Da te/Time: 08/14/2020 19:29:56 RAD, CHEST, 1 VIEW, NON [id number] 19:26:00Reason for exam:->Post surgreyShould this be performed at the bedside?->Yes [facility] 1960 Sex: MFINAL REPORT History: Postop. Comparison: 08/13/2020 Findings: A single view of the chest is submitted. There is been interval median sternotomy. The cardiac silhouette iswithin normal limits for size. Slight widening of the superior mediastinal contour may relate to lowlung volumes and supine positioning or a small new central fluid collection. Attention on follow-up. The lung volumes are low. There is mild central vascular prominence and perihilar interstitial and airspace opacity, suggesting some combination of atelectasis and edema. Pneumonitis should be excluded clinically. There is no pneumothorax or large pleural collection. The tip of an endotracheal tubeis in position above the mateus at the level of the superior clavicular heads. A radiopaque tip of an IABP is 3 cm caudal to the expected position of the superior margin of the aortic arch. A right IJ PA catheter tip overlies the proximal right pulmonary artery. A mediastinal drain and left chest tubeare in place. The tip of an enteric tube overlies the distal esophagus. Advancement may be in order.Signed: Jimmie Carnes MDReport Verified Date/Time: 08/14/2020 19:26:52 LACTIC ACID, [id number] 18:46:00 Test Item Value Reference Range Interpretation Comments LACTATE BLOOD 4.5 mmol/L 0.5-2.2 HH Specimen sligh tly ARTERIAL (2) (BEAKER) hemoly zed (test code = 2874) Digital Content Specialist ID - EDASICOMPREHENSIVE METABOLIC [id number] 18:41:00 Test Item Value Reference Range Interpretation Comments TOTAL PROTEIN 4.6 gm/dL 6.0-8.3 L Specimen sligh tly (BEAKER) (test code = hemoly zed 770) ALBUMIN (BEAKER) 2.5 g/dL 3.5-5.0 L Specimen sl ightly (test code = 1145) hemolyzed ALKALINE PHOSPHATASE 36 U/L 40-150 L (BEAKER) (test code = 346) BILIRUBIN TOTAL 1.6 mg/dL 0.2-1.2 H Specimen sli ghtly (BEAKER) (test code = hemoly zed 377) SODIUM (BEAKER) (test 142 meq/L 136-145 code = 381) POTASSIUM (BEAKER) 4.3 meq/L 3.5-5.1 Specimen slightly (test code = 379) hemolyzed CHLORIDE (BEAKER) 113 meq/L 98-107 H (test code = 382) CO2 (BEAKER) (test 23 meq/L 22-29 code = 355) BLOOD UREA NITROGEN 15 mg/dL 7-21 (BEAKER) (test code = 354) CREATININE (BEAKER) 0.91 mg/dL 0.57-1.25 Specimen slightly (test code = 358) hemolyzed GLUCOSE RANDOM 207 mg/dL 70-105 H (BEAKER) (test code = 652) CALCIUM (BEAKER) 7.4 mg/dL 8.4-10.2 L (test code = 697) AST (SGOT) (BEAKER) 399 U/L 5-34 H Specimen slightly (test code = 353) hemolyzed ALT (SGPT) (BEAKER) 65 U/L 6-55 H Specimen slightly (test code = 347) hemolyzed EGFR (BEAKER) (test 84 mL/min/1.73 ESTIMA SONIA GFR IS code = 1092) sq m NOT ACCURATE CREATININE CLEARANCE IN PREDICTING GLOMERULAR FILTRATION RATE . ESTIMATED GFR I S NOT APPLICABLE FOR DIALYSIS PATIEN TS. Digital Content Specialist ID - [id number] 18:40:00 Test Item Value Reference Range Interpretation Comments MAGNESIUM (BEAKER) 1.9 mg/dL 1.6-2.6 Specimen slightly (test code = 627) hemolyzed Digital Content Specialist ID - [id number] 18:40:00 Test Item Value Reference Range Interpretation Comments PHOSPHORUS (BEAKER) 3.7 mg/dL 2.3-4.7 Specimen slightly (test code = 604) hemolyzed Digital Content Specialist ID - [id number] 18:30:00 Test Item Value Reference Range Interpretation Comments Fibrinogen (test code = 3255-7) 276 mg/dl 225-434 Lab Interpretation (test code = Normal 44672-3) [id number] 18:30:00 Test Item Value Reference Range Interpretation Comments PTT (test code = 87508-6) 27.5 See_Comment [ Automated message] The system [employer] generated this result transmitted ref erence range: 22.5 - 3 6.0 seconds. The re ference range was not u sed to interpret this result as normal/abnor mal. Lab Interpretation (test Normal code = 83907-3) [id number] 18:30:00 Test Item Value Reference Range Interpretation Comments FIBRINOGEN LEVEL (BEAKER) (test 276 mg/dl 225-434 code = 658) [id number] 18:30:00 Test Item Value Reference Range Interpretation Comments PARTIAL THROMBOPLASTIN TIME 27.5 seconds 22.5-36.0 (BEAKER) (test code = 760) Prothrombin time/[id number] 18:29:00 Test Item Value Reference Interpretation Comments Range Protime (test code = 18.2 See_Comment H [Autom ated 5902-2) message] The system which generated this result transmitted reference range : 11.9 - 14.2 seconds. The reference range was not used to interpret this result as normal/abnormal . INR (test code = 1.55 See_Comment [Automated 0511-6) message] The system which generated this result transmitted reference range : <=5.90. The reference range was not used to interpret this result as normal/abnormal . CYNDEE (test code = RECOMMENDED CYNDEE) COUMADIN/WARFARIN INR THERAPY RANGESSTANDARD DOSE: 2.0 - 3.0 Includes: PROPHYLAXIS for venous thrombosis, systemic embolization; TREATMENT for venous thrombosis and/or pulmonary embolus.HIGH RISK: Target INR is 2.5-3.5 for patients with mechanical heart valves. Lab Interpretation Abnormal (test code = 20184-6) [facility] HospitalPROTHROMBIN TIME/[id number] 18:29:00 Test Item Value Reference Range Interpretation Comments PROTIME (BEAKER) 18.2 seconds 11.9-14.2 H (test code = 759) INR (BEAKER) (test 1.55 See_Comment [Automat ed message] code = 370) The system [employer] h generated this result transmitted ref erence range: <=5.90. The reference range was not used to int erpret this result as normal/abnormal . RECOMMENDED COUMADIN/WARFARIN INR THERAPY RANGESSTANDARD DOSE: 2.0 - 3.0 Includes: PROPHYLAXIS forvenous thrombosis, systemic embolization; TREATMENT for venous thrombosis and/or pulmonary embolus.HIGH RISK: Target INR is 2.5-3.5 for patients with mechanical heart valves.CBC (HEMOGRAM ONLY)2020-08-14 18:28:00 Test Item Value Reference Range Interpretation Comments WHITE BLOOD CELL COUNT (BEAKER) 21.3 K/ L 3.5-10.5 H (test code = 775) RED BLOOD CELL COUNT (BEAKER) 3.67 M/ L 4.63-6.08 L (test code = 761) HEMOGLOBIN (BEAKER) (test code = 12.0 GM/DL 13.7-17.5 L 410) HEMATOCRIT (BEAKER) (test code = 36.1 % 40.1-51.0 L 411) MEAN CORPUSCULAR VOLUME (BEAKER) 98.4 fL 79.0-92.2 H (test code = 753) MEAN CORPUSCULAR HEMOGLOBIN 32.7 pg 25.7-32.2 H (BEAKER) (test code = 751) MEAN CORPUSCULAR HEMOGLOBIN CONC 33.2 GM/DL 32.3-36.5 (BEAKER) (test code = 752) RED CELL DISTRIBUTION WIDTH 12.7 % 11.6-14.4 (BEAKER) (test code = 412) PLATELET COUNT (BEAKER) (test 133 K/CU MM 150-450 L code = 756) MEAN PLATELET VOLUME (BEAKER) 9.9 fL 9.4-12.4 (test code = 754) NUCLEATED RED BLOOD CELLS 0 /100 WBC 0-0 (BEAKER) (test code = 413) CALCIUM, [id number] 18:21:00 Test Item Value Reference Range Interpretation Comments CALCIUM IONIZED (BEAKER) (test 1.08 mmol/L 1.12-1.27 L code = 698) PH, BLOOD (BEAKER) (test code = 7.34 1810) OXYGEN SATURATION, [id number] 18:20:00 Test Item Value Reference Range Interpretation Comments O2 SATURATION (MEASURED) (BEAKER) 73.2 % (test code = 1455) BLOOD GAS, [id number] 18:20:00 Test Item Value Reference Range Interpretation Comments PH ARTERIAL (BEAKER) (test code = 7.34 7.35-7.45 L 383) PCO2 ARTERIAL (BEAKER) (test code 40 mm Hg 35-45 = 384) PO2 ARTERIAL (BEAKER) (test code 90 mm Hg 80-90 = 385) O2 SATURATION ARTERIAL (BEAKER) 97.0 % 96.0-97.0 (test code = 386) HCO3 ARTERIAL (BEAKER) (test code 22 mmol/L 21-29 = 388) BASE EXCESS ARTERIAL (BEAKER) -4.5 mmol/L -2.0-3.0 L (test code = 387) PATIENT TEMPERATURE (BEAKER) 35.6 (test code = 1818) FIO2 (BEAKER) (test code = 1819) 60.0 GLUCOSE-STAT [id number] 18:20:00 Test Item Value Reference Range Interpretation Comments GLUCOSE RANDOM (BEAKER) (test code 203 mg/dL 70-110 H = 652) HGB/HCT (H&H) - STAT [id number] 18:20:00 Test Item Value Reference Range Interpretation Comments HEMOGLOBIN (BEAKER) (test code = 12.7 GM/DL 13.0-16.8 L 410) HEMATOCRIT (BEAKER) (test code = 37.0 % 40.0-50.0 L 411) SODIUM NA-STAT [id number] 18:19:00 Test Item Value Reference Range Interpretation Comments SODIUM (BEAKER) (test code = 381) 139 meq/L 136-145 POTASSIUM-STAT [id number] 18:19:00 Test Item Value Reference Range Interpretation Comments POTASSIUM (BEAKER) (test code = 4.0 meq/L 3.6-5.5 379) Prepare [id number] 18:02:00 Test Item Value Reference Range Interpretation Comments CROSSMATCH (test code = COMPATIBLE 2264) Unit ABO (test code = A Pos [id number]) UNIT NUMBER (test code = [id number] 934-0) Status (test code = RETURNED FROM ISSUE [id number]) Blood Bank Product (test RED BLOOD CELLS code = 2263) PRODUCT CODE (test code = L7246K87 933-2) [facility] ACTIVATED CLOTTING [id number] 17:29:00 Test Item Value Reference Range Interpretation Comments Activated Clotting Time 109 sec : 74 -137 seconds, (test code = 441) Baseline: TESTED AT [facility] [address] [facility] [place], [address]: Digital Content Specialist/Techni ena ID = [id number] for CHEMA LOVING [id number] 17:29:00 Test Item Value Reference Range Interpretation Comments ACTIVATED CLOTTING TIME 109 sec : 74 -137 seconds, (BEAKER) (test code = Baseli ne: TESTED AT 441) [address], [facility] 30: Digital Content Specialist/Techni ena ID = [id number] for DUDLEY RSHMAN, CHEMA [id number] 17:29:00 Test Item Value Reference Range Interpretation Comments ACTIVATED CLOTTING TIME 576 sec : 74 -137 seconds, (BEAKER) (test code = Baseli ne: TESTED AT 441) [address], [facility] 30: Digital Content Specialist/Techni ena ID = [id number] for DUDLEY RSHMAN, CHEMA [id number] 17:29:00 Test Item Value Reference Range Interpretation Comments ACTIVATED CLOTTING TIME 560 sec : 74 -137 seconds, (BEAKER) (test code = Baseli ne: TESTED AT 441) [address], [facility] 30: Digital Content Specialist/Techni ena ID = [id number] for DUDLEY RSHMAN, CHEMA [id number] 17:29:00 Test Item Value Reference Range Interpretation Comments ACTIVATED CLOTTING TIME 626 sec : 74 -137 seconds, (BEAKER) (test code = Baseli ne: TESTED AT 441) [address], [facility] 30: Digital Content Specialist/Techni ena ID = [id number] for DUDLEY RSHMAN, CHEMA [id number] 17:29:00 Test Item Value Reference Range Interpretation Comments ACTIVATED CLOTTING TIME 731 sec : 74 -137 seconds, (BEAKER) (test code = Baseli ne: TESTED AT 441) [address], [facility] 30: Digital Content Specialist/Techni ena ID = [id number] for DUDLEY RSHMAN, CHEMA [id number] 17:29:00 Test Item Value Reference Range Interpretation Comments ACTIVATED CLOTTING TIME 808 sec : 74 -137 seconds, (BEAKER) (test code = Baseli ne: TESTED AT 441) [address], [facility] 30: Digital Content Specialist/Techni ena ID = [id number] for DUDLEY RSHMAN, CHEMA [id number] 17:28:00 Test Item Value Reference Range Interpretation Comments ACTIVATED CLOTTING TIME 709 sec : 74 -137 seconds, (BEAKER) (test code = James ne: TESTED AT 441) [facility] [address] [place], [address]: Digital Content Specialist/Techni ena ID = [id number] for CHEMA LOVING Thromboelastograph (TEG)2020-08-14 17:15:00 Test Item Value Reference Range Interpretation Comments TEG Activated Clotting 7.9 See_Comment H [Aut omated message] Time (test code = The system which 49106-8) generated this result transmitted ref erence range: 4.0 - 7. 0 minutes. The reference range was not used to int erpret this result as normal/abnormal . TEG Fibrinogen Activity 64.0 See_Comment [Au tomated message] (test code = 43104-1) The sy stem which generated this result transmitted ref erence range: 61.0 - 7 3.0 degrees. The reference range was not used to int erpret this result as normal/abnormal . TEG Platelet Aggregation 61.5 See_Comment [A utomated message] (test code = 31465-3) The sy stem which generated this result transmitted ref erence range: 55.0 - 6 5.0 MM. The referen ce range was not u sed to interpret this result as normal/abnor mal. TEG-H Activated Clotting 8.9 See_Comment H [A utomated message] Time (test code = 1411) The system which generated this result transmitted ref erence range: 4.0 - 7. 0 minutes. The reference range was not used to int erpret this result as normal/abnormal . TEG-H Fibrinogen 59.6 See_Comment L [Automated message] Activity (test code = The sy stem which 1412) generated this result transmitted ref erence range: 61.0 - 7 3.0 degrees. The reference range was not used to int erpret this result as normal/abnormal . TEG-H Platelet 60.9 See_Comment [Automated m essage] Aggregation (test code = The system which 1413) generated this result transmitted ref erence range: 55.0 - 6 5.0 MM. The referen ce range was not u sed to interpret this result as normal/abnor mal. Lab Interpretation (test Abnormal code = 54953-8) [facility]ROMBO[facility]ASTO[facility]APH ([facility]G)2020-08-14 17:15:00 Test Item Value Reference Range Interpretation Comments TEG ACTIVATED CLOTTING TIME 7.9 minutes 4.0-7.0 H (BEAKER) (test code = 1407) TEG FIBRINOGEN ACTIVITY (BEAKER) 64.0 degrees 61.0-73.0 (test code = 1408) TEG PLT. AGGREGATION (BEAKER) 61.5 MM 55.0-65.0 (test code = 1409) [facility] ACTIVATED CLOTTING TIME 8.9 minutes 4.0-7.0 H (BEAKER) (test code = 1411) [facility] FIBRINOGEN ACTIVITY (BEAKER) 59.6 degrees 61.0-73.0 L (test code = 1412) [facility] PLT. AGGREGATION (BEAKER) 60.9 MM 55.0-65.0 (test code = 1413) [id number] 17:01:00 Test Item Value Reference Range Interpretation Comments FIBRINOGEN LEVEL (BEAKER) (test 252 mg/dl 225-434 code = 658) [id number] 17:01:00 Test Item Value Reference Range Interpretation Comments PARTIAL THROMBOPLASTIN TIME 28.4 seconds 22.5-36.0 (BEAKER) (test code = 760) PROTHROMBIN TIME/[id number] 17:00:00 Test Item Value Reference Range Interpretation Comments PROTIME (BEAKER) 19.0 seconds 11.9-14.2 H (test code = 759) INR (BEAKER) (test 1.64 See_Comment [Automat ed message] code = 370) The system [employer] generated this result transmitted ref erence range: <=5.90. The reference range was not used to int erpret this result as normal/abnormal . RECOMMENDED COUMADIN/WARFARIN INR THERAPY RANGESSTANDARD DOSE: 2.0 - 3.0 Includes: PROPHYLAXIS forvenous thrombosis, systemic embolization; TREATMENT for venous thrombosis and/or pulmonary embolus.HIGH RISK: Target INR is 2.5-3.5 for patients with mechanical heart valves.Platelet [id number] 16:56:00 Test Item Value Reference Range Interpretation Comments Platelets (test code 110 See_Comment L [Autom ated = 777-3) message] The system which generated this result transmit sonia reference range : 150 - 450 K/CU MM. The reference range was not u sed to interpret th is result as normal/abnormal . CYNDEE (test code = CYNDEE) Digital Content Specialist ID - [id number] ID - [id number] Lab Interpretation Abnormal (test code = 29026-1) [facility]ATE[facility] [id number] 16:56:00 Test Item Value Reference Range Interpretation Comments PLATELET COUNT (BEAKER) (test 110 K/CU MM 150-450 L code = 756) Digital Content Specialist ID - [id number] ID - [id number] NA-STAT [id number] 16:28:00 Test Item Value Reference Range Interpretation Comments SODIUM (BEAKER) (test code = 381) 136 meq/L 136-145 POTASSIUM-STAT [id number] 16:28:00 Test Item Value Reference Range Interpretation Comments POTASSIUM (BEAKER) (test code = 4.3 meq/L 3.6-5.5 379) BLOOD GAS, [id number] 16:28:00 Test Item Value Reference Range Interpretation Comments PH ARTERIAL (BEAKER) (test code = 7.38 7.35-7.45 383) PCO2 ARTERIAL (BEAKER) (test code 41 mm Hg 35-45 = 384) PO2 ARTERIAL (BEAKER) (test code 114 mm Hg 80-90 H = 385) O2 SATURATION ARTERIAL (BEAKER) 98.2 % 96.0-97.0 H (test code = 386) HCO3 ARTERIAL (BEAKER) (test code 24 mmol/L 21-29 = 388) BASE EXCESS ARTERIAL (BEAKER) -1.7 mmol/L -2.0-3.0 (test code = 387) PATIENT TEMPERATURE (BEAKER) 36.6 (test code = 1818) FIO2 (BEAKER) (test code = 1819) 100.0 GLUCOSE-STAT [id number] 16:28:00 Test Item Value Reference Range Interpretation Comments GLUCOSE RANDOM (BEAKER) (test code 204 mg/dL 70-110 H = 652) HGB/HCT (H&H) - STAT [id number] 16:28:00 Test Item Value Reference Range Interpretation Comments HEMOGLOBIN (BEAKER) (test code = 11.0 GM/DL 13.0-16.8 L 410) HEMATOCRIT (BEAKER) (test code = 32.0 % 40.0-50.0 L 411) CALCIUM, [id number] 16:28:00 Test Item Value Reference Range Interpretation Comments CALCIUM IONIZED (BEAKER) (test 1.00 mmol/L 1.12-1.27 L code = 698) PH, BLOOD (BEAKER) (test code = 7.38 1810) SODIUM NA-STAT [id number] 16:01:00 Test Item Value Reference Range Interpretation Comments SODIUM (BEAKER) (test code = 381) 136 meq/L 136-145 POTASSIUM-STAT [id number] 16:01:00 Test Item Value Reference Range Interpretation Comments POTASSIUM (BEAKER) (test code = 5.2 meq/L 3.6-5.5 379) BLOOD GAS, [id number] 16:01:00 Test Item Value Reference Range Interpretation Comments PH ARTERIAL (BEAKER) (test code = 7.35 7.35-7.45 383) PCO2 ARTERIAL (BEAKER) (test code 47 mm Hg 35-45 H = 384) PO2 ARTERIAL (BEAKER) (test code 352 mm Hg 80-90 H = 385) O2 SATURATION ARTERIAL (BEAKER) 99.7 % 96.0-97.0 H (test code = 386) HCO3 ARTERIAL (BEAKER) (test code 26 mmol/L 21-29 = 388) BASE EXCESS ARTERIAL (BEAKER) -0.2 mmol/L -2.0-3.0 (test code = 387) PATIENT TEMPERATURE (BEAKER) 37.0 (test code = 1818) FIO2 (BEAKER) (test code = 1819) 85.0 GLUCOSE-STAT [id number] 16:01:00 Test Item Value Reference Range Interpretation Comments GLUCOSE RANDOM (BEAKER) (test code 212 mg/dL 70-110 H = 652) HGB/HCT (H&H) - STAT [id number] 16:01:00 Test Item Value Reference Range Interpretation Comments HEMOGLOBIN (BEAKER) (test code = 10.5 GM/DL 13.0-16.8 L 410) HEMATOCRIT (BEAKER) (test code = 31.0 % 40.0-50.0 L 411) BLOOD GAS, [id number] 15:45:00 Test Item Value Reference Range Interpretation Comments PH ARTERIAL (BEAKER) (test code = 7.36 7.35-7.45 383) PCO2 ARTERIAL (BEAKER) (test code 46 mm Hg 35-45 H = 384) PO2 ARTERIAL (BEAKER) (test code 311 mm Hg 80-90 H = 385) O2 SATURATION ARTERIAL (BEAKER) 99.7 % 96.0-97.0 H (test code = 386) HCO3 ARTERIAL (BEAKER) (test code 26 mmol/L 21-29 = 388) BASE EXCESS ARTERIAL (BEAKER) -0.2 mmol/L -2.0-3.0 (test code = 387) PATIENT TEMPERATURE (BEAKER) 37.0 (test code = 1818) FIO2 (BEAKER) (test code = 1819) 86.0 SODIUM NA-STAT [id number] 15:45:00 Test Item Value Reference Range Interpretation Comments SODIUM (BEAKER) (test code = 381) 134 meq/L 136-145 L GLUCOSE-STAT [id number] 15:45:00 Test Item Value Reference Range Interpretation Comments GLUCOSE RANDOM (BEAKER) (test code 229 mg/dL 70-110 H = 652) HGB/HCT (H&H) - STAT [id number] 15:45:00 Test Item Value Reference Range Interpretation Comments HEMOGLOBIN (BEAKER) (test code = 9.8 GM/DL 13.0-16.8 L 410) HEMATOCRIT (BEAKER) (test code = 29.0 % 40.0-50.0 L 411) Blood gas, [id number] 15:44:00 Test Item Value Reference Range Interpretation Comments pH, Polo (test code = 7.34 7.32-7.42 2746-6) pCO2, Polo (test code = 49 See_Comment [Aut omated 095) message] The sy stem which generated this result transmitted reference range : 41 - 51 mm Hg. The reference range was not used to interpret this result as normal/abnormal . pO2, Polo (test code = 43 See_Comment H [Auto mated 8085-2) message] The sy stem which generated this result transmitted reference range : 25 - 40 mm Hg. The reference range was not used to interpret this result as normal/abnormal . O2 Sat, Polo (test code 74.6 % 40-70 H = 2711-0) HCO3, Polo (test code = 26 mmol/L 21-29 32418-2) Base Excess, Polo (test -0.3 mmol/L -2-3 code = 1927-3) Patient Temperature 37.1 (test code = 8310-5) FIO2 (test code = 1819) 86 Lab Interpretation Abnormal (test code = 60119-3) [facility], [id number] 15:44:00 Test Item Value Reference Range Interpretation Comments PH VENOUS (BEAKER) (test code = 7.34 7.32-7.42 701) PCO2 VENOUS (BEAKER) (test code = 49 mm Hg 41-51 755) PO2 VENOUS (BEAKER) (test code = 43 mm Hg 25-40 H 702) O2 SATURATION VENOUS (BEAKER) 74.6 % 40.0-70.0 H (test code = 703) HCO3 VENOUS (BEAKER) (test code = 26 mmol/L 29 705) BASE EXCESS VENOUS (BEAKER) (test -0.3 mmol/L -2.0-3.0 code = 704) PATIENT TEMPERATURE (BEAKER) 37.1 (test code = 1818) FIO2 (BEAKER) (test code = 1819) 86.0 POTASSIUM-STAT [id number] 15:44:00 Test Item Value Reference Range Interpretation Comments POTASSIUM (BEAKER) (test code = 5.3 meq/L 3.6-5.5 379) SODIUM NA-STAT [id number] 15:24:00 Test Item Value Reference Range Interpretation Comments SODIUM (BEAKER) (test code = 381) 139 meq/L 136-145 POTASSIUM-STAT [id number] 15:24:00 Test Item Value Reference Range Interpretation Comments POTASSIUM (BEAKER) (test code = 4.2 meq/L 3.6-5.5 379) BLOOD GAS, [id number] 15:24:00 Test Item Value Reference Range Interpretation Comments PH ARTERIAL (BEAKER) (test code = 7.44 7.35-7.45 383) PCO2 ARTERIAL (BEAKER) (test code 43 mm Hg 35-45 = 384) PO2 ARTERIAL (BEAKER) (test code = 249 mm Hg 80-90 H 385) O2 SATURATION ARTERIAL (BEAKER) 99.6 % 96.0-97.0 H (test code = 386) HCO3 ARTERIAL (BEAKER) (test code 29 mmol/L 21-29 = 388) BASE EXCESS ARTERIAL (BEAKER) 4.0 mmol/L -2.0-3.0 H (test code = 387) PATIENT TEMPERATURE (BEAKER) (test 36.5 code = 1818) FIO2 (BEAKER) (test code = 1819) 70.0 GLUCOSE-STAT [id number] 15:24:00 Test Item Value Reference Range Interpretation Comments GLUCOSE RANDOM (BEAKER) (test code 195 mg/dL 70-110 H = 652) HGB/HCT (H&H) - STAT [id number] 15:24:00 Test Item Value Reference Range Interpretation Comments HEMOGLOBIN (BEAKER) (test code = 9.3 GM/DL 13.0-16.8 L 410) HEMATOCRIT (BEAKER) (test code = 27.0 % 40.0-50.0 L 411) BLOOD GAS, [id number] 15:09:00 Test Item Value Reference Range Interpretation Comments PH ARTERIAL (BEAKER) (test code = 7.44 7.35-7.45 383) PCO2 ARTERIAL (BEAKER) (test code 39 mm Hg 35-45 = 384) PO2 ARTERIAL (BEAKER) (test code = 320 mm Hg 80-90 H 385) O2 SATURATION ARTERIAL (BEAKER) 99.7 % 96.0-97.0 H (test code = 386) HCO3 ARTERIAL (BEAKER) (test code 26 mmol/L 21-29 = 388) BASE EXCESS ARTERIAL (BEAKER) 1.3 mmol/L -2.0-3.0 (test code = 387) PATIENT TEMPERATURE (BEAKER) (test 34.4 code = 1818) FIO2 (BEAKER) (test code = 1819) 70.0 GLUCOSE-STAT [id number] 15:09:00 Test Item Value Reference Range Interpretation Comments GLUCOSE RANDOM (BEAKER) (test code 207 mg/dL 70-110 H = 652) HGB/HCT (H&H) - STAT [id number] 15:09:00 Test Item Value Reference Range Interpretation Comments HEMOGLOBIN (BEAKER) (test code = 10.6 GM/DL 13.0-16.8 L 410) HEMATOCRIT (BEAKER) (test code = 31.0 % 40.0-50.0 L 411) SODIUM NA-STAT [id number] 15:07:00 Test Item Value Reference Range Interpretation Comments SODIUM (BEAKER) (test code = 381) 136 meq/L 136-145 POTASSIUM-STAT [id number] 15:07:00 Test Item Value Reference Range Interpretation Comments POTASSIUM (BEAKER) (test code = 4.7 meq/L 3.6-5.5 379) BLOOD GAS, [id number] 14:58:00 Test Item Value Reference Range Interpretation Comments PH ARTERIAL (BEAKER) (test code = 7.38 7.35-7.45 383) PCO2 ARTERIAL (BEAKER) (test code 41 mm Hg 35-45 = 384) PO2 ARTERIAL (BEAKER) (test code 357 mm Hg 80-90 H = 385) O2 SATURATION ARTERIAL (BEAKER) 99.8 % 96.0-97.0 H (test code = 386) HCO3 ARTERIAL (BEAKER) (test code 24 mmol/L 21-29 = 388) BASE EXCESS ARTERIAL (BEAKER) -1.6 mmol/L -2.0-3.0 (test code = 387) PATIENT TEMPERATURE (BEAKER) 35.8 (test code = 1818) FIO2 (BEAKER) (test code = 1819) 80.0 GLUCOSE-STAT [id number] 14:58:00 Test Item Value Reference Range Interpretation Comments GLUCOSE RANDOM (BEAKER) (test code 159 mg/dL 70-110 H = 652) HGB/HCT (H&H) - STAT [id number] 14:58:00 Test Item Value Reference Range Interpretation Comments HEMOGLOBIN (BEAKER) (test code = 11.3 GM/DL 13.0-16.8 L 410) HEMATOCRIT (BEAKER) (test code = 33.0 % 40.0-50.0 L 411) SODIUM NA-STAT [id number] 14:43:00 Test Item Value Reference Range Interpretation Comments SODIUM (BEAKER) (test code = 381) 135 meq/L 136-145 L POTASSIUM-STAT [id number] 14:43:00 Test Item Value Reference Range Interpretation Comments POTASSIUM (BEAKER) (test code = 3.8 meq/L 3.6-5.5 379) 2D Echo W/Doppler(CW/PW/Color)2020-08-14 13:21:00Ejection FractionSLEH ECHO HEARTLAB MKCKESSON CPACSInterface, External Ris In - 08/14/2020 1:21 PM C DTTransthoracic Echocardiography Report (TTE) Demographics Patient Name PACO MONTOYA Date of Study 08/14/2020 Gender Male Visit Number [id number] Race Unknown Room [id number] Number Date of 1960 Referring Physician Paige Hendricks MD Age 60 year(s) Haunted History Tour Guide Franko Mays Janitorial Account Manager Mary Parham, Interpreting Jun Puente MD [facility] Physician Procedure Type of StudyTTE procedure:2DECHO W DOPPLER(CW/PW/COLOR) (Routine) Indications:Acute Chest Pain/ Suspected CAD.Clinical HistoryHGB 14.7HCT 43.1 %NSTEMIContrast Medium: Definity.Height: 68 inches Weight: 97.98 kg (216 lbs) BSA: 2.11 m^2 BMI: 32.84 kg/m^2HR: 85 bpm BP: 98/71 mmHg Summary 1. Normal LV size. LV function is mildly reduced. LVEF is 40-44% 2. Diastology: Grade 2 diastolic dysfunction 3. Normal RV size. Depressed RV function 4. No significant valvular heart disease 5. Unable to estimate PASP 6. No pericardial effusion Previous Study No prior studies available for comparison. Signature Findings Technical Quality: Technically adequate exam. Left Ventricle LV endocardium is well visualized with IV ultrasound enhancing agent. Mild concentric LV hypertrophy. The following segment(s) appear akinetic: LV apex .The following segments are hypokinetic: mid inferoseptall, All other segments appear low normal contractility. LVEF by Haque'smethod of disk assessment is mildly reduced (40- 44%) . Grade 2 diastolic dysfunction The left ventricle is chamber size (by vol index) is normal (male - LVED vol - 34-74ml/m2). Left Atrium LA is well visualized. LA size is normal (16-34 ml/m2) . Right Ventricle Normal RV size. Depressed RV function Right Atrium RA size is probably normal based on availableviews. Atrial Septum Normal interatrial septum by available views. Aortic Valve Normal AoV structure. No evidence of aortic stenosis. No evidence of aortic regurgitation. Mitral Valve Normal MV structure. No evidence of mitral regurgitation. No evidence of mitral stenosis. Tricuspid Valve TV structure is normal. No evidence of tricuspid regurgitation. Estimated peak systolic PA pressure is cannot be determined due to inadequate TR velocity signal . Pulmonic Valve Normal PV structure and function by limited views and Doppler. Aorta Aortic root size (Sinus of Valsalva diameter) is normal. 3.2 cm Ascending aorta not well visualized. Pericardium No pericardial effusion is visualized. IVC/SVC/PA/PV/Pleural The inferior vena cava size is normal . The estimated RA pressureby IVC dynamics 5-10mmHg . [facility] Circ Support Intra Aortic Balloon Pump (IABP) is present. Chambers/Structures Left Atrium LA Dimension: 4.27 cm LA Area: 18.12 cm^2 LA Volume: 59.7 ml LA Vol. Index: 28 ml/m^2 Left Ventricle LVIDd: 4.83 cm LVEDV:109.23 ml LV Septum Diastolic: 1.06 cm LV Septum Systolic: 1.21 cm LV PW Diastolic: 1.09 cm LV PW Systolic: 1.19 cm LVEDV Haque's:141.79 ml LVEDVI: 67 ml/m^2 LVESV Haque's:88.4 ml LVESVI: 42 ml/m^2 LVEF Haque's: 37.7 % LVOT Jesi meter: 2.05 cm Right Ventricle RVOT VTI: 12.08 cm Aorta Ao Root S of Bev.: 3.2 cm Doppler/Quantitative Measurements Mitral Valve MV Peak E-Wave: 0.95 m/s MV Peak A-Wave: 0.44 m/s E/A Ratio: 2.16 Peak Gradient:3.63 mmHg Deceleration Time: 123.9 msec MV Antoni. Peak: Tissue Doppler E' Lateral Velocity: 0.13 m/s E/E': 7.35 Aortic Valve Peak Velocity: 0.94 m/s Mean Velocity: 0.59 m/s Peak Gradient: 3.54 mmHg Mean Gradient: 1.67 mmHg AV Area (continuity): 2.85 cm^2 AV VTI: 14.26 cm AV DVI: 0.86 LVOT Peak Velocity: 0.76 m/s Peak Gradient: 2.32 mmHg Mean Velocity: 0.48 m/s Mean Gradient: 1.08 mmHg LVOT Diameter: 2.05 cm LVOT VTI: 12.33 cm LVOT Area: 3.3 cm^2 LVOT SV:40.68 ml LVOT CO: 3.46 l/min LVOT CI: 1.64 l/min/m^2[facility] CenterCAL[facility], [id number] 13:00:00 Test Item Value Reference Range Interpretation Comments CALCIUM IONIZED (BEAKER) (test 1.02 mmol/L 1.12-1.27 L code = 698) PH, BLOOD (BEAKER) (test code = 7.43 1810) [id number] 12:59:58Carlos Brower MD 08/14/2020 1:05 PMTEE Date: 08/14/2020 1:00 PM Sex: Male Location: OR Requesting Physician: Renard Flores MD Examiner: Carlos Brower MDRutherford, Lerin Elise Intubated Sedated Patient screened for esoph disease: Yes Insertion: easy Probe Type: multiplane Modalities: 2D, CFM, CWD and PWD Pre Intervention Summary: Aorta: No aneurysm, no dissection, no mobile plaques, IABP adjusted to be at level of subclavianAV: trileaflet morphology, no aortic stenosis, no aortic regurgitationLV: normal chamber size , no LVH, normal systolic function (EF 30% bySimpson's), mid infero, inferoseptal, inferolateral hypokinesis RWMA, no thrombusMV: normal morphology, moderate mitral regurgitation (VC 0.4, ERO 0.43, Reg Vol 44), no mitral stenosis. No evidence of SAMLA: no TIKA thrombus, normal size and functionPV: limited visualizationRV: normal sized chamber, normal function (TAPSE 24), no thrombusTV: normal morphology, trace tricuspid regurgitationRA: no thrombusGrade III diastolic dysfunction No PFO by color dopper flow All findings communicated to surgical team. Post Intervention Summary:[facility]OT[facility] [id number] 12:59:00 Test Item Value Reference Range Interpretation Comments POTASSIUM (BEAKER) (test code = 3.7 meq/L 3.6-5.5 379) HGB/HCT (H&H) - STAT [id number] 12:59:00 Test Item Value Reference Range Interpretation Comments HEMOGLOBIN (BEAKER) (test code = 14.5 GM/DL 13.0-16.8 410) HEMATOCRIT (BEAKER) (test code = 43.0 % 40.0-50.0 411) BLOOD GAS, [id number] 12:59:00 Test Item Value Reference Range Interpretation Comments PH ARTERIAL (BEAKER) (test code = 7.43 7.35-7.45 383) PCO2 ARTERIAL (BEAKER) (test code 35 mm Hg 35-45 = 384) PO2 ARTERIAL (BEAKER) (test code 129 mm Hg 80-90 H = 385) O2 SATURATION ARTERIAL (BEAKER) 98.7 % 96.0-97.0 H (test code = 386) HCO3 ARTERIAL (BEAKER) (test code 23 mmol/L 21-29 = 388) BASE EXCESS ARTERIAL (BEAKER) -0.6 mmol/L -2.0-3.0 (test code = 387) PATIENT TEMPERATURE (BEAKER) 37.0 (test code = 1818) FIO2 (BEAKER) (test code = 1819) 21.0 GLUCOSE-STAT [id number] 12:59:00 Test Item Value Reference Range Interpretation Comments GLUCOSE RANDOM (BEAKER) (test code 129 mg/dL 70-110 H = 652) SODIUM NA-STAT [id number] 12:59:00 Test Item Value Reference Range Interpretation Comments SODIUM (BEAKER) (test code = 381) 136 meq/L 136-145 ABORH, [id number] 09:38:00 Test Item Value Reference Range Interpretation Comments ABO Grouping (test code = 2588) A Rh Factor (test code = 2589) POS [facility] HospitalH[facility] [id number] 08:22:00 Test Item Value Reference Range Interpretation Comments Hemoglobin A1C (test code = 4548-4) 6.1 % 4.3-6.1 Lab Interpretation (test code = Normal 58524-1) [facility] HospitalHEMOGLOBIN [id number] 08:22:00 Test Item Value Reference Range Interpretation Comments HEMOGLOBIN A1C (BEAKER) (test code = 6.1 % 4.3-6.1 368) TSH/Free T4 If [id number] 07:58:00 Test Item Value Reference Range Interpretation Comments TSH (test code = 1.474 See_Comment [Automated 77115-4) message] The system which generated this result transmit sonia reference range : 0.350 - 4.940 uIU/mL. The reference range was not used to interpret this result as normal/abnormal . CYNDEE (test code = CYNDEE) Digital Content Specialist ID - CHLOÉ Lab Interpretation Normal (test code = 24718-7) [facility] HospitalTSH/FREE T4 IF [id number] 07:58:00 Test Item Value Reference Range Interpretation Comments THYROID STIMULATING HORMONE 1.474 uIU/mL 0.350-4.940 (BEAKER) (test code = 772) Digital Content Specialist ID - EDASIHigh Sensitivity Troponin I ([facility]/Rafael Only)2020-08-14 06:48:00 Test Item Value Reference Range Interpretation Comments Troponin I HS >71032 See_Comment HH [Automated (test code = message] The 17304-6) system which generated this result transmitted reference range : <=35 pg/ml. The reference range was not used to interpret this result as normal/abnormal . CYNDEE (test code = Digital Content Specialist ID - CYNDEE) EMMY LThe TRUCK SPOTTER STAT High Sensitivity Troponin-I results should be used in conjunction with other diagnostic information such as ECG, clinical observations and information, and patient symptoms to aid in the diagnosis of ND.Digital Content Specialist ID - EDASI Lab Interpretation Abnormal (test code = 21999-0) [facility] TROPONIN [id number] 06:48:00 Test Item Value Reference Range Interpretation Comments HIGH SENSITIVITY > pg/ml See_Comment HH [Automated message] TROPONIN I (test code = The system which [id number]) generated this result transmitted ref erence range: <=35. Th e reference range was not used to interpr et this result as normal/abnormal . Digital Content Specialist ID - PIAYA LThe TRUCK SPOTTER STAT High Sensitivity Troponin-I results should be used in conjunction with other diagnostic information such as ECG, clinical observations and information, and patient symptoms to aid in the diagnosis of ND.Digital Content Specialist ID - [id number] 06:13:00 Test Item Value Reference Range Interpretation Comments PARTIAL THROMBOPLASTIN TIME 52.3 seconds 22.5-36.0 H (BEAKER) (test code = 760) COMPREHENSIVE METABOLIC [id number] 06:01:00 Test Item Value Reference Range Interpretation Comments TOTAL PROTEIN 6.6 gm/dL 6.0-8.3 (BEAKER) (test code = 770) ALBUMIN (BEAKER) 3.9 g/dL 3.5-5.0 (test code = 1145) ALKALINE PHOSPHATASE 53 U/L 40-150 (BEAKER) (test code = 346) BILIRUBIN TOTAL 1.2 mg/dL 0.2-1.2 (BEAKER) (test code = 377) SODIUM (BEAKER) (test 139 meq/L 136-145 code = 381) POTASSIUM (BEAKER) 3.9 meq/L 3.5-5.1 (test code = 379) CHLORIDE (BEAKER) 104 meq/L 98-107 (test code = 382) CO2 (BEAKER) (test 23 meq/L 22-29 code = 355) BLOOD UREA NITROGEN 16 mg/dL 7-21 (BEAKER) (test code = 354) CREATININE (BEAKER) 1.06 mg/dL 0.57-1.25 (test code = 358) GLUCOSE RANDOM 135 mg/dL 70-105 H (BEAKER) (test code = 652) CALCIUM (BEAKER) 8.2 mg/dL 8.4-10.2 L (test code = 697) AST (SGOT) (BEAKER) 291 U/L 5-34 H (test code = 353) ALT (SGPT) (BEAKER) 54 U/L 6-55 (test code = 347) EGFR (BEAKER) (test 71 mL/min/1.73 ESTIMA SONIA GFR IS code = 1092) sq m NOT ACCURATE CREATININE CLEARANCE IN PREDICTING GLOMERULAR FILTRATION RATE . ESTIMATED GFR I S NOT APPLICABLE FOR DIALYSIS PATIEN TS. Digital Content Specialist ID - [id number] 06:01:00 Test Item Value Reference Range Interpretation Comments MAGNESIUM (BEAKER) (test code = 2.2 mg/dL 1.6-2.6 627) Digital Content Specialist ID - [id number] 06:01:00 Test Item Value Reference Range Interpretation Comments PHOSPHORUS (BEAKER) (test code = 3.5 mg/dL 2.3-4.7 604) Digital Content Specialist ID - EDASICBC W/PLT COUNT & AUTO [id number] 05:24:00 Test Item Value Reference Range Interpretation Comments WHITE BLOOD CELL COUNT (BEAKER) 16.0 K/ L 3.5-10.5 H (test code = 775) RED BLOOD CELL COUNT (BEAKER) 4.65 M/ L 4.63-6.08 (test code = 761) HEMOGLOBIN (BEAKER) (test code = 14.7 GM/DL 13.7-17.5 410) HEMATOCRIT (BEAKER) (test code = 43.1 % 40.1-51.0 411) MEAN CORPUSCULAR VOLUME (BEAKER) 92.7 fL 79.0-92.2 H (test code = 753) MEAN CORPUSCULAR HEMOGLOBIN 31.6 pg 25.7-32.2 (BEAKER) (test code = 751) MEAN CORPUSCULAR HEMOGLOBIN CONC 34.1 GM/DL 32.3-36.5 (BEAKER) (test code = 752) RED CELL DISTRIBUTION WIDTH 12.6 % 11.6-14.4 (BEAKER) (test code = 412) PLATELET COUNT (BEAKER) (test 240 K/CU MM 150-450 code = 756) MEAN PLATELET VOLUME (BEAKER) 10.0 fL 9.4-12.4 (test code = 754) NUCLEATED RED BLOOD CELLS 0 /100 WBC 0-0 (BEAKER) (test code = 413) NEUTROPHILS RELATIVE PERCENT 84 % (BEAKER) (test code = 429) LYMPHOCYTES RELATIVE PERCENT 12 % (BEAKER) (test code = 430) MONOCYTES RELATIVE PERCENT 4 % (BEAKER) (test code = 431) EOSINOPHILS RELATIVE PERCENT 0 % (BEAKER) (test code = 432) BASOPHILS RELATIVE PERCENT 0 % (BEAKER) (test code = 437) NEUTROPHILS ABSOLUTE COUNT 13.48 K/ L 1.78-5.38 H (BEAKER) (test code = 670) LYMPHOCYTES ABSOLUTE COUNT 1.84 K/ L 1.32-3.57 (BEAKER) (test code = 414) MONOCYTES ABSOLUTE COUNT (BEAKER) 0.59 K/ L 0.30-0.82 (test code = 415) EOSINOPHILS ABSOLUTE COUNT 0.00 K/ L 0.04-0.54 L (BEAKER) (test code = 416) BASOPHILS ABSOLUTE COUNT (BEAKER) 0.01 K/ L 0.01-0.08 (test code = 417) IMMATURE GRANULOCYTES-RELATIVE 0 % 0-1 PERCENT (BEAKER) (test code = 2801) HIGH SENSITIVITY TROPONIN [id number] 00:29:00 Test Item Value Reference Range Interpretation Comments HIGH SENSITIVITY 76464 pg/ml See_Comment HH [Automated message] TROPONIN I (test code The sy stem which = [id number]) generated this result transmitted ref erence range: <=35. Th e reference range was not used to int erpret this result as normal/abnormal . Digital Content Specialist ID - GARRETThe TRUCK SPOTTER STAT High Sensitivity Troponin-I results should be used in conjunction with other diagnostic information such as ECG, clinical observations and information, and patient symptoms to aid in the diagnosis of ND.Digital Content Specialist ID - EMMY BOOTH LB-type Natriuretic Factor (BNP)2020-08-13 22:17:00 Test Item Value Reference Range Interpretation Comments BNP (test code = 10275-7) 111 pg/mL 0-100 H CYNDEE (test code = CYNDEE) Digital Content Specialist ID - GARRET Lab Interpretation (test Abnormal code = 18496-5) [facility] NAT[facility] FA[facility] (BNP)2020-08-13 22:17:00 Test Item Value Reference Range Interpretation Comments B-TYPE NATRIURETIC PEPTIDE (BEAKER) 111 pg/mL 0-100 H (test code = 700) Digital Content Specialist ID - [id number] 22:15:00 Test Item Value Reference Range Interpretation Comments PARTIAL THROMBOPLASTIN TIME 32.3 seconds 22.5-36.0 (BEAKER) (test code = 760) Lipid [id number] 22:11:00 Test Item Value Reference Range Interpretation Comments Triglycerides (test 148 mg/dL Specimen code = 2571-8) slightly hemolyzed Cholesterol (test 156 mg/dL Specimen code = 2093-3) slightly hemolyzed HDL (test code = 38 mg/dL 2084-9) LDL Calculated (test 88 mg/dL code = 00925-6) CYNDEE (test code = Triglyceride CYNDEE) Reference Range: Low Risk <150 Borderline 150-199 High Risk 200-499 Very High Risk >=500 Cholesterol Reference Range: Low Risk <200 Borderline 200-239 High Risk >240 HDL Cholesterol Reference Range: Low Risk >=60 High Risk <40 LDL Cholesterol Reference Range: Optimal <100 Near Optimal 100-129 Borderline 130-159 High 160-189 Very High >=190 Digital Content Specialist ID - AAHAMID [facility] [id number] 22:11:00 Test Item Value Reference Range Interpretation Comments MAGNESIUM (BEAKER) 1.8 mg/dL 1.6-2.6 Specimen slightly (test code = 627) hemolyzed Digital Content Specialist ID - AAHAMIDCOMPREHENSIVE METABOLIC [id number] 22:11:00 Test Item Value Reference Range Interpretation Comments TOTAL PROTEIN 6.9 gm/dL 6.0-8.3 Specimen sligh tly (BEAKER) (test code = hemoly zed 770) ALBUMIN (BEAKER) 3.9 g/dL 3.5-5.0 Specimen sl ightly (test code = 1145) hemolyzed ALKALINE PHOSPHATASE 54 U/L 40-150 (BEAKER) (test code = 346) BILIRUBIN TOTAL 1.2 mg/dL 0.2-1.2 Specimen sli ghtly (BEAKER) (test code = hemoly zed 377) SODIUM (BEAKER) (test 138 meq/L 136-145 code = 381) POTASSIUM (BEAKER) 4.7 meq/L 3.5-5.1 Specimen slightly (test code = 379) hemolyzed CHLORIDE (BEAKER) 105 meq/L 98-107 (test code = 382) CO2 (BEAKER) (test 22 meq/L 22-29 code = 355) BLOOD UREA NITROGEN 14 mg/dL 7-21 (BEAKER) (test code = 354) CREATININE (BEAKER) 0.92 mg/dL 0.57-1.25 Specimen slightly (test code = 358) hemolyzed GLUCOSE RANDOM 152 mg/dL 70-105 H (BEAKER) (test code = 652) CALCIUM (BEAKER) 8.4 mg/dL 8.4-10.2 (test code = 697) AST (SGOT) (BEAKER) 135 U/L 5-34 H Specimen slightly (test code = 353) hemolyzed ALT (SGPT) (BEAKER) 37 U/L 6-55 Specimen slightly (test code = 347) hemolyzed EGFR (BEAKER) (test 83 mL/min/1.73 ESTIMA SONIA GFR IS code = 1092) sq m NOT ACCURATE CREATININE CLEARANCE IN PREDICTING GLOMERULAR FILTRATION RATE . ESTIMATED GFR I S NOT APPLICABLE FOR DIALYSIS PATIEN TS. Digital Content Specialist ID - AAHAMIDLIPID [id number] 22:11:00 Test Item Value Reference Range Interpretation Comments TRIGLYCERIDES (BEAKER) 148 mg/dL Speci men slightly (test code = 540) hemolyzed CHOLESTEROL (BEAKER) 156 mg/dL Specime n slightly (test code = 631) hemolyzed HDL CHOLESTEROL (BEAKER) 38 mg/dL (test code = 976) LDL CHOLESTEROL 88 mg/dL CALCULATED (BEAKER) (test code = 633) Triglyceride Reference Range: Low Risk <150 Borderline 150-199 High Risk 200-499 Very High Risk >=500Cholesterol Reference Range: Low Risk <200 Borderline 200-239 High Risk >240HDL Cholesterol Reference Range: Low Risk >=60 High Risk <40LDL Cholesterol Reference Range: Optimal <100 Near Optimal 100-129 Borderline 130-159 High 160-189 Very High >=190 Digital Content Specialist ID - AAHAMIDCBC W/PLT COUNT & AUTO DIFFERENTIAL 2020-08-13 21:57:00 Test Item Value Reference Range Interpretation Comments WHITE BLOOD CELL COUNT (BEAKER) 14.1 K/ L 3.5-10.5 H (test code = 775) RED BLOOD CELL COUNT (BEAKER) 4.65 M/ L 4.63-6.08 (test code = 761) HEMOGLOBIN (BEAKER) (test code = 15.0 GM/DL 13.7-17.5 410) HEMATOCRIT (BEAKER) (test code = 43.4 % 40.1-51.0 411) MEAN CORPUSCULAR VOLUME (BEAKER) 93.3 fL 79.0-92.2 H (test code = 753) MEAN CORPUSCULAR HEMOGLOBIN 32.3 pg 25.7-32.2 H (BEAKER) (test code = 751) MEAN CORPUSCULAR HEMOGLOBIN CONC 34.6 GM/DL 32.3-36.5 (BEAKER) (test code = 752) RED CELL DISTRIBUTION WIDTH 12.5 % 11.6-14.4 (BEAKER) (test code = 412) PLATELET COUNT (BEAKER) (test 219 K/CU MM 150-450 code = 756) MEAN PLATELET VOLUME (BEAKER) 9.7 fL 9.4-12.4 (test code = 754) NUCLEATED RED BLOOD CELLS 0 /100 WBC 0-0 (BEAKER) (test code = 413) NEUTROPHILS RELATIVE PERCENT 89 % (BEAKER) (test code = 429) LYMPHOCYTES RELATIVE PERCENT 8 % (BEAKER) (test code = 430) MONOCYTES RELATIVE PERCENT 2 % (BEAKER) (test code = 431) EOSINOPHILS RELATIVE PERCENT 0 % (BEAKER) (test code = 432) BASOPHILS RELATIVE PERCENT 0 % (BEAKER) (test code = 437) NEUTROPHILS ABSOLUTE COUNT 12.53 K/ L 1.78-5.38 H (BEAKER) (test code = 670) LYMPHOCYTES ABSOLUTE COUNT 1.17 K/ L 1.32-3.57 L (BEAKER) (test code = 414) MONOCYTES ABSOLUTE COUNT (BEAKER) 0.32 K/ L 0.30-0.82 (test code = 415) EOSINOPHILS ABSOLUTE COUNT 0.00 K/ L 0.04-0.54 L (BEAKER) (test code = 416) BASOPHILS ABSOLUTE COUNT (BEAKER) 0.01 K/ L 0.01-0.08 (test code = 417) IMMATURE GRANULOCYTES-RELATIVE 1 % 0-1 PERCENT (BEAKER) (test code = 2801) RAD, CHEST, 1 VIEW, NON [id number] 21:54:00Reason for exam:->chest painShould this be performed at the bedside?->Yes [facility] 1960 Sex: MFINAL REPORT History: Chest pain. Comparison: None. Findings: A single view of the chest is submitted. The cardiomediastinal contours are unremarkable. There is mild central pulmonary vascular engorgement. Diffuse interstitial coarsening suggests interstitial edema. Alternatively, this appearance can reflect atypical infection. There is no focal consolidation, pneumothorax, large pleural effusion or acute bony abnormality. Signed: Jimmie Carnes MDReport Verified Date/Time: 08/13/2020 21:54:39 [id number] 00:00:00Ordered by an unspecified provider.[facility]
[2020-08-30 00:33] LABS: Absolute Lymphocytes (CBC) 1.9 K/uL (0.7-4.9); Basophils % 1.2 % (0-1.3); Hematocrit 32.6 % (39.6-49.0); Lymphocytes % 16.7 % (15.3-44.8); MPV 8.5 fL (7.6-11.3); RBC Red Blood Cell Count 3.44 M/uL (4.33-5.43)
[2020-08-30 00:35] LABS: Protime INR 2.52
[2020-08-30 00:47] LABS: Albumin 2.8 g/dL (3.4-5.0); Bilirubin Direct 0.5 mg/dL (0-0.2); Magnesium 2.3 mg/dL (1.8-2.4); Potassium 3.9 mmol/L (3.5-5.1); Protein, Total 6.4 g/dL (6.4-8.2); Troponin (Emerg Dept Use Only) 0.13 ng/mL (0.0-0.045)
[2020-08-30] MEDS ORDERED: FUROSEMIDE 40 MG/4 ML VIAL ONE (01:32)
--- NOTE | 2020-08-30 01:56 | ER ---
Nurse's Notes [facility] Name: Srinivasa Singer Age: 60 yrs Sex: Male : 1960 Arrival Date: 08/29/2020 Time: 23:31 Bed 6 Private MD: Diagnosis: Unspecified combined systolic (congestive) and diastolic (congestive) heart failure;Hypoxemia;Vomiting, unspecified Presentation: 08/29 23:38 Chief complaint: Patient states: I am having difficulty of breathing, vomiting and rr5 cough today, I noticed after the last dose of antibiotic this all started. recently had a triple bypass 2 weeks ago. Coronavirus screen: Client denies travel out of the [place] in the last 14 days. cough unrelated to allergies, difficulty breathing, At this time, the client does not indicate any symptoms associated with coronavirus-19. Ebola Screen: Patient negative for fever greater than or equal to 101.5 degrees Fahrenheit, and additional compatible Ebola Virus Disease symptoms Patient denies exposure to infectious person. Patient denies travel to an Ebola-affected area in the 21 days before illness onset. Initial Sepsis Screen: Does the patient meet any 2 criteria? No. Patient's initial sepsis screen is negative. Does the patient have a suspected source of infection? No. Patient's initial sepsis screen is negative. Risk Assessment: Do you want to hurt yourself or someone else? Patient reports no desire to harm self or others. Onset of symptoms was August 29, 2020. 23:38 Method Of Arrival: Ambulatory rr5 23:38 Acuity: LALA 3 rr5 Historical: - Allergies: 23:42 No Known Allergies; rr5 - PMHx: 23:42 Myocardial infarction; High Cholesterol; Hypertension; rr5 - PSHx: 23:42 Heart stents; CABG; rr5 - Immunization history:: Adult Immunizations up to date. - Social history:: Smoking status: unknown. Screenin/06 00:00 Abuse screen: Denies threats or abuse. Nutritional screening: No deficits noted. jb4 Tuberculosis screening: No symptoms or risk factors identified. Fall Risk IV access (20 points). Mental Status- Oriented to own ability (0 pts). Total Ramirez Fall Scale indicates No Risk (0-24 pts). Assessment: 00:00 General: Appears in no apparent distress. comfortable, Behavior is calm, cooperative, jb4 appropriate for age. Pain: Denies pain. Neuro: Level of Consciousness is awake, alert, obeys commands, Oriented to person, place, time, situation. Cardiovascular: Patient's skin is warm and dry. Rhythm is sinus rhythm. Respiratory: Airway is patent Respiratory effort is even, unlabored, Breath sounds are clear bilaterally. GI: No signs and/or symptoms were reported involving the gastrointestinal system. : No signs and/or symptoms were reported regarding the genitourinary system. EENT: No signs and/or symptoms were reported regarding the EENT system. Derm: Skin is intact, Skin is pink, warm \T\ dry. surgical incision w/ sutures noted to chest wall. Musculoskeletal: Circulation, motion, and sensation intact. Range of motion: intact in all extremities. 00:47 Reassessment: Pt is resting peacefully in bed with eyes closed, no s/s of pain or jb4 distress noted. Respirations are even and unlabored. 01:55 Reassessment: Patient appears in no apparent distress at this time. Patient and/or jb4 family updated on plan of care and expected duration. Pain level reassessed. Patient is alert, oriented x 3, equal unlabored respirations, skin warm/dry/pink. 03:00 Reassessment: Patient appears in no apparent distress at this time. Patient and/or jb4 family updated on plan of care and expected duration. Pain level reassessed. Patient is alert, oriented x 3, equal unlabored respirations, skin warm/dry/pink. 03:41 Reassessment: Patient appears in no apparent distress at this time. Patient and/or jb4 family updated on plan of care and expected duration. Pain level reassessed. Patient is alert, oriented x 3, equal unlabored respirations, skin warm/dry/pink. Vital Signs: 08/29 23:38 BP 121 / 94; Pulse 66; Resp 25; Temp 98; Pulse Ox 95% ; Weight 94.8 kg; Height 5 ft. 8 rr5 in. (172.72 cm); Pain 0/10; 08/30 00:45 BP 111 / 70; Pulse 57; Resp 17; Pulse Ox 98% on 2 lpm NC; jb4 01:55 BP 111 / 70; Pulse 74; Resp 19; Pulse Ox 95% on 2 lpm NC; jb4 03:30 BP 109 / 66; Pulse 59; Resp 18; Pulse Ox 100% on 2 lpm NC; jb4 08/29 23:38 Body Mass Index 31.78 (94.80 kg, 172.72 cm) rr5 ED Course: 08/29 23:31 Patient arrived in ED. es 23:42 Triage completed. rr5 23:43 Arm band placed on right wrist. rr5 23:46 Lv Cobb MD is Attending Physician. tw4 23:52 Renard Keita, RN is Primary Nurse. jb4 08/30 00:00 Inserted saline lock: 18 gauge in right forearm, using aseptic technique. Blood jb4 collected. 00:00 Initial lab(s) drawn, by me, sent to lab. First set of blood cultures drawn by me, EKG jb4 done, by ED staff, reviewed by Lv Cobb MD. 00:13 XRAY CXR (1 view) In Process Unspecified. EDMS 01:54 Sirena Ferguson MD is Hospitalizing Provider. tw4 03:30 Patient has correct armband on for positive identification. Bed in low position. Call jb4 light in reach. Side rails up X 1. Pulse ox on. NIBP on. 03:30 No provider procedures requiring assistance completed. Patient admitted, IV remains in jb4 place. Administered Medications: 01:17 Drug: Lasix (furosemide) 40 mg Route: IVP; Site: right antecubital; ak2 03:07 Follow up: Response: No adverse reaction jb4 Outcome: 01:55 Decision to Hospitalize by Provider. tw4 03:30 Admitted to Med/surg accompanied by nurse, via wheelchair, room 215, with oxygen, with jb4 chart. 03:30 Condition: stable 03:30 Discharge instructions given to patient, Instructed on the need for admit, Demonstrated understanding of instructions. 03:46 Patient left the ED. jb4 Signatures: Dispatcher [employer] EDMS Celia Cook James, RN RN jb4 Lv Cobb MD MD tw4 Lc Ferraro RN RN rr5 Brandon Rodarte2
--- NOTE | 2020-08-30 01:56 | EDPHYS ---
Physician Documentation [facility] Name: Srinivasa Singer Age: 60 yrs Sex: Male : 1960 Arrival Date: 08/29/2020 Time: 23:31 Bed 6 Private MD: ED Physician Lv Cobb HPI: 08/30 02:53 This 60 yrs old Male presents to ER via Ambulatory with complaints of tw4 Breathing Difficulty, Cough, Vomiting, Post Surgical Pain. 02:53 The patient has shortness of breath at rest. Onset: The symptoms/episode began/occurred tw4 today. Duration: The symptoms are continuous, and are steadily getting worse. The patient's shortness of breath is aggravated by exertion, is alleviated by rest. Associated signs and symptoms: The patient has no apparent associated signs or symptoms. Severity of symptoms: At their worst the symptoms were moderate in the emergency department the symptoms are unchanged. The patient has not experienced similar symptoms in the past. Historical: - Allergies: 08/29 23:42 No Known Allergies; rr5 - PMHx: 23:42 Myocardial infarction; High Cholesterol; Hypertension; rr5 - PSHx: 23:42 Heart stents; CABG; rr5 - Immunization history:: Adult Immunizations up to date. - Social history:: Smoking status: unknown. ROS: 08/30 02:53 Constitutional: Negative for fever, chills, and weight loss, Eyes: Negative for injury, tw4 pain, redness, and discharge, Cardiovascular: Negative for chest pain, palpitations, and edema. MS/Extremity: Negative for injury and deformity, Skin: Negative for injury, rash, and discoloration, Neuro: Negative for headache, weakness, numbness, tingling, and seizure. Respiratory: Positive for cough, dyspnea on exertion, shortness of breath, Negative for hemoptysis, orthopnea. Abdomen/GI: Positive for nausea and vomiting, nausea, vomiting, Negative for abdominal pain, nausea, vomiting, and diarrhea, diarrhea, constipation, abdominal cramps, abdominal distension, anorexia, dysphagia, hematemesis, black/tarry stool, rectal pain, rectal bleeding, bowel incontinence, flatulence, acute changes. Exam: 02:53 Constitutional: This is a well developed, well nourished patient who is awake, alert, tw4 and in no acute distress. Head/Face: Normocephalic, atraumatic. Cardiovascular: Regular rate and rhythm with a normal S1 and S2. No gallops, murmurs, or rubs. Normal PMI, no JVD. No pulse deficits. Respiratory: Lungs have equal breath sounds bilaterally, clear to auscultation and percussion. No rales, rhonchi or wheezes noted. No increased work of breathing, no retractions or nasal flaring. Abdomen/GI: Soft, non-tender, with normal bowel sounds. No distension or tympany. No guarding or rebound. No evidence of tenderness throughout. 02:53 Back: No spinal tenderness. No costovertebral tenderness. Full range of motion. MS/ Extremity: Pulses equal, no cyanosis. Neurovascular intact. Full, normal range of motion. Neuro: Awake and alert, GCS 15, oriented to person, place, time, and situation. Cranial nerves II-XII grossly intact. Motor strength 5/5 in all extremities. Sensory grossly intact. Cerebellar exam normal. Normal gait. 02:53 Chest/axilla: Inspection: sternal incision healing well, Palpation: tenderness, that is mild, that totally reproduces the patient's complaints. Vital Signs: 08/29 23:38 BP 121 / 94; Pulse 66; Resp 25; Temp 98; Pulse Ox 95% ; Weight 94.8 kg; Height 5 ft. 8 rr5 in. (172.72 cm); Pain 0/10; 08/30 00:45 BP 111 / 70; Pulse 57; Resp 17; Pulse Ox 98% on 2 lpm NC; jb4 01:55 BP 111 / 70; Pulse 74; Resp 19; Pulse Ox 95% on 2 lpm NC; jb4 03:30 BP 109 / 66; Pulse 59; Resp 18; Pulse Ox 100% on 2 lpm NC; jb4 08/29 23:38 Body Mass Index 31.78 (94.80 kg, 172.72 cm) rr5 MDM: 08/29 23:46 Patient medically screened. tw4 08/30 02:55 Differential diagnosis: CHF exacerbation, Chronic Obstructive Pulmonary Disease tw4 Myocardial Infarction pneumonia, pulmonary edema, Pulmonary Embolism reactive airway disease, Sepsis. Antibiotic administration: Not indicated. Data reviewed: vital signs, nurses notes. Data reviewed: lab test result(s), cardiac enzymes, CBC, electrolytes, radiologic studies, plain films. Data interpreted: Pulse oximetry: Interpretation: normal. Counseling: I had a detailed discussion with the patient and/or guardian regarding: the historical points, exam findings, and any diagnostic results supporting the discharge/admit diagnosis, lab results, radiology results. Physician consultation: Sirena Ferguson MD regarding admission, to the telemetry unit. patient's condition, and will see patient in inpatient room. 08/29 23:45 Order name: Blood Culture Adult (2) 08/29 23:45 Order name: BMP; Complete Time: :08/30 01:06 Interpretation: Normal except: CRE 1.37; GLUC 127; BUN 23; GFR 53. 08/29 23:45 Order name: CBC with Diff; Complete Time: :08/30 01:06 Interpretation: Normal except: WBC 11.20; RBC 3.44; HGB 10.8; HCT 32.6; RDW 16.5; NEUT tw4 A 8.3; DIANA% 74.3. 08/29 23:45 Order name: Hepatic Function; Complete Time: :08/30 01:06 Interpretation: Normal except: BILID 0.5; ALB 2.8; GLOB 3.6; A/G 0.8; BILIT 2.0. 08/29 23:45 Order name: Lipase; Complete Time: :08/30 01:06 Interpretation: Normal except: LIP 54. 08/29 23:45 Order name: Magnesium; Complete Time: :08/30 01:07 Interpretation: Within normal limits: MG 2.3. 08/29 23:45 Order name: XRAY CXR (1 view) 08/29 23:45 Order name: NT PRO-BNP; Complete Time: :08/30 01:06 Interpretation: Normal except: NT PRO-BNP 64174. 08/29 23:45 Order name: PT-INR; Complete Time: :08/30 01:07 Interpretation: Abnormal: PT 29.2. 08/29 23:45 Order name: Ptt, Activated; Complete Time: :08/30 01:07 Interpretation: Within normal limits: PTT 30.5. 08/29 23:45 Order name: Troponin (emerg Dept Use Only); Complete Time: 01:05 08/30 01:07 Interpretation: Normal except: TROPED 0.13. 08/30 02:46 Order name: SARS-COV-2 RT PCR EDMS 08/29 23:45 Order name: EKG; Complete Time: 23:46 4 08/29 23:45 Order name: Cardiac monitoring; Complete Time: 00:09 08/29 23:45 Order name: EKG - Nurse/Tech; Complete Time: 00:09 08/29 23:45 Order name: IV Saline Lock; Complete Time: 00:09 08/29 23:45 Order name: Labs collected and sent; Complete Time: 00:08/29 23:45 Order name: O2 Per Protocol; Complete Time: 00:09 08/29 23:45 Order name: O2 Sat Monitoring; Complete Time: 00:09 08/30 03:20 Order name: CONS Physician Consult [facility] EC:53 Rate is 64 beats/min. Rhythm is regular. QRS [place] is Normal. [place] interval is normal. QRS tw4 interval is prolonged. QT interval is normal. No Q waves. T waves are Normal. No ST changes noted. Clinical impression: NSR w/ Non-specific ST/T Changes. Interpreted by me. Reviewed by me. Administered Medications: 01:17 Drug: Lasix (furosemide) 40 mg Route: IVP; Site: right antecubital; ak2 03:07 Follow up: Response: No adverse reaction jb4 Disposition: 08/30/20 01:55 Hospitalization ordered by Sirena Ferguson for Inpatient Admission. Preliminary diagnosis are Unspecified combined systolic (congestive) and diastolic (congestive) heart failure, Hypoxemia, Vomiting, unspecified. - Bed requested for Telemetry/MedSurg (Inpatient). - Status is Inpatient Admission. jb4 - Condition is Fair. - Problem is new. - Symptoms are unchanged. Signatures: Dispatcher [employer] [facility] Shikha Joaquin RN RN mw Bryson, James, RN RN jb4 Lv Cobb MD MD tw4 Lc Ferraro RN RN rr5 Brandon Rodarte ak2 Corrections: (The following items were deleted from the chart) 02:24 02:12 CORONAVIRUS+MR.LAB.BRZ ordered. EDMS EDMS 03:22 01:55 Hospitalization Ordered by Sirena Ferguson MD for Inpatient Admission. Preliminary mw diagnosis is Unspecified combined systolic (congestive) and diastolic (congestive) heart failure; Hypoxemia; Vomiting, unspecified. Bed requested for Telemetry/MedSurg (Inpatient). Status is Inpatient Admission. Condition is Fair. Problem is new. Symptoms are unchanged. tw4 03:46 03:22 08/30/2020 01:55 Hospitalization Ordered by Sirena Ferguson MD for Inpatient jb4 Admission. Preliminary diagnosis is Unspecified combined systolic (congestive) and diastolic (congestive) heart failure; Hypoxemia; Vomiting, unspecified. Bed requested for Telemetry/MedSurg (Inpatient). Status is Inpatient Admission. Condition is Fair. Problem is new. Symptoms are unchanged. mw
[2020-08-30] MEDS ORDERED: ONDANSETRON 4 MG/2 ML VIAL IV PRN (03:47)
[2020-08-30] MEDS ORDERED: HYDROCODONE/APAP 5/325 MG TAB PO PRN (03:47)
[2020-08-30] MEDS ORDERED: ACETAMINOPHEN 500 MG TAB PO PRN (03:47)
--- NOTE | 2020-08-30 03:51 | P.HP ---
Certification for Inpatient Patient admitted to: Inpatient With expected LOS: >2 Midnights Patient will require the following post-hospital care: None Practitioner: I am a practitioner with admitting privileges, knowledge of patient current condition, hospital course, and medical plan of care. Services: Services provided to patient in accordance with Admission requirements found in Title 42 Section 412.3 of the Code of Federal Regulations <HughWilbert Marcus - Last Filed: 08/30/20 03:46> Patient History Date of Service: 08/30/20 Reason for admission: chf exacerbation History of Present Illness: Mr. Singer is a 60 yo M with HTN, HLD, GERD, Hereditary Hemochromatosis here today with SOB and BARBOZA for the past 2 days. He tried albuterol treatments, which worked initially. He reports cough, clear sputum, pleuritic pain, wheezing and edema. He had a CABG after an NSTEMI [address] Fitch in [place]. he has been compliant with medications. H/H 10.8. BUN 23 Cr 1.37 GFR 53. Trop 0.13, BNP 18481. - Past Medical/Surgical History -: Hypertension -: Hyperlipidemia -: GERD -: NSTEMI 07/2020 -: hereditary hemochromatosis -: CABG 07/2020 -: cleft lip repair Psychosocial/ Personal History: - Family History Father Notes: electrocuted at 28 Mother -: Heart disease Brother -: Cancer Sister Notes: lupus - Social History Smoking Status: Never smoker Alcohol use: No CD- Drugs: No Caffeine use: Yes Place of Residence: Home <Wilbert Reese - Last Filed: 08/30/20 03:46> Date of Service: 08/30/20 <Sirena Ferguson - Last Filed: 08/30/20 17:26> Allergies No Known Allergies Allergy (Unverified 08/13/20 17:49) Review of Systems 10-point ROS is otherwise unremarkable Respiratory: Cough, Shortness of Breath, SOB with Excertion, Pleuritic Pain, Sputum, Wheezing, As per HPI Cardiovascular: Edema <Wilbert Reese - Last Filed: 08/30/20 03:46> Physical Examination - Physical Exam General: Alert, In no apparent distress HEENT: Atraumatic, PERRLA, Mucous membr. moist/pink, EOMI, Sclerae nonicteric Neck: Supple, 2+ carotid pulse no bruit, No LAD, Without JVD or thyroid abnormality Respiratory: Diminished, Crackles/rales Cardiovascular: Normal pulses, Regular rate/rhythm, No gallops, No rubs, No murmurs, Edema Capillary refill: <2 Seconds Gastrointestinal: Normal bowel sounds, No tenderness Musculoskeletal: No tenderness Integumentary: No rashes Neurological: Normal gait, Normal speech, Normal strength at 5/5 x4 extr, Normal tone, Normal affect Lymphatics: No axilla or inguinal lymphadenopathy - Studies Laboratory Data (last 24 hrs) 08/30/20 00:01: PT 29.2 H, INR 2.52, APTT 30.5 08/30/20 00:01: WBC 11.20 H, Hgb 10.8 L, Hct 32.6 L, Plt Count 377 08/30/20 00:01: Sodium 138, Potassium 3.9, BUN 23 H, Creatinine 1.37 H, Glucose 127 H, Magnesium 2.3, Total Bilirubin 2.0 H, AST 23, ALT 39, Alkaline Phosphatase 72, Lipase 54 L <Wilbert Reese - Last Filed: 08/30/20 03:46> - Studies Laboratory Data (last 24 hrs) 08/30/20 00:01: PT 29.2 H, INR 2.52, APTT 30.5 08/30/20 00:01: WBC 11.20 H, Hgb 10.8 L, Hct 32.6 L, Plt Count 377 08/30/20 00:01: Sodium 138, Potassium 3.9, BUN 23 H, Creatinine 1.37 H, Glucose 127 H, Magnesium 2.3, Total Bilirubin 2.0 H, AST 23, ALT 39, Alkaline Phosphatase 72, Lipase 54 L <Sirena Ferguson - Last Filed: 08/30/20 17:26> Assessment and Plan - Problems (Diagnosis) (1) CHF (congestive heart failure) Current Visit: Yes Status: Acute Qualifiers: Heart failure type: unspecified Heart failure chronicity: acute on chronic Qualified Code(s): I50.9 - Heart failure, unspecified (2) NSTEMI (non-ST elevated myocardial infarction) Current Visit: No Status: Chronic (3) GERD (gastroesophageal reflux disease) Current Visit: No Status: Chronic Qualifiers: Esophagitis presence: without esophagitis Qualified Code(s): K21.9 - Gastro-esophageal reflux disease without esophagitis (4) Hyperlipidemia Current Visit: No Status: Chronic Qualifiers: Hyperlipidemia type: unspecified Qualified Code(s): E78.5 - Hyperlipidemia, unspecified (5) Hypertension Current Visit: No Status: Chronic Qualifiers: Hypertension type: essential hypertension Qualified Code(s): I10 - Essential (primary) hypertension - Plan cardiology consulted ECHO pending continue IV bumex continue home amiodarone, eliquis, ASA, atorvastatin trend troponins monitor BMP BP stable continue to monitor O2 as needed, evaluate for home O2 Discharge Plan: Home Plan to discharge in: 48 Hours - Advance Directives Does patient have a Living Will: No Does patient have a Durable POA for Healthcare: No - Code Status/Comfort Care Code Status Assessed: Yes (full code) Critical Care: No Time Spent Managing Pts Care (In Minutes): 70 <Wilbert Reese - Last Filed: 08/30/20 03:46> Date of Service: 08/30/20 Subjective: Agree with plan of care as mentioned above. Patient is feeling much better. Diminished mucous production. Patient remains hypoxic. Will continue diuresing and await echocardiogram. Patient is status post three-vessel CABG. Physical Examination Vitals: Afebrile vital signs are stable Physical exam is unchanged Cardiovascular exam: Regular rate rhythm systolic ejection murmur 2/6 Lungs: Basilar crackles Skin: Patient with midline scar to the sternum with no abnormality Diagnostic data has been reviewed ASST: 1. Acute congestive heart failure 2. Status post three-vessel CABG/CAD 3. Hypoxemia PLAN: 1. Echocardiogram will be repeated to assess EF 2. Continue home cardiac meds 3. Check room air oxygen saturations for home oxygen 4. Cardiology consultation 5. Aggressive diuresis 6. Strict I's and O's 7. Repeat CXR 8. Daily weights 9. Education regarding diet and treatment of congestive heart failure <Sirena Ferguson - Last Filed: 08/30/20 17:26>
[2020-08-30 05:05] LABS: Urine Appearance CLEAR (Clear); Urine Bilirubin NEGATIVE (Negative); Urine Blood 2+ (Negative); Urine Color YELLOW (Yellow); Urine Glucose NEGATIVE (Negative); Urine Protein NEGATIVE (Negative); Urine Specific Gravity <=1.005 (1.005-1.030)
[2020-08-30 05:21] LABS: Urine Microscopic Reflex ORDER UMIC
[2020-08-30 05:28] LABS: Absolute Lymphocytes (CBC) 1.7 K/uL (0.7-4.9); Basophils % 1.4 % (0-1.3); Hematocrit 36.3 % (39.6-49.0); Lymphocytes % 19.5 % (15.3-44.8); MPV 8.1 fL (7.6-11.3); RBC Red Blood Cell Count 3.78 M/uL (4.33-5.43)
[2020-08-30 05:42] LABS: Bilirubin Total 2.2 mg/dL (0.2-1.0); Potassium 3.5 mmol/L (3.5-5.1)
[2020-08-30 05:44] LABS: Troponin I 0.12 ng/mL (0.0-0.045)
[2020-08-30 05:51] LABS: Thyroid Stimulating Hormone 13.8 uIU/mL (0.360-3.740)
[2020-08-30 05:56] LABS: Urine Bacteria <20 /HPF (NONE SEEN)
[2020-08-30] MEDS ORDERED: PNEUMOCOCCAL VACCINE 0.5 ML IMVAC ONE (08:00)
[2020-08-30] MEDS: AMIODARONE HCL 200 MG TAB PO SCH ×2 (08:28→20:52)
[2020-08-30] MEDS: APIXABAN 5 MG TABLET PO SCH ×2 (08:28→20:52)
[2020-08-30] MEDS: ASPIRIN EC 81 MG TAB PO SCH (08:28)
[2020-08-30] MEDS ORDERED: BUMETANIDE 1 MG/4 ML VIAL IV SCH (09:00)
[2020-08-30] MEDS ORDERED: POTASSIUM CL SA 10 MEQ TAB PO ONE (09:00)
--- NOTE | 2020-08-30 09:53 | RAD REPORT ---
EXAM DESCRIPTION: [facility] Single View08/30/2020 12:13 am CLINICAL HISTORY: Shortness of breath COMPARISON: July 2020 FINDINGS: Mild to moderate right and mild left pulmonary opacities. Heart is mildly enlarged. Postsurgical changes involve the chest IMPRESSION: Mild to moderate right and mild left pulmonary opacities may represent pneumonia or pul monary edema
--- NOTE | 2020-08-30 15:33 | CON ---
Date of Consultation: 08/30/2020 Reason For Consultation: Chest pain, shortness of breath. History Of Present Illness: A 60-year-old man has history of hypertension, dyslipidemia, acid reflux , severe coronary artery disease status post triple bypass surgery early in July, comes in because of having some cough and triggered some chest pain. He has recent sternotomy as mentioned above and the n he became short of breath, presented to the emergency room. He has been chest pain free and breath ing much better since he was admitted. Past Medical History: Hypertension, dyslipidemia, acid reflux, myocardial infarction, coronary arter y disease. Past Surgical History: Recent CABG last month. Medications: Refer to reconciliation sheet for detailed list. Allergies: NO KNOWN DRUG ALLERGIES. Family History: No premature coronary artery disease or cancer. Social History: He does not smoke or drink. Does not use any drugs. Review of Systems: All systems reviewed and they were negative except what was mentioned in the HPI. Physical Examination: Vital Signs: Temperature is 98.1, pulse 54, breathing at 16, blood pressure is 104/55, saturating 97 % on room air. General: Pleasant middle-aged male, in no apparent distress. Head and Neck: Pupils are equal, reactive to light. Intact eye movements. No JVD. No cervical lym phadenopathy. Neck: Supple. Thyroid is not enlarged. Lungs: Clear to auscultation bilaterally. No rhonchi, rales, or crackles. No accessory muscle use. Heart: Regular rate and rhythm. No extra sounds. Abdomen: Soft, nontender. Bowel sounds positive. No organomegaly. No masses or hernia. No rigidi ty or rebound. Extremities: No edema, clubbing, or cyanosis. Intact pulses. Skin: No rash noted. Neurologic: Alert, awake, oriented x3. No acute focal deficits appreciated. Investigations: Troponin 0.13 and then down to 0.1. Creatinine 1.32. NT-proBNP is 12,043. Hemoglo bin is 11.8 and the chest x-ray, pneumonia versus pulmonary edema. Assessment And Recommendations: 1.Chest pain and shortness of breath, which could be due to congestive heart failure exacerbation. I recommend diuresis intravenously and carefully monitor BUN, creatinine, electrolytes, and after diu resis, repeat chest x-ray. If any concern of pneumonia still present, then IV antibiotics might be r ecommended. Please obtain echocardiogram in the morning and further decision will be made accordingl y. 2.Borderline elevated troponin. This could be due to the congestive heart failure or recent cardiac intervention with bypass surgery. We will obtain echocardiogram to evaluate for any wall motion abn ormalities, then determine the plan accordingly. Thank you for the consult. /YOSELYN Voice ID: [id number] Report ID: [id number]
[2020-08-30] MEDS ORDERED: ATORVASTATIN 40 MG TAB PO SCH (21:00)
--- NOTE | 2020-08-31 00:57 | P.PN ---
Subjective Date of Service: 08/30/20 Patient clinically doing well today with no new complaints. Congestive heart failure with recent 3 vessel CABG. Continue with diuresing Review of Systems 10-point ROS is otherwise unremarkable Physical Examination - Vital Signs Temperature: 97.1 F Blood Pressure: 105/59 Pulse: 63 Respirations: 16 Pulse Ox (%): 94 - Physical Exam General: Alert, In no apparent distress, Oriented x3 Respiratory: Crackles/rales Cardiovascular: Regular rate/rhythm, Normal S1 S2, Systolic murmur Gastrointestinal: Normal bowel sounds, Soft and benign, Non-distended Musculoskeletal: No clubbing, No swelling Assessment & Plan - Problems (Diagnosis) (1) Acute CHF Current Visit: Yes Status: Acute (2) Pulmonary edema Current Visit: Yes Status: Acute (3) Hypoxemia Current Visit: Yes Status: Acute (4) Hyperlipidemia Current Visit: No Status: Chronic Qualifiers: Hyperlipidemia type: unspecified Qualified Code(s): E78.5 - Hyperlipidemia, unspecified (5) Hypertension Current Visit: No Status: Chronic Qualifiers: Hypertension type: essential hypertension Qualified Code(s): I10 - Essential (primary) hypertension - Plan 1. Echocardiogram to reassess LV function after Coronary artery bypass grafting 2. Continue cardiac meds 3. Continue with anti-platelet therapy 4. Cardiology consultation 5. Aggressive diuresis 6. Strict I's and O's 7. Repeat CXR 8. Daily weights 9. Education regarding diet and treatment of congestive heart failure Discharge Plan: Home Plan to discharge in: Greater than 2 days - Advance Directives Does patient have a Living Will: No Does patient have a Durable POA for Healthcare: No - Code Status/Comfort Care Code Status Assessed: Yes Code Status: Full Code Critical Care: No Time Spent Managing PTS Care (In Minutes): 35
[2020-08-31 06:20] LABS: Absolute Lymphocytes (CBC) 1.3 K/uL (0.7-4.9); Lymphocytes % 17.8 % (15.3-44.8); MPV 7.8 fL (7.6-11.3); RBC Red Blood Cell Count 3.38 M/uL (4.33-5.43)
[2020-08-31 06:27] VITALS: BMI 29.8
[2020-08-31 06:45] LABS: Albumin 2.4 g/dL (3.4-5.0); Bilirubin Total 1.8 mg/dL (0.2-1.0); Magnesium 2.3 mg/dL (1.8-2.4); Phosphorus 3.4 mg/dL (2.5-4.9); Potassium 3.6 mmol/L (3.5-5.1); Protein, Total 5.7 g/dL (6.4-8.2)
--- NOTE | 2020-08-31 07:39 | RAD REPORT ---
EXAM DESCRIPTION: [facility] Single View08/31/2020 5:05 am CLINICAL HISTORY: Pneumonia COMPARISON: none FINDINGS: Mild worsening in moderate right lung opacities. Mild left lung opacities. Heart remains enlarged. Postsurgical changes involve the chest IMPRESSION: Mild worsening in predominantly right lung opacities probably pneumonia
[2020-08-31] MEDS: APIXABAN 5 MG TABLET PO SCH (08:04)
[2020-08-31] MEDS: AMIODARONE HCL 200 MG TAB PO SCH (08:04)
[2020-08-31] MEDS: ASPIRIN EC 81 MG TAB PO SCH (08:04)
[2020-08-31] MEDS ORDERED: POTASSIUM CL SA 10 MEQ TAB PO ONE (09:00)
[2020-08-31] MEDS ORDERED: BUMETANIDE 1 MG TABLET PO SCH (09:00)
[2020-08-31] MEDS ORDERED: AMOX/K CLAV 500 MG TAB PO SCH (09:26)
--- NOTE | 2020-08-31 09:26 | P.DS ---
Admission Date: 08/30/20 Discharge Date: 08/31/20 Primary Care Provider: Dr. Corbett([facility]); Cardiology-Dr. Jaramillo Disposition: DC HOME/HOME HEALTH CARE Discharge Condition: GOOD Reason for Admission: chf exacerbation Consultations: Cardiology-Dr. Luis Procedures: COVID: Negative CXR: COMPARISON: none FINDINGS: Mild worsening in moderate right lung opacities. Mild left lung opacities. Heart remains enlarged. Postsurgical changes involve the chest IMPRESSION: Mild worsening in predominantly right lung opacities probably pneumonia ECHO: Medical Problem List: Dyspnea, pulmonary edema, and hypoxia secondary to acute CHF complicated with right lung pneumonia Hypertension Hyperlipidemia CAD with recent CABG Atrial fibrillation on chronic anticoagulation Brief History of Present Illness: 60 yo male with HTN, HLD, GERD, Hereditary Hemochromatosis presented with shortness of breath and dyspnea over the past 2 days. Patient has tried albuterol treatments. Patient also reports cough, pleuritic chest pain with wheezing. Patient with CAD and recent CABG about 2 weeks ago. Patient was admitted for further evaluation and treatment. Hospital Course: Patient presented with dyspnea, pulmonary edema and hypoxia secondary to acute CHF likely diastolic. Patient with recent CAD/NSTEMI requiring CABG x3 vessel. Patient was admitted for further evaluation and treatment. Patient was seen and evaluated by cardiology. Cardiology suspected acute CHF with the possibility of pneumonia. Chest x-ray showed possible pneumonia to the right lung. Patient was started on antibiotic therapy. Patient has improved. Patient without significant shortness of breath. Patient stable on oxygen. Echocardiogram obtained. Patient requires oxygen at discharge. Patient also desired home health and physical therapy at discharge. This will be arranged. At discharge patient without significant chest pain or shortness of breath. Patient will continue with oxygen to maintain sats above 93%. Currently on 2 L. Patient will continue with the 1500 cc/day fluid restriction and low-salt diet. Recommend to monitor his weight daily. At discharge the patient will continue with Bumex 1 mg daily. Patient need to increase medication up to twice daily if with increased edema, shortness of breath. This can be monitored and adjusted by his professional security officer. Cardiology also recommended to discontinue Amiodarone due to potential pulmonary toxicity. At discharge patient will continue with Augmentin 500 mg 1 pill twice daily for 7 days. Recommend to recheck chest x- ray in 2 to 4 weeks to monitor resolution. At discharge home health and physical therapy will be arranged. At discharge patient will follow up with cardiology within 1 week to follow-up hospitalization. Patient with CAD and recent NSTEMI requiring CABG x3 vessel. At discharge patient will continue with his current medications including aspirin 81 mg daily, Lipitor 40 mg daily, Bumex 1 mg daily, metoprolol 25 mg 1 pill twice daily, and Eliquis 5 mg 1 pill twice daily. Recommend follow-up with cardiology in 1 week. Patient with atrial fibrillation on chronic anticoagulation therapy. Cardiology recommends to discontinue to Amiodarone due to potential pulmonary toxicity. At discharge patient will continue with his current medication Eliquis 5 mg 1 pill twice daily. Patient also takes Metoprolol. Patient with hypertension. This appears stable. At discharge patient will continue with metoprolol 25 mg 1 pill twice daily. Recommend to maintain blood pressure less than 130/80. Further adjustment can be done by his PCP. May need to hold blood pressure medication if systolic less than 110 or heart rate less than 60. Patient with hyperlipidemia. At discharge patient will continue with Lipitor 40 mg daily. Vital Signs/Physical Exam: Temp Pulse Resp BP Pulse Ox 97.1 F 62 18 95/56 L 93 08/31/20 04:00 08/31/20 08:03 08/31/20 04:00 08/31/20 08:03 08/31/20 04:00 General: Alert, In no apparent distress, Oriented x3, Cooperative HEENT: Atraumatic Neck: Supple Respiratory: Clear to auscultation bilaterally, Normal air movement Cardiovascular: Normal pulses, Regular rate/rhythm Gastrointestinal: Normal bowel sounds, Soft and benign, Non-distended, No masses, No rebound, No guarding Musculoskeletal: No erythema, No tenderness, No warmth Integumentary: No tenderness/swelling Neurological: Normal speech, Normal strength at 5/5 x4 extr, Normal tone, Normal affect Laboratory Data at Discharge: WBC 7.20 K/uL (4.3-10.9) D 08/31/20 05:46 Hgb 11.0 g/dL (13.6-17.9) L 08/31/20 05:46 Hct 32.0 % (39.6-49.0) L 08/31/20 05:46 Plt Count 315 K/uL (152-406) 08/31/20 05:46 PT 29.2 SECONDS (9.5-12.5) H 08/30/20 00:01 INR 2.52 08/30/20 00:01 APTT 30.5 SECONDS (24.3-36.9) 08/30/20 00:01 Sodium 138 mmol/L (136-145) 08/31/20 05:46 Potassium 3.6 mmol/L (3.5-5.1) 08/31/20 05:46 BUN 18 mg/dL (7-18) 08/31/20 05:46 Creatinine 1.04 mg/dL (0.55-1.3) 08/31/20 05:46 Glucose 94 mg/dL (74-106) 08/31/20 05:46 Phosphorus 3.4 mg/dL (2.5-4.9) 08/31/20 05:46 Magnesium 2.3 mg/dL (1.8-2.4) 08/31/20 05:46 Total Bilirubin 1.8 mg/dL (0.2-1.0) H 08/31/20 05:46 AST 25 U/L (15-37) 08/31/20 05:46 ALT 31 U/L (12-78) 08/31/20 05:46 Alkaline Phosphatase 70 U/L (45-117) 08/31/20 05:46 Troponin I 0.10 ng/mL (0.0-0.045) H 08/30/20 07:13 Triglycerides 129 mg/dL (<150) 08/30/20 04:56 Cholesterol 135 mg/dL (<200) 08/30/20 04:56 HDL Cholesterol 27 mg/dL (40-60) L 08/30/20 04:56 Cholesterol/HDL Ratio 5.00 08/30/20 04:56 Lipase 54 U/L (73-393) L 08/30/20 00:01 Home Medications: Apixaban [Eliquis] 5 mg PO BID 08/30/20 Aspirin [Aspirin EC 81 MG] 81 mg PO DAILY 08/30/20 Atorvastatin Calcium [Lipitor] 40 mg PO BEDTIME 08/30/20 Bumetanide 1 mg PO DAILY 08/30/20 Hydrocodone Bit/Acetaminophen [Hydrocodon-Acetaminophen 5-325] 1 tab PO Q6HR 08/30/20 Metoprolol Tartrate [Lopressor*] 25 mg PO BID 08/30/20 Amox/Clavulanate [Augmentin 500-125 mg Tab*] 500 mg PO BID #14 tab 08/31/20 New Medications: Amox/Clavulanate [Augmentin 500-125 mg Tab*] 500 mg PO BID #14 tab Physician Discharge Instructions: Patient presented with dyspnea, pulmonary edema and hypoxia secondary to acute CHF likely diastolic. Patient with recent CAD/NSTEMI requiring CABG x3 vessel. Patient was admitted for further evaluation and treatment. Patient was seen and evaluated by cardiology. Cardiology suspected acute CHF with the possibility of pneumonia. Chest x-ray showed possible pneumonia to the right lung. Patient was started on antibiotic therapy. Patient has improved. Patient without significant shortness of breath. Patient stable on oxygen. Echocardiogram obtained. Patient requires oxygen at discharge. Patient also desired home health and physical therapy at discharge. This will be arranged. At discharge patient without significant chest pain or shortness of breath. Patient will continue with oxygen to maintain sats above 93%. Currently on 2 L. Patient will continue with the 1500 cc/day fluid restriction and low-salt diet. Recommend to monitor his weight daily. At discharge the patient will continue with Bumex 1 mg daily. Patient need to increase medication up to twice daily if with increased edema, shortness of breath. This can be monitored and adjusted by his professional security officer. Cardiology also recommended to discontinue Amiodarone due to potential pulmonary toxicity. At discharge patient will continue with Aug mentin 500 mg 1 pill twice daily for 7 days. Recommend to recheck chest x-ray in 2 to 4 weeks to monitor resolution. At discharge home health and physical therapy will be arranged. At discharge patient will follow up with cardiology within 1 week to follow-up hospitalization. Patient with CAD and recent NSTEMI requiring CABG x3 vessel. At discharge patient will continue with his current medications including aspirin 81 mg daily, Lipitor 40 mg daily, Bumex 1 mg daily, metoprolol 25 mg 1 pill twice daily, and Eliquis 5 mg 1 pill twice daily. Recommend follow-up with cardiology in 1 week. Patient with atrial fibrillation on chronic anticoagulation therapy. Cardiology recommends to discontinue to Amiodarone due to potential pulmonary toxicity. At discharge patient will continue with his current medication Eliquis 5 mg 1 pill twice daily. Patient also takes Metoprolol. Patient with hypertension. This appears stable. At discharge patient will continue with metoprolol 25 mg 1 pill twice daily. Recommend to maintain blood pressure less than 130/80. Further adjustment can be done by his PCP. May need to hold blood pressure medication if systolic less than 110 or heart rate less than 60. Patient with hyperlipidemia. At discharge patient will continue with Lipitor 40 mg daily. Diet: AHA Activity: Ad taco Followup: RINKU DOBBS [Primary Care Provider] - Time spent managing pt's care (in minutes): 55
[2020-08-31 11:34] VITALS: O2SAT 95
--- NOTE | 2020-08-31 12:18 | PN ---
Date of Progress Note: 08/31/2020 He was admitted yesterday for nausea, vomiting, cough, mild congestive heart failure. He has improve d drastically today. There is an echocardiogram pending. He has a history of CABG in July 2020 with perioperative atrial fibrillation has been seen by Dr. Gibson and next week . He came in with shortness of breath. We stopped his amiodarone. Continued to maintain sinus rhyt hm. He is on aspirin as well as Lipitor. I think he should go home on a higher dose of Bumex. He s hould have physical therapy soon and home oxygen is being set up. BRIAN/YOSELYN Voice ID: [id number] Report ID: [id number]
[2020-08-31 13:54] VITALS: BP 119/66; TEMP 98
--- NOTE | 2020-09-01 08:14 | ECHO ---
HEIGHT: 5 ft 8 in WEIGHT: 196 lb 11.2 oz DATE OF STUDY: 08/31/[address]: Wilbert Reese 2-DIMENSIONAL: YES M.MODE: YES DOPPLER: YES COLOR FLOW: YES TDS: NO PORTABLE: NO DEFINITY: NO BUBBLE STUDY: NO DIAGNOSIS: CONGESTIVE HEART FAILURE CARDIAC HISTORY: CATHERIZATION: SURGERY: PROSTHETIC VALVE: PACEMAKER: MEASUREMENTS (cm) DIASTOLIC (NORMALS) SYSTOLIC (NORMALS) IVSd 1.2 (0.6-1.2) LA Diam 4.3 (1.9-4.0) LVEF 37% LVIDd 5.5 (3.5-5.7) LVIDs 4.5 (2.0-3.5) %FS 18% LVPWd 1.3 (0.6-1.2) Ao Diam 3.4 (2.0-3.7) 2 DIMENSIONAL ASSESSMENT: RIGHT ATRIUM: NORMAL LEFT ATRIUM: NORMAL RIGHT VENTRICLE: NORMAL LEFT VENTRICLE: DEPRESSED TRICUSPID VALVE: NORMAL MITRAL VALVE: NORMAL PULMONIC VALVE: NORMAL AORTIC VALVE: NORMAL PERICARDIAL EFFUSION: NONE AORTIC ROOT: NORMAL LEFT VENTRICULAR WALL MOTION: SEVERE ANTEROSEPTAL/ ANTERIOR HYPOKINESIS. DOPPLER/COLOR FLOW: SEE BELOW. COMMENTS: MODERATELY DEPRESSED LEFT VENTRICULAR EJECTION FRACTION 30-35%. SEVERE ANTEROSEPTAL AND ANTERIOR HYPOKINESIS. TECHNOLOGIST: JADE FERNANDEZ
== END 2020-08-31 14:29 | disposition home health service (06) | DRG 280 ==
LOC: ER 23:28 → ERHOLD 08-30 03:19 → 2ND 08-30 03:39
PROVIDERS: ADMIT Hospitalist; ATTEND Family Medicine
DX: I11.0 Hypertensive heart disease with heart failure (principal); J18.9 Pneumonia, unspecified organism; I22.2 Subsequent non-ST elevation (NSTEMI) myocardial infarction; I50.31 Acute diastolic (congestive) heart failure; I21.4 Non-ST elevation (NSTEMI) myocardial infarction; K21.9 Gastro-esophageal reflux disease without esophagitis; E78.5 Hyperlipidemia, unspecified; I25.10 Atherosclerotic heart disease of native coronary artery without angina pectoris; I48.91 Unspecified atrial fibrillation; I25.2 Old myocardial infarction; R09.02 Hypoxemia; R77.8 Other specified abnormalities of plasma proteins; Z95.1 Presence of aortocoronary bypass graft; Z79.01 Long term (current) use of anticoagulants; Z95.5 Presence of coronary angioplasty implant and graft; Z79.82 Long term (current) use of aspirin; Z79.899 Other long term (current) drug therapy; Z20.822 Contact with and (suspected) exposure to COVID-19
CPT/HCPCS: 36415; 71045; 80048; 80053; 80061; 80076; 81003; 81015; 83690; 83735; 83880; 84100; 84145; 84439; 84443; 84484; 85025; 85610; 85730; 87040; 93005; 93306; 94760; 96374; 99285; J1940; U0003